=== PATIENT | male | born 1950 | race Caucasian/White ===

== ENCOUNTER 2017-12-31 10:32 | Inpatient (IN) | payer MEDICARE ==
[~2017-12-31] VITALS: Ht 182.9 cm; Wt 102.0 kg
[2017-12-31] MEDS: POTASSIUM CHLOR 20 MEQ PREMIX 100 ML IV PRN ×3 (06:45→21:00)
[2017-12-31 10:36] VITALS: BP 188/109; PULSE 108; RESP 25; TEMP 97.8; O2SAT 99
[2017-12-31] MEDS ORDERED: SODIUM CHLOR 0.9% 1000 ML INJ 1,000 ML IV ONE (10:42)
[2017-12-31] MEDS ORDERED: HEPARIN SODIUM - IV 10,000 UNITS/10 ML VIAL IV PUSH STA (10:42)
[2017-12-31 10:45] VITALS: O2SAT 99
[2017-12-31] MEDS ORDERED: SODIUM CHLORIDE 0.9% FLUSH 10 ML FLUSH IVF PRN (10:45)
[2017-12-31] MEDS ORDERED: HEPARIN SODIUM - IV 10,000 UNITS/10 ML VIAL ONE (10:57)
[2017-12-31] MEDS ORDERED: NITROGLYCERIN INJ 5 ML ONE (10:57)
[2017-12-31] MEDS ORDERED: MIDAZOLAM HCL 2 MG/2 ML VIAL ONE (10:57)
--- NOTE | 2017-12-31 11:00 | PD ---
HPI Chief Complaint: Chest Pain Time Seen by Provider: 10:37 Travel History International Travel<30 days: No Contact w/Intl Traveler<30days: No Traveled to known affect area: No History of Present Illness HPI Patient is a 67 year old male who comes in complaining of chest pain and pain to his left arm that started this morning. He says he went to the gym and then went for a bicycle ride on the beach when the pain started. He denies any shortness of breath, diaphoresis or nausea/vomiting. He says he has never really experienced this before. He has no medical issues that he knows of. He denies cough or cold symptoms. Severity is mild to moderate. PFSH Past Medical History Tetanus Vaccination: Unknown Influenza Vaccination: Yes Past Surgical History Cholecystectomy: Yes Joint Replacement: Yes (hip replacement x3) Social History Alcohol Use: Yes (2-3 times a month ) Tobacco Use: No Substance Use: No Allergies-Medications (Allergen,Severity, Reaction): Coded Allergies: No Known Allergies (Unverified , 12/31/17) Review of Systems Except as stated in HPI: all other systems reviewed are Neg General / Constitutional: No: Fever, Chills HENT: No: Headaches, Lightheadedness Cardiovascular: Positive: Chest Pain or Discomfort Respiratory: No: Shortness of Breath Gastrointestinal: No: Nausea, Vomiting Skin: No Rash, No Change in Pigmentation Neurologic: No: Syncope Physical Exam Narrative GENERAL: Awake and alert, in no acute distress. SKIN: Focused skin assessment warm/dry. No wounds or signs of infection. HEAD: Atraumatic. Normocephalic. EYES: Pupils equal and round. No scleral icterus. ENT: Mucous membranes pink and moist. NECK: Trachea midline. No JVD. CARDIOVASCULAR: Regular rate and rhythm. No murmur appreciated. RESPIRATORY: No accessory muscle use. Clear to auscultation. Breath sounds equal bilaterally. GASTROINTESTINAL: Abdomen soft, non-tender, nondistended. MUSCULOSKELETAL: No obvious deformities. No clubbing. No cyanosis. No edema. NEUROLOGICAL: Awake and alert. No obvious cranial nerve deficits. Motor grossly within normal limits. Normal speech. PSYCHIATRIC: Appropriate mood and affect; insight and judgment normal. Data Data Last Documented VS Vital Signs Date Time Temp Pulse Resp B/P (MAP) Pulse Ox O2 Delivery O2 Flow Rate FiO2 12/31/17 10:45 99 2.00 6/21/18 10:45 Nasal Cannula 12/31/17 10:36 97.8 108 25 188/109 (135) Orders Orders Troponin I (12/31/17 10:42) Ckmb (Isoenzyme) Profile (12/31/17 10:42) Complete Blood Count With Diff (12/31/17 10:42) I-Stat Profile (12/31/17 10:42) I-Stat Creatinine (12/31/17 10:42) Calcium (12/31/17 10:42) Magnesium (Mg) (12/31/17 10:42) Prothrombin Time / Inr (Pt) (12/31/17 10:42) Act Partial Throm Time (Ptt) (12/31/17 10:42) B-Type Natriuretic Peptide (12/31/17 10:42) Chest, Single Ap (12/31/17 10:42) Electrocardiogram (12/31/17 10:42) Oxygen Administration (12/31/17 10:42) Iv Access Insert/Monitor (12/31/17 10:42) Oximetry (12/31/17 10:42) Sodium Chlor 0.9% 1000 Ml Inj (Ns 1000 M (12/31/17 10:42) Sodium Chloride 0.9% Flush (Ns Flush) (12/31/17 10:45) Heparin Inj (Heparin Inj) (12/31/17 10:42) Cardiac Catheterization (12/31/17 ) Midazolam Inj (Versed Inj) (12/31/17 10:57) Fentanyl Inj (Fentanyl Inj) (12/31/17 10:57) Heparin Inj (Heparin Inj) (12/31/17 10:57) Nitroglycerin Inj (Nitroglycerin Inj) (12/31/17 10:57) Admit Order (Ed Use Only) (12/31/17 ) MDM Medical Decision Making Medical Screen Exam Complete: Yes Emergency Medical Condition: Yes Medical Record Reviewed: Yes Interpretation(s) ECG shows ST elevation in leads V2-V4. Differential Diagnosis ACS vs STEMI vs NSTEMI Narrative Course Patient is a 67 year old male who comes in complaining of chest pain and left arm pain. Exam shows no acute abnormalities. ECG is concerning for STEMI. STEMI alert called. Patient took an Aspirin at home. Given Heparin. Nitro withheld as patient took Cialis. Labs sent. Cardiology contacted. Patient taken to the rn cardiac cath. Diagnosis Primary Impression: STEMI (ST elevation myocardial infarction) Qualified Codes: I21.3 - ST elevation (STEMI) myocardial infarction of unspecified site Admitting Information Admitting Physician Requests: it Jesusita Abreu MD Dec 31, 2017 11:00
[2017-12-31 11:05] LABS: AUTOMATED NEUTROPHIL # 6.5 TH/MM3 (1.8-7.7); BASOPHIL % 0.5 % (0.0-2.0); EOSINOPHIL % 0.5 % (0.0-4.0); HEMATOCRIT 45.5 % (39.0-51.0); HEMOGLOBIN 16.2 GM/DL (13.0-17.0); LYMPH % 18.9 % (9.0-44.0); LYMPHOCYTE # 1.7 TH/MM3 (1.0-4.8); MEAN CELL VOLUME 86.7 FL (80.0-100.0); MEAN CORPUSCULAR HEMOGLOBIN 30.8 PG (27.0-34.0); MEAN CORPUSCULAR HGB CONC 35.5 % (32.0-36.0); MEAN PLATELET VOLUME 8.2 FL (7.0-11.0); MONO % 8.5 % (0.0-8.0); MONOCYTE # 0.8 TH/MM3 (0-0.9); NEUT % 71.6 % (16.0-70.0); PLATELET COUNT 242 TH/MM3 (150-450); RED BLOOD COUNT 5.24 MIL/MM3 (4.50-5.90); RED CELL DISTRIBUTION WIDTH 13.6 % (11.6-17.2)
[2017-12-31] MEDS ORDERED: CIAL2.5T PO (11:11)
[2017-12-31] MEDS ORDERED: ASPI81TA23 PO (11:11)
[2017-12-31] MEDS ORDERED: SODIUM NITROPRUSSIDE 50 MG/2 ML VIAL ONE (11:14)
[2017-12-31 11:22] LABS: CALCIUM 9.3 MG/DL (8.5-10.1)
[2017-12-31 11:27] LABS: MAGNESIUM 2.1 MG/DL (1.5-2.5)
--- NOTE | 2017-12-31 11:29 | RADRPT ---
EXAM DATE: 12/31/2017 10:56 AM EDT AGE/SEX: 67 years / Male INDICATIONS: STEMI- alert CLINICAL DATA: This is the patient's initial encounter. Patient reports that signs and symptoms have been present for 1 day and indicates a pain score of 2/10. MEDICAL/SURGICAL HISTORY: None. None. COMPARISON: [facility], XR CHEST PA AND LAT, 02/27/2015. . FINDINGS: Portable AP view of the chest demonstrates a normal-sized cardiac silhouette. No effusion, consolidat ion, or pneumothorax is identified. The bones and soft tissues demonstrate no acute finding. Lungs ar e mildly underinflated. CONCLUSION: No acute cardiopulmonary abnormality is identified. Electronically signed by: Vinny Hensley MD 12/31/2017 11:27 AM EDT
[2017-12-31 11:31] LABS: TROPONIN I 0.24 NG/ML (0.02-0.05)
[2017-12-31] MEDS ORDERED: HEPARIN-D5W 25,000 U/250 ML 250 ML ONE (11:38)
[2017-12-31] MEDS ORDERED: TIROFIBAN INFUSION INJ 250 ML IV ONE (11:47)
[2017-12-31] MEDS ORDERED: PRASUGREL 10 MG TAB ONE (11:47)
[2017-12-31] MEDS: TIROFIBAN INFUSION INJ 250 ML IV SCH (12:11)
--- NOTE | 2017-12-31 12:28 | CATHPROC ---
[employer] HIS Report Study Information Study Number Admission Scheduled Start Study Start [id number] Dec 31 2017 10:32AM 12/31/2017 Dec 31 2017 10:58AM [place] [facility] Cardiac Catheterization Admit Source Facility Department Emergency department [facility] - Associate Professor Of Law Physician and Clinical Staff Initial Puma Burton Industrial Organization ManagerTess Sterling,RAVINDER Industrial Organization ManagerJodi Raymundo,RN Recorder Jodi Ramirez,RT(R) Scrub Victor Hugo, Pat,DATA MANAGEMENT TECH2 Procedures Performed Procedure Location (Site) Vessel Name Angiogram LV LV Ventricle Coronary Angiograms RCA Right Coronary Drug Eluting Inflatio LAD Mid Left Coronary IABP Fem Art (left) Femoral Art L Heart Cath LV Gram-hand inj. LV LV Ventricle Wire insertion Fem Art (left) Femoral Art Wire insertion Fem Art (right) Femoral Art Equipment Time Staff Nurse Icu Resource Team Description Size Mfg Part Number Used/Scraped [id number] 11:17 PEL[employer] WIRE, ASAHI PROWATER 180CM 180CM Used *[id number] TRANSDUCER, TRUWAVE [id number] 11:11 BOLAÑOS GUERRERO * Used W/STOCKCOCK *[id number] [id number] *[id number] [id number] *[id number] *[id number] PIGTAIL ANG. 145 INFINITI [id number] CATHETER *[id number] *[id number] BALLOON, FR8 50CC SENSATION [id number] 11:40 MAQUET FR 8 50CC Used PLUS 01U *[id number] 11:11 [employer] BLANKET,WARM AIR CCL * Used *[id number] 11:11 [employer] PACK, CCL CUSTOM * Used *[id number] 11:11 IdenIve PACER PEN, SKIN DUAL W/ RULER * Used *[id number] 11:21 MEDTRONIC BALLOON, 2.5 X 10MM EUPHORA 10MM Used *[id number] 11:20 MEDTRONIC STENT, 3.0 12 INTEGRITY 3.0 12 Used *[id number] 11:22 AdhereTech 30 KAITLIN INDEFLATOR Used *[id number] 11:11 [employer]hereTech WIRE, 3MMJ .035 180CM 180CM Used *[id number] 11:48 [employer] PACER SHEATH, FR8.5 MERIT 11CM FR 8.5 [id number] Used [id number] 11:11 NAMIC MANIFOLD, 4 PORT * Used *[id number] 11:11 NYCOMED OMNIPAQUE, 350 MG, 150ML 150ML [id number] Used [id number] 11:11 TERUMO MEDICAL SHEATH, FR4 TERUMO (10CM) FR 4 Used *[id number] 11:12 TERUMO MEDICAL SHEATH, FR6 TERUMO (10CM) FR 6 Used *[id number] 11:14 TERUMO MEDICAL SHEATH, FR6 TERUMO (10CM) FR 6 Used *[id number] 11:44 TERUMO MEDICAL SHEATH, FR8 TERUMO (10CM) FR 8 Used *[id number] Equipment Model, Serial, Lot Number and Expiration Data Description Model Number Serial Number Lot Number Expiration Date STENT, 3.0 12 INTEGRITY [id number] 04-13-2019 History: Allergies Allergy Reaction No Known Allergies History: Risk Factors Family History of Hypertension Dyslipidemia Previous PR Previous Heart Failure Premature CAD No No No No No Prior Valve Prior PCI Prior CABG Surgery No No No Cerebrovascular Peripheral Artery Chronic Lung On Dialysis Diabetes Disease Disease Disease No No No No No History: Symptoms/Diagnosis Selection Items Chest pain History: Stress Tests Stress or Imaging Studies Performed No History: Other Current Smoker No Labs Hgb (g/dl) Hct (%) RBC (MIL/MM3) WBC (l/cumm) Platelets (thousands) 11.60-17.00 35.00-51.00 4.00-5.90 4.00-11.00 150.00-450.00 16.2 45.5 5.2 9 242 Glucose (mg/dl) BUN (mg/dl) Creatinine (mg/dl) BUN:Creatinine (1:x) 74.00-106.00 7.00-18.00 0.50-1.30 10.00-20.00 129 27 1.2 22.5 Na (meq/l) K (meq/l) Cl (meq/l) Ca (mg/dl) 136.00-145.00 3.50-5.10 98.00-107.00 8.50-10.10 142 3.8 106 9.3 PT (sec) PTT (sec) INR (PTT:PT) 9.80-11.60 24.30-30.10 0.90-1.10 10 23.8 1 Troponin I (ng/ml) CPK (u/l) CPK-MB (ng/ML) 0.02-0.05 26.00-308.00 0.50-3.60 0.24 124 2.8 Medication Medication Total Dose (Bolus/Oral) Medication Total Dosage/Unit 1% XYLOCAINE 40 mL AGGRASTAT BOLUS 54 mL EFFIENT 60 mg FENTANYL 50 mcg HEPARIN 3000 units Medications (Bolus/Oral) Medication Time Given Dosage/Unit Administered By Reason 1% XYLOCAINE 12/31/2017 11:13:35 AM 20 mL Nate, Puma 20 mL 1% XYLOCAINE given by Puma Sullivan in Right Groin via Subcutaneous. HEPARIN 12/31/2017 11:19:24 AM 3000 units Nate, Puma 3000 units HEPARIN given in lab by Puma Sullivan via Peripheral IV. 1% XYLOCAINE 12/31/2017 11:27:48 AM 20 mL Nate, Puma 20 mL 1% XYLOCAINE given in lab by Puma Sullivan in Left Groin via Subcutaneous. FENTANYL 12/31/2017 11:29:50 AM 50 mcg Tess Villafuerte 50 mcg FENTANYL given in lab by Tess Villafuerte RN via Peripheral IV. EFFIENT 12/31/2017 11:50:08 AM 60 mg Tess Villafuerte 60 mg EFFIENT given in lab by Tess Villafuerte, RAVINDER via Oral. AGGRASTAT BOLUS 12/31/2017 12:08:44 PM 54 mL Tess Villafuerte 54 mL AGGRASTAT BOLUS given in lab by Tess Villafuerte RN in Left Antecubital via Peripheral IV. Medication (Drip) Medication Time Given Dosage/Unit Concentration/Unit Diluent (ml) Solution AGGRASTAT DRIP 12/31/2017 12:11:39 PM 0.15 mcg/kg/min 12.5 mg 250 NaCl .9 0.15 mcg/kg/min AGGRASTAT DRIP given in lab by Tess Villafuerte, RAVINDER via Peripheral IV. Pump/Drip Flow = 19.8 ml/hr using NaCl .9 with a concentration of 12.5 mg in 250 ml. HEPARIN DRIP 12/31/2017 12:07:46 PM 1000 units/hr 69635 units 250 D5W 1000 units/hr HEPARIN DRIP given in lab by Tess Villafuerte RN via Peripheral IV. Pump/Drip Flow = 10 ml/hr [place] [address] units in 250 ml. IV Solutions 12/31/2017 11:08:28 AM 50 mL (IV) NaCl .9 IV Solutions given by Tess Villafuerte RN via Peripheral IV. Pump/Drip Flow using NaCl .9. Ordered by Puma Sullivan. Initial Case Assessment Cardiovascular HR Rhythm NIBP Chest Pain [address] st 157/96 4 Edema Present Skin color Skin None Normal Warm Dry Circulatory - Right Pulses Dorsalis Pedis Femoral 2 2 Scale (0,1,2,3,4,d) Circulatory - Left Pulses Dorsalis Pedis Femoral 2 2 Scale (0,1,2,3,4,d) Circulatory - Lower Extremities Color Lower Right Color Lower Left Normal Normal Neurological State Oriented to time-place- Alert Moves all extremities person Respiration - General Respiration Rate SpO2 (%) O2 (lpm) (B/min) 14 97 2 Final Case Assessment Cardiovascular HR Rhythm NIBP Chest Pain 80 reg 139/122 0 Edema Present Skin color Skin None Normal Warm Circulatory - Right Pulses Dorsalis Pedis Femoral 2 2 Scale (0,1,2,3,4,d) Circulatory - Left Pulses Dorsalis Pedis Femoral 2 2 Scale (0,1,2,3,4,d) Circulatory - Lower Extremities Color Lower Right Color Lower Left Normal Normal Neurological State Oriented to time-place- Alert Moves all extremities person Respiration - General Respiration Rate SpO2 (%) O2 (lpm) (B/min) 13 100 2 Chronological Log Time Study Chronological Log 10:58:42 Patient arrived via Bed. 10:58:51 Patient Name, D.O.B, / Armband Verified By R.N. 10:59:34 Consent signed by the physician and the patient and verified by the Associate Professor Of Law staff. 11:06:25 Bilateral groins prepped with 2% chlorhexidine, and draped after a 3 minute waiting time. 11:06:43 Patient has been NPO for More than 6Hrs. 11:06:44 Skin Breakdown- none per patient 11:06:54 Disposable Defibrillator Pads Placed On Patient. 11:07:00 A # 20 IV was noted in the Antecubital (left). Grade = 0 11:08:15 A # 20 IV was noted in the Antecubital (right). Grade = 0 IV Solutions given by Tess Villafuerte, RAVINDER via Peripheral IV. Pump/Drip Flow using NaCl .9. Orde red by Nate, 11:08:28 Puma. 11:08:41 Pressure channel 1 zeroed. 11:08:47 History and physical on the chart or being dictated. Assessment: Initial Case, PM=266 BPM, Rhythm=st, MFWY=218/96 mmhg, Chest Pain=4, Edema=None, Co danna=Normal, Skin = Warm, Dry Right Pulses: Carlos Ped=2, Femoral=2 Left Pulses: Carlos Ped=2, Femoral=2 11:08:49 Lower Right Extremities: Color=Normal Lower Left Extremities: Color=Normal Neurological: State=Alert, Ox3, FIERRO Respiration: Resp=14 B/min, SpO2=97 %, O2=2 lpm Vitals capture started with the following parameters, Patient=Adult, Interval=5 min, Initial Pr okyemx=632 mmHg, 11:09:03 Deflation Rate=5 mmHg, Cuff placed on Left Arm 11:10:00 PH=122 bpm, VQWP=254/96 mmhg, SpO2=97.0 %, Resp=13 B/min, Pain=4, Michael=10, Terrell=2 11:10:48 MD arrived. Time Out. Correct patient, correct procedure, correct physician, labs, allergies, and equipment verified with slab worker 11:13:04 team present. Fire risk assesment completed (see hard stop sheet for coding). Time Out Conc urred by MD and individual staff in procedure. 11:13:19 Case Start 11:13:21 Verbal Stimulation=2 Physical Stimulation=2 Airway=2 Respiration=2 TOTAL=8. (0=absent, 1=li mited, 2=present) 11:13:35 20 mL 1% XYLOCAINE given by Puma Sullivan in Right Groin via Subcutaneous. 11:13:48 Access site was Right Femoral Artery.rt 11:13:54 A wire was inserted via Fem Art (right). 11:13:56 A SHEATH, FR6 TERUMO (10CM) FR 6 was advanced into the Fem Art (right) using the Percutaneo us technique. 11:14:10 Activated Clotting Time Drawn 11:14:16 Reference ECG taken A JR 4.0 INFINITI CATHETER FR 4 was advanced over a wire. OMNIPAQUE, 350 MG, 150ML 150ML was us ed for 11:14:32 injections. 11:15:07 FV=341 bpm, PVSG=017/58 mmhg, SpO2=93.0 %, Resp=13 B/min, Pain=4, Michael=10, Terrell=2 Recorded Pressure: LV, VK=199, Condition=Condition 1 11:15:11 (Left Ventricle) LV 115/60/63 11:15:25 The LV was manually injected with 8 cc's and visualized. OMNIPAQUE, 350 MG, 150ML 150ML use d. Recorded Pressure: LV, Ao, HR=97, Condition=Condition 1 11:15:27 (Left Ventricle) LV 146/20/35, (Aorta) Ao 152/101/127 11:16:15 The RCA was injected and visualized at various angles. OMNIPAQUE, 350 MG, 150ML 150ML used . 11:16:25 Catheter was removed A XB 3.5 GUIDE CATHETER FR 6 was advanced over a wire. OMNIPAQUE, 350 MG, 150ML 150ML was used for 11:17:10 injections. Recorded Pressure: Ao, SN=942, Condition=Condition 1 11:17:53 (Aorta) Ao 150/99/125 11:18:14 dr boucher/arnoldo consulted 11:18:49 ACT (Normal Range 90-180) = 222 11:19:13 A WIRE, ASAIntrinsic Life[employer]iences PROWATER 180CM 180CM was inserted via Fem Art (right). 11:19:24 3000 units HEPARIN given in lab by Puma Sullivan via Peripheral IV. 11:20:00 DX=831 bpm, IFMF=599/99 mmhg, SpO2=96.0 %, Resp=16 B/min 11:20:00 reperfusion A STENT, 3.0 12 INTEGRITY 3.0 12 was advanced through a XB 3.5 GUIDE CATHETER FR 6 over a WIRE, ASAHI 11:21:15 PROWATER 180CM 180CM. A STENT, 3.0 12 INTEGRITY 3.0 12 was deployed using a 30 KAITLIN INDEFLATOR at 16 atmospheres for 1 8 seconds in 11:21:28 the LAD Mid. 11:22:43 reperfusion rhythum Ventricular Tachycardia noted. shock 11:23:14 200joules 11:23:53 Ventricular Fibrillation noted. shock 11:24:02 300joules pt responding 11:24:26 11:24:44 Catheter was removed 11:24:59 HR=82 bpm, RLJR=609/101 mmhg, Resp=8 B/min, Pain=4, Michael=10, Terrell=2 11:27:27 sheath pulled out pressure held 11:27:48 20 mL 1% XYLOCAINE given in lab by Puma Sullivan in Left Groin via Subcutaneous. 11:29:04 Access site was Left Femoral Artery. 11:29:10 A wire was inserted via Fem Art (left). 11:29:29 A SHEATH, FR6 TERUMO (10CM) FR 6 was advanced into the Fem Art (left) using the Darci brooks technique. 11:29:50 50 mcg FENTANYL given in lab by Tess Villafuerte, RN via Peripheral IV. 11:29:58 HR=96 bpm, TJXF=437/96 mmhg, Resp=6 B/min, Pain=4, Michael=10, Terrell=2 11:31:16 power injector loaded now by harvey villafuerte and verified by todd ramirez A PIGTAIL ANG. 145 INFINITI CATHETER FR 6 was advanced over a wire. OMNIPAQUE, 350 MG, 150ML 15 0ML was 11:31:50 used for injections. 11:33:51 The LV was injected at 10 cc/sec for a total of 20. OMNIPAQUE, 350 MG, 150ML 150ML used. 11:34:15 Catheter was removed Recorded Pressure: Ao, HR=97, Condition=Condition 1 11:34:31 (Aorta) Ao 132/76/98 11:34:42 Sheath exchanged for intra-aortic balloon insertion. 11:34:57 JF=483 bpm, ROQY=466/93 mmhg, Resp=21 B/min, Pain=4, Michael=10, Terrell=2 11:35:12 ACT (Normal Range 90-180) = 278 11:39:54 HR=97 bpm, FMBG=347/90 mmhg, Resp=27 B/min, Pain=4, Michael=10, Terrell=2 A SHEATH, FR8.5 MERIT 11CM FR 8.5 was exchanged in the Fem Art (left). This was necessary in or mireille to 11:43:41 accomodate a larger catheter. An BALLOON, FR8 50CC SENSATION PLUS FR 8 50CC was advanced to the descending aorta. Proper plac ement was 11:44:24 confired under fluoroscopy and the balloon was sutured in place. Ratio = ~RATIO~. Augmented BP ~SYS~/~AN~ 11:44:53 HR=94 bpm, AJJJ=045/84 mmhg, Resp=11 B/min, Pain=4, Michael=10, Terrell=2 11:49:58 HR=98 bpm, IZKP=253/79 mmhg, Resp=17 B/min, Pain=4, Michael=10, Trerell=2 11:50:08 60 mg EFFIENT given in lab by Tess Villafuerte, RAVINDER via Oral. 11:54:55 HR=92 bpm, GBYV=966/85 mmhg, Resp=11 B/min, Pain=4, Michael=10, Terrell=2 11:57:08 balloon pump started 1:1 11:59:02 feb 93/57 11:59:52 HR=90 bpm, USXY=781/83 mmhg, Resp=20 B/min, Pain=4, Michael=10, Terrell=2 12:01:24 pump sutured/stat locked left groin 12:02:49 Case End (Physician broke scrub) 12:04:57 HR=86 bpm, PNWR=515/72 mmhg, Resp=10 B/min, Pain=4, Michael=10, Terrell=2 1000 units/hr HEPARIN DRIP given in lab by Tess Villafuerte, RAVINDER via Peripheral IV. Pump/Drip Abelardo w = 10 ml/hr using 12:07:46 D5[place] [address] units in 250 ml. 12:08:44 54 mL AGGRASTAT BOLUS given in lab by Tess Villafuerte, RAVINDER in Left Antecubital via Periphera l IV. 12:09:54 HR=82 bpm, EUJQ=443/87 mmhg, Resp=8 B/min, Pain=4, Michael=10, Terrell=2 0.15 mcg/kg/min AGGRASTAT DRIP given in lab by Tess Villafuerte, RN via Peripheral IV. Pump/Drip Flow = 19.8 12:11:39 ml/hr using NaCl .9 with a concentration of 12.5 mg in 250 ml. 12:14:55 HR=87 bpm, JWAG=996/88 mmhg, Resp=16 B/min, Pain=4, Michael=10, Terrell=2 12:20:54 HR=82 bpm, JDWO=787/122 mmhg, Resp=11 B/min, Pain=4, Michael=10, Terrell=2 Assessment: Final Case, HR=80 BPM, Rhythm=reg, PABE=312/122 mmhg, Chest Pain=0, Edema=None, Color=Normal, Skin = Warm Right Pulses: Carlso Ped=2, Femoral=2 Left Pulses: Carlos Ped=2, Femoral=2 12:21:26 Lower Right Extremities: Color=Normal Lower Left Extremities: Color=Normal Neurological: State=Alert, Ox3, FIERRO Respiration: Resp=13 B/min, SzH6=309 %, O2=2 lpm 12:22:01 Catheter(s) removed without difficulty 12:22:18 Sterile dressing applied to site 12:22:29 No case complications noted. 12:22:39 No case complications noted. 12:22:41 Cine recording checked. 12:22:44 Bedside Report will be given. 12:22:44 Implantable Device card placed in patient's chart. 12:22:55 Verbal Stimulation=2 Physical Stimulation=2 Airway=2 Respiration=2 TOTAL=2. (0=absent, 1=l imited, 2=present) 12:23:09 A Left Heart Cath was performed. 12:23:49 [facility] Clinical correlaton risk stratification. 12:25:47 HR=91 bpm, IWCP=068/101 mmhg, AjZ9=998 %, Resp=13 B/min, Pain=4, Michael=10, Terrell=2 12:26:36 Vitals capture stopped. End Study - Contrast Media Used In Study Contrast Total Opened (mL) Total Used (mL) Total Wasted (mL) Omnipaque 115 115 0 End Study - Maximum Contrast Load Max Contrast Load (mL) 458.3 End Study - Radiation Exposure Fluoro Time (minutes) 4.3 End Study - Patient Disposition Complications Transferred To Interventional Outcome No Critical Care Bed successful
[2017-12-31] MEDS ORDERED: PRASUGREL 10 MG TAB PO ONE (12:30)
[2017-12-31] MEDS ORDERED: MISC INFORMATION XX ONE (12:30)
[2017-12-31] MEDS ORDERED: SODIUM CHLORIDE 0.9% FLUSH 10 ML FLUSH IV FLUSH PRN ×2 (12:30→13:30)
--- NOTE | 2017-12-31 12:33 | MB ---
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 He was riding his bike this morning and developed chest pain at approximately 11 a.m. He rode his bike 5 miles back to his car, drove himself to the ER. He was found to have an anterior injury pattern on EKG. STEMI was called. The patient was emergently transported to the [facility]. Maximum chest pain was 6/10. 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 PAST MEDICAL HISTORY: Per history of present illness. PAST SURGICAL HISTORY: He has a history of cholecystectomy, bilateral hip replacement, joint replacement x3. SOCIAL HISTORY: Denies alcohol use. ALLERGIES: NONE. MEDICATIONS: No medications prior to admission. Received aspirin, heparin bolus and drip in the ER. PHYSICAL EXAMINATION: VITAL SIGNS: Initially blood pressure 188/109, pulse is 108, respiratory rate 25, temperature 97.8, and saturations 100% on 2 liters nasal cannula. GENERAL: He is alert and oriented x3, in mild to moderate distress. NECK: Supple. No JVD. No bruit. CARDIOVASCULAR: S1, S2. No murmurs, rubs, gallops. LUNGS: Clear to auscultation bilaterally. ABDOMEN: Soft, nontender, nondistended with positive bowel sounds. EXTREMITIES: No lower extremity edema. LABORATORY DATA: White count 9.0, hemoglobin 16.2, hematocrit 45.5, platelet count 242. INR is 1.0. Sodium 142, potassium 3.8, chloride 106, BUN is 27, creatinine 1.2, calcium 9.3, magnesium 2.1. Troponin 0.24. CK is 124. BNP is 38. INR is 1.0. Chest x-ray, no acute cardiopulmonary abnormalities identified. EKG shows normal sinus rhythm with 3-[address] segment elevation in V2, V3, V4, Q-waves in the inferior leads. DIAGNOSES: 1. ST-elevation myocardial infarction. 2. Probable prior inferior myocardial infarction, age indeterminate. 3. Hyperglycemia. DISCUSSION: The patient has received aspirin, heparin bolus and drip in the ER. Plan is for emergent left heart catheterization. Further recommendations based on the details of his coronary anatomy, left ventriculography. Puma Sullivan MD AWRadha/TL , 12:12 PM , 12:31 PM
--- NOTE | 2017-12-31 12:53 | MA ---
cc: Puma Sullivan MD DATE: 12/31/2017 PROCEDURE PERFORMED: Left heart catheterization, left ventriculography, coronary angiography, aortic root angiography, left common femoral angiography, percutaneous coronary intervention with bare metal stent of mid left anterior descending. INDICATIONS FOR PROCEDURE: STEMI. DESCRIPTION OF PROCEDURE: The patient was brought to the cardiac catheterization laboratory, prepped and draped in the usual sterile fashion. A 10 mL of 1% lidocaine was used to locally anesthetize the right common femoral artery. A 6-Mosotho sheath placed in right common femoral artery. A 4-Mosotho JR4, a 6-Mosotho XB 3.5 guide, and a 6-Mosotho pigtail catheter were used to perform left and right coronary angiography, left ventriculography, aortic root angiography and left common femoral angiography. FINDINGS: The LV pressure is 140/25-28. EF 30%. The inferoapical wall is severely hypokinetic to akinetic. Anterior wall is severely hypokinetic. Right coronary artery has a 90% proximal stenosis. It is occluded after what appears to be a slightly aneurysmal or ectatic segment. There is perfusion of an RV branch, but no perfusion beyond the RV branch. Appears to be calcification in the mid to distal segment fluoroscopically. Left main coronary artery has no significant disease angiographically. The LAD has mild diffuse disease in the proximal segment up to 20% angiographically. LAD is occluded at the first septal spool tender vessel. The first diagonal artery small to medium size vessel, reference vessel diameter of 2 mm. There is a proximal 90% stenosis. The left circumflex vessel is extremely tortuous in the proximal segment, has a near 150 degree bend off the left main with a high-grade 95% stenosis. Reference vessel diameter is 4 mm. Supplies a large, at least 3.5-4 mm, obtuse marginal vessel, which approaches the apex, which itself has mild to moderate diffuse disease up to 30-40% angiographically. Note, the initial ACT was 227. We gave an additional 3000 units of heparin with a final ACT of 278. A 6-Mosotho XB 3.5 guide 0.014 [place] guidewire was used to cross the mid LAD lesion. This did result in reperfusion of the LAD with a 95% stenosis. This was directly stented with a 3.0 x 12 Integrity stent, 1 inflation, 16 atmospheres for 20 seconds. Note at 16 atmospheres, there was slight under deployment of the distal segment of the stent. Stenosis went from 100% with ZAHRAA 0 flow to 0% with ZAHRAA 3 flow. The patient's chest pain was completely resolved. I did review the films with Dr. Cabrera and Dr. Rees. We did feel that risk/benefit ratio favored placing an intraaortic balloon pump given the severe 3-vessel coronary artery disease with cardiomyopathy as detailed above. While undergoing planning to put the balloon pump in, the patient developed V-fib approximately 5 minutes after reperfusion, did not respond to the first shock of 260 joules. He did cardiovert with a second shock of 260 joules. While the patient was in ventricular fibrillation, he sat up abruptly due to the shock and the right femoral sheath came out. We applied immediate pressure with good control of hemostasis. Got access in the left common femoral artery, then did an aortic root angiogram, which showed no evidence of aortic valve regurgitation. Aortic root appeared to be mildly dilated. Left common femoral artery was large with no stenosis. We then placed an intraaortic balloon pump sheath in the left common femoral artery and placed an intraaortic balloon pump set at one-to-one. The patient remained hemodynamically stable. Initial augmented pressure on the balloon pump was 112 mmHg. CONCLUSION: 1. ST elevation myocardial infarction; culprit, occluded mid left anterior descending as detailed above. 2. Severe 3-vessel coronary artery disease as detailed above. 3. Ischemic cardiomyopathy, ejection fraction 25-30% with severe hypokinesis to akinesis of the inferoapical and distal anteroapical wall. 4. Elevated left ventricular end-diastolic pressure equal to 27. 5. Mildly enlarged aortic root with no evidence of aortic insufficiency. 6. Normal appearing left common femoral artery. 7. Status post percutaneous coronary intervention with bare metal stent of the mid LAD. Reperfusion of the LAD did reveal a wraparound LAD with no high-grade stenoses beyond the stented segment. 8. Successful placement of an intraaortic balloon pump. RECOMMENDATIONS: Start Aggrastat drip protocol, 60 of p.o. Effient now and then 10 mg daily for 12-15 months. Aspirin 162 mg daily. Will continue heparin drip while intraaortic balloon pump is placed. Place a CT surgery consult. Get a 2D echo. Check a fasting lipids guidelines. ADDENDUM: Note, there are left to right collaterals to the right posterior descending coronary artery. The right PDA fills to a point of occlusion in the proximal segment. Reference vessel diameter is probably 2.25 to maybe 2.5 mm. Again, recommend CT surgery consult for consideration of risks and benefits of elective CABG. MD MELCHOR Leonard/SB , 12:18 PM , 12:52 PM
--- NOTE | 2017-12-31 13:07 | HHI.HP ---
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 Apparently he rode bike 5 miles back to the car and presented to the emergency department. Stat EKG showed anterolateral ST elevations and a STEMI alert was called. He was given aspirin and was emergently taken to the [facility]. He has no previous history of coronary artery disease or any other significant coronary artery risk factors other than age and sex. Cardiac catheterization by Dr. Sullivan showed occluded mid left anterior descending to be the culprit lesion, a bare-metal stent was placed. Patient was also found to have three-vessel coronary artery disease and ischemic cardiomyopathy with EF 25-30% with severe hypokinesis to akinesis of the inferoapical and distal anteroapical wall. Patient was continued on IV heparin, Aggrastat was started IV. Patient was also loaded with Effient. Dr. Sullivan placed IABP after PCI and stent. CT surgery was consulted for three-vessel coronary artery disease for CABG evaluation I evaluated the patient in the ICU. He is lying on bed denies any chest pain at this time, mildly anxious. IABP in place without hematoma at the insertion site-intermittently augmenting well. Cardiac catheterization site at right groin also without any hematoma. According to Dr. Sullivan patient had reperfusion arrhythmia/ventricular fibrillation in [facility] which needed cardioversion x2. Will start on IV amiodarone per Dr. Vicente. I will also add carvedilol 3.125 mg twice daily, and Lipitor Review of Systems ROS Limitations: Other (as per HPI) Past Family Social History Allergies: Coded Allergies: No Known Allergies (Unverified , 12/31/17) Past Medical History No significant past medical history Past Surgical History Cholecystectomy, bilateral hip replacement Reported Medications Apparently not on any meds at home Active Ordered Medications Currently on IV heparin and IV Aggrastat infusions Family History Father had atrial fibrillation at the age of 80 Mother of complications from Parkinson's disease Social History No tobacco use. Occasional alcohol use Physical Exam Vital Signs Vital Signs Date Time Temp Pulse Resp B/P (MAP) Pulse Ox O2 Delivery O2 Flow Rate FiO2 12/31/17 10:45 99 2.00 12/31/17 10:45 100 Nasal Cannula 2.00 12/31/17 10:36 97.8 108 25 188/109 (135) 99 Physical Exam GENERAL: Awake and alert, in mild distress. Denies chest pain at this time SKIN: Warm/dry. HEAD: Atraumatic. Normocephalic. EYES: Pupils equal and round. No scleral icterus. ENT: Mucous membranes pink and moist. NECK: Trachea midline. No JVD. CARDIOVASCULAR: Regular rate and rhythm. No murmur appreciated, but exam limited by conducted IABP sounds. Intermittently augmenting well RESPIRATORY: No accessory muscle use. Clear to auscultation. Breath sounds equal bilaterally. GASTROINTESTINAL: Abdomen soft, non-tender, nondistended. MUSCULOSKELETAL: Right groin cath site without hematoma. Left groin IABP incision site without hematoma. Peripheral pulses are palpable NEUROLOGICAL: Awake and alert. No obvious cranial nerve deficits. Motor grossly within normal limits. Normal speech. Laboratory Laboratory Tests Test 12/31/17 10:45 White Blood Count 9.0 Red Blood Count 5.24 Hemoglobin 16.2 Bedside Hemoglobin 15.3 Hematocrit 45.5 Bedside Hematocrit 45.0 Mean Corpuscular Volume 86.7 Mean Corpuscular Hemoglobin 30.8 Mean Corpuscular Hemoglobin Concent 35.5 Red Cell Distribution Width 13.6 Platelet Count 242 Mean Platelet Volume 8.2 Neutrophils (%) (Auto) 71.6 Lymphocytes (%) (Auto) 18.9 Monocytes (%) (Auto) 8.5 Eosinophils (%) (Auto) 0.5 Basophils (%) (Auto) 0.5 Neutrophils # (Auto) 6.5 Lymphocytes # (Auto) 1.7 Monocytes # (Auto) 0.8 Eosinophils # (Auto) 0.0 Basophils # (Auto) 0.0 CBC Comment DIFF FINAL Differential Comment Prothrombin Time 10.0 Prothromb Time International Ratio 1.0 Activated Partial Thromboplast Time 23.8 Bedside Sodium 142 Bedside Potassium 3.8 Bedside Chloride 106 Bedside Blood Urea Nitrogen 27 Bedside Creatinine 1.2 Bedside Glucose 129 Calcium Level 9.3 Magnesium Level 2.1 Total Creatine Kinase 124 Creatine Kinase MB 2.8 Troponin I 0.24 B-Type Natriuretic Peptide 38 Result Diagram: 12/31/17 1045 Imaging Chest x-ray shows no acute finding Septic Shock Reassessment Septic shock perfusion: reassessment completed Caprini VTE Risk Assessment Caprini VTE Risk Assessment: Mod/High Risk (score >= 2) Caprini Risk Assessment Model Point Value = 1 Point Value = 2 Point Value = 3 Point Value = 5 Age 41-60 Minor surgery BMI > 25 kg/m2 Swollen legs Varicose veins or History of unexplained or recurrent spontaneous Oral contraceptives or hormone replacement Sepsis (< 1 month) Serious lung disease, including pneumonia (< 1 month) Abnormal pulmonary function Acute myocardial infarction Congestive heart failure (< 1 month) History of inflammatory bowel disease Medical patient at bed rest Age 61-74 Arthroscopic surgery Major open surgery (> 45 min) Laparoscopic surgery (> 45 min) Malignancy Confined to bed (> 72 hours) Immobilizing plaster cast Central venous access Age >= 75 History of VTE Family history of VTE Factor V Leiden Prothrombin [id number] Lupus anticoagulant Anticardiolipin antibodies Elevated serum homocysteine Heparin-induced thrombocytopenia Other congenital or acquired thrombophilia Stroke (< 1 month) Elective arthroplasty Hip, pelvis, or leg fracture Acute spinal cord injury (< 1 month) Prophylaxis Regimen Total Risk Factor Score Risk Level Prophylaxis Regimen 0-1 Low Early ambulation 2 Moderate Order ONE of the following: *Sequential Compression Device (SCD) *Heparin 5000 units SQ BID 3-4 Higher Order ONE of the following medications: *Heparin 5000 units SQ TID *Enoxaparin/Lovenox 40 mg SQ daily (WT < 150 kg, CrCl > 30 mL/min) *Enoxaparin/Lovenox 30 mg SQ daily (WT < 150 kg, CrCl > 10-29 mL/min) *Enoxaparin/Lovenox 30 mg SQ BID (WT < 150 kg, CrCl > 30 mL/min) AND/OR *Sequential Compression Device (SCD) 5 or more Highest Order ONE of the following medications: *Heparin 5000 units SQ TID (Preferred with Epidurals) *Enoxaparin/Lovenox 40 mg SQ daily (WT < 150 kg, CrCl > 30 mL/min) *Enoxaparin/Lovenox 30 mg SQ daily (WT < 150 kg, CrCl > 10-29 mL/min) *Enoxaparin/Lovenox 30 mg SQ BID (WT < 150 kg, CrCl > 30 mL/min) AND *Sequential Compression Device (SCD) Assessment and Plan Assessment and Plan NEURO: -Use as needed morphine for pain RESP: -Nasal cannula oxygen, if needed to keep sats above 92% -Aggressive pulmonary toilet CV: Acute STEMI Ischemic cardiomyopathy Multivessel coronary artery disease Reperfusion arrhythmia/ventricular fibrillation -Patient is status post cardiac catheterization and BMS to the LAD -Received aspirin in the ED, continue aspirin daily -Post PCI/stent placed on Effient, IV Aggrastat -Continue IV heparin -IABP with one-to-one augmentation -Start loading dose of amiodarone IV followed by p.o. amiodarone -Start carvedilol 3.125 mg every 12 -Lipitor started by cardiology will increase to 40 mg nightly, check lipid profile -Check 2D echo tomorrow evening per Dr. Sullivan -Cardiothoracic surgery Dr. Vicente consulted for possible CABG GI: -Diet when cleared by Dr. Sullivan -IV famotidine for GI prophylaxis : -Monitor renal function closely. Place Tillman/condom catheter with IABP in place ID: -Periprocedural antibiotics per cardiology HEME: -Monitor CBC, CMP, coags ENDO: -Electrolyte replacement per protocol PROPH: -IV heparin, IV famotidine LINES: -Utilize peripheral IVs, central line if needed CC time 45 min Addendum: Unable to locate IABP tip on CXR, radiologist reported possible tip at L 2 level on KUB. D/W Dr. Vicente and reviewed films with him. Unlikely to be that low given intermittent adequate augmentation. Also there is no evidence of catheter migration on examining insertion site since placement. (Placement was confirmed in [facility] by fluoro) Code Status Full Discussed Condition With Lucille Vicente and Nate Problem Qualifiers (1) STEMI (ST elevation myocardial infarction): Qualified Codes: I21.3 - ST elevation (STEMI) myocardial infarction of unspecified site Melissa Casillas MD Dec 31, 2017 13:07
[2017-12-31] MEDS ORDERED: POTASSIUM PHOSPHATE INJ 30 MMOL in SODIUM CHLOR 0.9% 250 ML INJ 250 ML IV PRN (13:15)
[2017-12-31] MEDS ORDERED: MAGNESIUM SULFATE INJ 2 GM in SODIUM CHLORIDE 0.9% INJ 96 ML IV PRN (13:15)
[2017-12-31] MEDS ORDERED: POTASSIUM CHLOR 20 MEQ PREMIX 100 ML IV PRN (13:15)
[2017-12-31] MEDS ORDERED: POTASSIUM PHOSPHATE MONOBASIC 500 MG TAB PO PRN (13:15)
[2017-12-31] MEDS ORDERED: MAGNESIUM OXIDE 400 MG TAB PO PRN (13:15)
[2017-12-31] MEDS ORDERED: POTASSIUM CHLORIDE 25 MEQ EFFERVESCENT TAB PO PRN (13:15)
[2017-12-31] MEDS ORDERED: MAGNESIUM SULFATE INJ 4 GM in SODIUM CHLORIDE 0.9% INJ 92 ML IV PRN (13:15)
[2017-12-31] MEDS ORDERED: POTASSIUM PHOSPHATE MONOBASIC 500 MG TAB PO/TUBE PRN (13:15)
[2017-12-31] MEDS ORDERED: POTASSIUM CHLOR 40 MEQ PREMIX 100 ML IV PRN ×3 (13:15→18:45)
[2017-12-31] MEDS ORDERED: SODIUM PHOSPHATE INJ 30 MMOL in SODIUM CHLOR 0.9% 250 ML INJ 240 ML IV PRN (13:15)
[2017-12-31] MEDS ORDERED: AMIODARONE INJ 150 MG in DEXTROSE 5% IN WATER 100ML INJ 100 ML IV ONE ×4 (13:19→18:00)
[2017-12-31] MEDS: MUPIROCIN 2% OINT 1 APPLIC/GM SYR EACH NARE SCH ×2 (13:30→21:00)
[2017-12-31] MEDS ORDERED: CHLORHEXIDINE GLUCONATE 4% SOLN 120 ML BTL TOPICAL SCH (13:30)
[2017-12-31] MEDS ORDERED: PAPAVERINE INJ 60 MG, NITROGLYCERIN INJ 100 MCG, DILTIAZEM INJ 100 MG in SODIUM CHLORID... IRRIGATION SCH (13:30)
[2017-12-31] MEDS ORDERED: INSULIN REGULAR (IV INFUSION) 100 UNITS in SODIUM CHLORIDE 0.9% INJ 99 ML IV PRN (13:30)
[2017-12-31] MEDS ORDERED: CEFAZOLIN INJ 500 MG in SODIUM CHLORIDE 0.9% IRR BTL 500 ML IRRIGATION SCH (13:30)
[2017-12-31] MEDS ORDERED: ceFAZolin 2 GM PREMIX 50 ML IV SCH (13:30)
[2017-12-31] MEDS ORDERED: CARVEDILOL 3.125 MG TAB PO SCH ×2 (13:30→21:00)
[2017-12-31] MEDS ORDERED: DEXTROSE 50% IN WATER 50 ML VIAL(D50) IV PUSH PRN (13:30)
--- NOTE | 2017-12-31 13:47 | PD.CONS ---
History of Present Illness Service CT Surgery Consult Requested By Dr. 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 He was noted to have ST elevation on ECG and a STEMI alert was called. He was taken to the garden labourer and found to have 3 vessel CAD with RCA and LAD occlusion , ~80% proximal LCx lesion and EF ~35%. The LAD was emergently stented, the patient was loaded with Effient, and an IABP pump was placed. He had ventricular fibrillation in the garden labourer and was defibrillated after 2 shocks. He has ruled-in for STEMI by ECG and troponin. He is being evaluated for CABG. He denies any cardiac history or other health issues. Review of Systems Constitutional: COMPLAINS OF: Diaphoretic episodes, DENIES: Fatigue, Fever, Weight gain, Weight loss, Chills, Dizziness, Change in appetite, Night Sweats Endocrine: DENIES: Heat/cold intolerance, Polydipsia, Polyuria, Polyphagia Eyes: DENIES: Blurred vision, Diplopia, Eye inflammation, Eye pain, Vision loss , Photosensitivity, Double Vision Ears, nose, mouth, throat: DENIES: Tinnitus, Hearing loss, Vertigo, Nasal discharge, Oral lesions, Throat pain, Hoarseness, Ear Pain, Running Nose, Epistaxis, Sinus Pain, Toothache, Odynophagia Respiratory: DENIES: Apneas, Cough, Snoring, Wheezing, Hemoptysis, Sputum production, Shortness of breath Cardiovascular: COMPLAINS OF: Chest pain, DENIES: Palpitations, Syncope, Dyspnea on Exertion, PND, Lower Extremity Edema, Orthopnea, Claudication Gastrointestinal: COMPLAINS OF: Nausea, DENIES: Abdominal pain, Black stools, Bloody stools, Constipation, Diarrhea, Vomiting, Difficulty Swallowing, Anorexia Genitourinary: DENIES: Sexual dysfunction, Urinary frequency, Urinary incontinence, Urgency, Hematuria, Dysuria, Nocturia, Penile Discharge, Testicular Pain, Testicular Swelling Musculoskeletal: DENIES: Joint pain, Muscle aches, Stiffness, Joint Swelling, Back pain, Neck pain Integumentary: DENIES: Abnormal pigmentation, Nail changes, Pruritus, Rash Hematologic/lymphatic: DENIES: Bruising, Lymphadenopathy Immunologic/allergic: DENIES: Eczema, Urticaria Neurologic: DENIES: Abnormal gait, Headache, Localized weakness, Paresthesias, Seizures, Speech Problems, Tremor, Poor Balance Psychiatric: DENIES: Anxiety, Confusion, Mood changes, Depression, Hallucinations, Agitation, Suicidal Ideation, Homicidal Ideation, Delusions Past Family Social History Allergies: Coded Allergies: No Known Allergies (Unverified , 12/31/17) Past Medical History HTN Past Surgical History s/p cholecystectomy 3 yrs go Bilateral hip replacements with an additional revision Reported Medications Cialis Aspirin Active Ordered Medications Current Medications Medications (Trade) Dose Ordered Sig/Pascual Route Start Time Stop Time Status Last Admin (NS Flush) 2 ml UNSCH PRN IVF 12/31/17 10:45 12/31/17 10:48 (NS Flush) 2 ml UNSCH PRN IV FLUSH 12/31/17 12:30 (NS Flush) 2 ml BID IV FLUSH 12/31/17 21:00 (Aspirin Chew) 162 mg DAILY PO 01/01/18 09:00 (Effient) 10 mg DAILY PO 01/01/18 09:00 Tirofiban/Sodium Chloride 250 ml @ 19.8 mls/hr [id number] IV 12/31/17 12:20 01/01/18 06:19 (Lipitor) 40 mg HS PO 12/31/17 21:00 Potassium Chloride 100 ml @ 50 mls/hr Q2H PRN IV 12/31/17 13:15 UNV Potassium Chloride 100 ml @ 50 mls/hr Q2H PRN IV 12/31/17 13:15 UNV (K-Lyte Cl Eff) 50 meq UNSCH PRN PO 12/31/17 13:15 UNV Potassium Chloride 100 ml @ 25 mls/hr UNSCH PRN IV 12/31/17 13:15 UNV Potassium Chloride 100 ml @ 50 mls/hr Q2H PRN IV 12/31/17 13:15 UNV Magnesium Sulfate 4 gm/Sodium Chloride 100 ml @ 50 mls/hr UNSCH PRN IV 12/31/17 13:15 UNV (Mag-Ox) 800 mg UNSCH PRN PO 12/31/17 13:15 UNV Magnesium Sulfate 2 gm/Sodium Chloride 100 ml @ 50 mls/hr UNSCH PRN IV 12/31/17 13:15 UNV (K-Phos) 2,000 mg Q4H PRN PO 12/31/17 13:15 UNV Sodium Phosphate 30 mmol/Sodium Chloride 250 ml @ 42 mls/hr UNSCH PRN IV 12/31/17 13:15 UNV (K-Phos) 2,000 mg UNSCH PRN PO/TUBE 12/31/17 13:15 UNV Potassium Phosphate 30 mmol/ Sodium Chloride 260 ml @ 42 mls/hr UNSCH PRN IV 12/31/17 13:15 UNV (Pepcid Inj) 20 mg Q12H IV PUSH 12/31/17 13:15 UNV Family History Denies cardiac disease, cancer Social History Tobacco abuse ~40yrs ago 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 SKIN: No rashes, ecchymoses or lesions. Cool and dry. HEAD: Atraumatic. Normocephalic. No temporal or scalp tenderness. EYES: Pupils equal round and reactive. Extraocular motions intact. No scleral icterus. No injection or drainage. ENT: Nose without bleeding, purulent drainage or septal hematoma. Throat without erythema, tonsillar hypertrophy or exudate. Uvula midline. Airway patent. NECK: Trachea midline. No JVD or lymphadenopathy. Supple, nontender, no meningeal signs. CARDIOVASCULAR: Regular rate and rhythm without murmurs, gallops, or rubs. RESPIRATORY: Clear to auscultation. Breath sounds equal bilaterally. No wheezes , rales, or rhonchi. GASTROINTESTINAL: Abdomen soft, non-tender, nondistended. No hepato-splenomegaly , or palpable masses. No guarding. MUSCULOSKELETAL: Extremities without clubbing, cyanosis, or edema. No joint tenderness, effusion, or edema noted. No calf tenderness. Negative Homans sign bilaterally. NEUROLOGICAL: Awake and alert. Cranial nerves II through XII intact. Motor and sensory grossly within normal limits. Five out of 5 muscle strength in all muscle groups. Normal speech. Laboratory Laboratory Tests Test 12/31/17 10:45 White Blood Count 9.0 Red Blood Count 5.24 Hemoglobin 16.2 Bedside Hemoglobin 15.3 Hematocrit 45.5 Bedside Hematocrit 45.0 Mean Corpuscular Volume 86.7 Mean Corpuscular Hemoglobin 30.8 Mean Corpuscular Hemoglobin Concent 35.5 Red Cell Distribution Width 13.6 Platelet Count 242 Mean Platelet Volume 8.2 Neutrophils (%) (Auto) 71.6 Lymphocytes (%) (Auto) 18.9 Monocytes (%) (Auto) 8.5 Eosinophils (%) (Auto) 0.5 Basophils (%) (Auto) 0.5 Neutrophils # (Auto) 6.5 Lymphocytes # (Auto) 1.7 Monocytes # (Auto) 0.8 Eosinophils # (Auto) 0.0 Basophils # (Auto) 0.0 CBC Comment DIFF FINAL Differential Comment Prothrombin Time 10.0 Prothromb Time International Ratio 1.0 Activated Partial Thromboplast Time 23.8 Bedside Sodium 142 Bedside Potassium 3.8 Bedside Chloride 106 Bedside Blood Urea Nitrogen 27 Bedside Creatinine 1.2 Bedside Glucose 129 Calcium Level 9.3 Magnesium Level 2.1 Total Creatine Kinase 124 Creatine Kinase MB 2.8 Troponin I 0.24 B-Type Natriuretic Peptide 38 Result Diagram: 12/31/17 1045 Imaging Last Impressions Chest X-Ray 12/31/17 1042 Signed Impressions: CONCLUSION: No acute cardiopulmonary abnormality is identified. Course Patient admitted to CVICU with IABP 1:1. Denies chest pain or discomfort. Assessment and Plan Problem List: (1) STEMI (ST elevation myocardial infarction) ICD Codes: I21.3 - ST elevation (STEMI) myocardial infarction of unspecified site Status: Acute (2) Ischemic cardiomyopathy ICD Codes: I25.5 - Ischemic cardiomyopathy (3) On intra-aortic balloon pump assist ICD Codes: Z98.890 - Other specified postprocedural states (4) Multi-vessel coronary artery stenosis ICD Codes: I25.10 - Atherosclerotic heart disease of [place] coronary artery without angina pectoris (5) Ventricular fibrillation ICD Codes: I49.01 - Ventricular fibrillation Assessment and Plan 67y/o male presents with STEMI. LAD was the culprit vessel and was stented. IABP in place and he is stable. Coreg and amiodarone started. Will also start a statin now. He was loaded with Effient in the garden labourer. CABG recommended. Risks and benefits discussed with him and he agrees to proceed. STS as follows: Risk Model and Variables - STS Adult Cardiac Surgery Database Version 2.81 RISK SCORES About the STS Risk Calculator Procedure: CAB Only Risk of Mortality: 1.341% Morbidity or Mortality: 21.767% Long Length of Stay: 5.898% Short Length of Stay: 38.376% Permanent Stroke: 0.864% Prolonged Ventilation: 16.851% DSW Infection: 0.375% Problem Qualifiers (1) STEMI (ST elevation myocardial infarction): Qualified Codes: I21.3 - ST elevation (STEMI) myocardial infarction of unspecified site Jennifer Rees MD Dec 31, 2017 13:47
[2017-12-31] MEDS ORDERED: MORPHINE SULFATE 4 MG/ML INJ SQ PRN (14:00)
--- NOTE | 2017-12-31 14:30 | RADRPT ---
EXAM DATE: 12/31/2017 2:17 PM EDT AGE/SEX: 67 years / Male INDICATIONS: Balloon pump Placement. Chest pain. CLINICAL DATA: This is the patient's subsequent encounter. Patient reports that signs and symptoms h ave been present for 1 day and indicates a pain score of 0/10. MEDICAL/SURGICAL HISTORY: None. None. COMPARISON: [facility] [place], CHEST SINGLE AP, 12/31/2017. . FINDINGS: A single AP view of the chest demonstrates the lungs to be symmetrically aerated without evidence of mass, infiltrate or effusion. The cardiomediastinal contours are unremarkable. Osseous structures a re intact. CONCLUSION: No acute cardiopulmonary process. Electronically signed by: Vinny Daniel MD 12/31/2017 2:29 PM EDT
[2017-12-31 14:40] LABS: MAGNESIUM 1.9 MG/DL (1.5-2.5); PHOSPHORUS 2.2 MG/DL (2.5-4.9)
[2017-12-31 14:42] LABS: CHOLESTEROL/ HDL RATIO 4.16 RATIO; HDL CHOLESTEROL 41.5 MG/DL (40.0-60.0)
[2017-12-31 14:43] LABS: ALBUMIN 3.2 GM/DL (3.4-5.0); AST (GOT) 52 U/L (15-37); BICARBONATE 21.4 MEQ/L (21.0-32.0); BLOOD UREA NITROGEN 21 MG/DL (7-18); CALCIUM 8.3 MG/DL (8.5-10.1); CHLORIDE 112 MEQ/L (98-107); CREATININE 0.93 MG/DL (0.60-1.30); GLOMERULAR FILTRATION RATE 81 ML/MIN (>89); GLUCOSE,RANDOM 123 MG/DL (74-106); SODIUM (NA) 142 MEQ/L (136-145)
[2017-12-31 14:54] LABS: ALKALINE PHOSPHATASE 74 U/L (45-117); ALT (GPT) 28 U/L (12-78); TOTAL BILIRUBIN ADULT 0.6 MG/DL (0.2-1.0); TOTAL PROTEIN 6.3 GM/DL (6.4-8.2)
[2017-12-31 15:00] VITALS: BP_SYST 119; BP_SYST 94; BP_DIAS 59; BP_DIAS 66; PULSE 77; PULSE 85; RESP 16; TEMP 98; O2SAT 97
[2017-12-31] MEDS ORDERED: METOPROLOL TARTRATE 5 MG/5 ML VIAL IV PUSH ONE (15:00)
[2017-12-31] MEDS ORDERED: METOPROLOL TARTRATE 5 MG/5 ML VIAL ONE (15:03)
[2017-12-31] MEDS ORDERED: PAPAVERINE INJ 60 MG, NITROGLYCERIN INJ 100 MCG, VERAPAMIL INJ 100 MG in SODIUM CHLORID... IRRIGATION SCH (15:30)
--- NOTE | 2017-12-31 15:54 | RADRPT ---
EXAM DATE: 12/31/2017 3:39 PM EDT AGE/SEX: 67 years / Male INDICATIONS: KUB CLINICAL DATA: This is the patient's initial encounter. Patient reports that signs and symptoms have been present for 1 day and indicates a pain score of 0/10. MEDICAL/SURGICAL HISTORY: None. . Balloon pump insertion COMPARISON: No prior exams available for comparison. FINDINGS: The abdominal bowel gas pattern is normal. No abnormal masses, calcifications, or organomegaly is s een. There is a left femoral catheter present. The tip of a balloon catheter is thought to be project ing over the L2 vertebral body. Clips are seen in the right upper quadrant. Bilateral hip prostheses are present. CONCLUSION: It appears the tip of the aortic balloon pump is projecting over the left aspect of the L2 vertebral body. This would be in the mid abdominal aorta. Electronically signed by: Vinny Daniel MD 12/31/2017 3:53 PM EDT
[2017-12-31] MEDS ORDERED: MAGNESIUM SULFATE 1 GM PREMIX 100 ML IV ONE ×2 (16:00→18:45)
[2017-12-31] MEDS: FAMOTIDINE 20 MG/2 ML VIAL IV PUSH SCH ×2 (16:11→21:10)
[2017-12-31 16:32] LABS: BACTERIA, URINE OCC /hpf; BILIRUBIN, URINE NEG (NEG); BLOOD, URINE LARGE (NEG); GLUCOSE,URINE NEG (NEG); KETONE, URINE NEG (NEG); NITRITE,URINE NEG (NEG); URINE COLOR Red (YELLW/STRAW); URINE LEUKOCYTE ESTERASE NEG (NEG)
[2017-12-31] MEDS ORDERED: HEPARIN SODIUM - IV 10,000 UNITS/10 ML VIAL IV PUSH PRN (17:00)
[2017-12-31 17:03] LABS: HEMOGLOBIN A1C 5.6 % (4.3-6.0)
[2017-12-31] MEDS: HEPARIN 25,000 UNITS-D5W 250 ML - PREMIX IV PRN (17:07)
[2017-12-31] MEDS ORDERED: IOHEXOL 350 MG/ML 50 ML BTL (for Cath Lab) OTHER ONE (17:27)
[2017-12-31] MEDS ORDERED: IOHEXOL 350 MG/ML 100 ML BTL (for Cath Lab) OTHER ONE (17:27)
--- NOTE | 2017-12-31 17:47 | RADRPT ---
EXAM DATE: 12/31/2017 5:33 PM EDT AGE/SEX: 67 years / Male INDICATIONS: Pre op cardiac surgery. CLINICAL DATA: This is the patient's initial encounter. Patient reports that signs and symptoms have been present for 1 day and indicates a pain score of 0/10. MEDICAL/SURGICAL HISTORY: . VFib. Myocardial infarction. Coronary artery disease. Cholecystect gris. Bilateral hip replacement. Cardiac catheterization. COMPARISON: No prior exams available for comparison. VELOCITY PARAMETERS: ICA/CCA Ratio: Right 0.91 , Left 0.73 ICA: Right 99 cm/sec, Left 86 cm/sec CCA: Right 108 cm/sec, Left 117 cm/sec ECA: Right 109 cm/sec, Left 119 cm/sec Vertebral: Right 35 cm/sec antegrade, Left 45 cm/sec antegrade FINDINGS: Right Carotid: Minimal nonshadowing plaque in the common carotid artery and bulb.The waveforms are w ithin normal limits. Left Carotid: No significant plaque is visualized. The waveforms are within normal limits. Other: None. CONCLUSION: 1. Right Internal Carotid Artery: Findings indicate <50% stenosis. 2. Left Internal Carotid Artery: Findings indicate <50% stenosis. Electronically signed by: Aamir Mohan MD 12/31/2017 5:46 PM EDT
[2017-12-31] MEDS ORDERED: METOPROLOL TARTRATE 5 MG/5 ML VIAL IV PUSH PRN (18:00)
[2017-12-31] MEDS ORDERED: AMIODARONE INJ 450 MG in DEXTROSE 5% IN WATE(EXCEL) INJ 241 ML IV PRN ×2 (18:02)
--- NOTE | 2017-12-31 18:12 | EKG ---
Date Performed: 12/31/2017 Time Performed: 10:40:38 PTAGE: 67 years EKG: Sinus rhythm WITH MARKED SINUS ARRHYTHMIA LOW QRS VOLTAGE IN PRECORDIAL LEADS POSSIBLE RIGHT VENTRICULAR CONDUCTI ON DELAY INFERIOR MYOCARDIAL INFARCTION ANTEROLATERAL MYOCARDIAL INFARCTION ST ELEVATION, CONSIDER SE PTAL INJURY ACUTE MT PREVIOUS TRACING : 08/10/2001 08.00 When compared to the prior EKG,patient now appears to be having an acute ST elevation MT Clinical correlation is recommended DOCTOR: Britany Keenan Interpretating Date/Time 12/31/2017 18:10:36
[2017-12-31 18:19] LABS: AUTOMATED NEUTROPHIL # 7.4 TH/MM3 (1.8-7.7); BASOPHIL % 0.5 % (0.0-2.0); EOSINOPHIL % 0.3 % (0.0-4.0); HEMATOCRIT 41.6 % (39.0-51.0); HEMOGLOBIN 14.2 GM/DL (13.0-17.0); LYMPH % 18.4 % (9.0-44.0); LYMPHOCYTE # 1.9 TH/MM3 (1.0-4.8); MEAN CELL VOLUME 88.2 FL (80.0-100.0); MEAN CORPUSCULAR HEMOGLOBIN 30.1 PG (27.0-34.0); MEAN CORPUSCULAR HGB CONC 34.2 % (32.0-36.0); MEAN PLATELET VOLUME 8.4 FL (7.0-11.0); MONO % 8.7 % (0.0-8.0); MONOCYTE # 0.9 TH/MM3 (0-0.9); NEUT % 72.1 % (16.0-70.0); PLATELET COUNT 256 TH/MM3 (150-450); RED BLOOD COUNT 4.71 MIL/MM3 (4.50-5.90); RED CELL DISTRIBUTION WIDTH 13.4 % (11.6-17.2); WHITE BLOOD COUNT 10.3 TH/MM3 (4.0-11.0)
[2017-12-31] MEDS: NS + KCL 40 MEQ INJ 1,000 ML IV SCH (18:25)
[2017-12-31 18:29] LABS: INTERNATIONAL NORMALIZED RATIO 1.1 RATIO; PROTHROMBIN TIME - PATIENT 10.8 SEC (9.8-11.6)
[2017-12-31 19:00] VITALS: PULSE 78
[2017-12-31 19:04] LABS: ALBUMIN 3.2 GM/DL (3.4-5.0); ALKALINE PHOSPHATASE 73 U/L (45-117); ALT (GPT) 34 U/L (12-78); AST (GOT) 116 U/L (15-37); BICARBONATE 20.8 MEQ/L (21.0-32.0); BLOOD UREA NITROGEN 16 MG/DL (7-18); CALCIUM 8.2 MG/DL (8.5-10.1); CHLORIDE 111 MEQ/L (98-107); CREATININE 0.77 MG/DL (0.60-1.30); GLOMERULAR FILTRATION RATE 101 ML/MIN (>89); GLUCOSE,RANDOM 119 MG/DL (74-106); SODIUM (NA) 143 MEQ/L (136-145); TOTAL BILIRUBIN ADULT 0.7 MG/DL (0.2-1.0); TOTAL PROTEIN 6.2 GM/DL (6.4-8.2)
[2017-12-31 20:00] VITALS: BP_SYST 102; BP_SYST 119; BP_DIAS 65; BP_DIAS 71; PULSE 76; RESP 16; TEMP 97.7; O2SAT 97
[2017-12-31] MEDS ORDERED: ATORVASTATIN 10 MG TAB PO SCH (21:00)
[2017-12-31] MEDS: AMIODARONE 200 MG TAB PO SCH (21:00)
[2017-12-31] MEDS ORDERED: SODIUM CHLORIDE 0.9% FLUSH 10 ML FLUSH IV FLUSH SCH (21:00)
[2017-12-31] MEDS: HEPARIN SODIUM - IV 10,000 UNITS/10 ML VIAL IV PUSH PRN (21:07)
[2017-12-31] MEDS: ATORVASTATIN 40 MG TAB PO SCH (21:09)
[2017-12-31] MEDS: SODIUM CHLORIDE 0.9% FLUSH 10 ML FLUSH IV FLUSH SCH (21:10)
[2017-12-31 23:00] VITALS: PULSE 69
[2018-01-01] VITALS (8 sets, daily range): BP systolic 82–120; BP diastolic 51–85; PULSE 72–79; RESP 12–18; TEMP 97.7–99.7; O2SAT 95–98
[2018-01-01] MEDS: TIROFIBAN INFUSION INJ 250 ML IV SCH ×2 (01:23→04:23)
[2018-01-01 04:40] LABS: BASOPHIL % 0.3 % (0.0-2.0); EOSINOPHIL # 0.1 TH/MM3 (0-0.4); EOSINOPHIL % 0.9 % (0.0-4.0); HEMATOCRIT 40.3 % (39.0-51.0); LYMPH % 17.2 % (9.0-44.0); LYMPHOCYTE # 1.4 TH/MM3 (1.0-4.8); MEAN CELL VOLUME 87.9 FL (80.0-100.0); MEAN CORPUSCULAR HEMOGLOBIN 30.6 PG (27.0-34.0); MEAN CORPUSCULAR HGB CONC 34.8 % (32.0-36.0); MEAN PLATELET VOLUME 8.8 FL (7.0-11.0); MONO % 8.7 % (0.0-8.0); MONOCYTE # 0.7 TH/MM3 (0-0.9); NEUT % 72.9 % (16.0-70.0); PLATELET COUNT 228 TH/MM3 (150-450); RED BLOOD COUNT 4.58 MIL/MM3 (4.50-5.90); RED CELL DISTRIBUTION WIDTH 13.6 % (11.6-17.2); WHITE BLOOD COUNT 8.3 TH/MM3 (4.0-11.0)
[2018-01-01 05:21] LABS: ALBUMIN 3.1 GM/DL (3.4-5.0); BICARBONATE 23.2 MEQ/L (21.0-32.0); CREATININE 0.82 MG/DL (0.60-1.30); MAGNESIUM 2.2 MG/DL (1.5-2.5)
[2018-01-01 05:36] LABS: CHOLESTEROL/ HDL RATIO 3.69 RATIO; DIRECT BILIRUBIN ADULT 0.2 MG/DL (0.0-0.2); HDL CHOLESTEROL 41.1 MG/DL (40.0-60.0); INDIRECT BILIRUBIN 0.5 MG/DL (0.0-0.8); TOTAL BILIRUBIN ADULT 0.7 MG/DL (0.2-1.0); TOTAL PROTEIN 5.9 GM/DL (6.4-8.2)
--- NOTE | 2018-01-01 07:15 | HHI.CCPN ---
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 Apparently he rode bike 5 miles back to the car and presented to the emergency department. Stat EKG showed anterolateral ST elevations and a STEMI alert was called. He was given aspirin and was emergently taken to the slab grinder. He has no previous history of coronary artery disease or any other significant coronary artery risk factors other than age and sex. Cardiac catheterization by Dr. Sullivan showed occluded mid left anterior descending to be the culprit lesion, a bare-metal stent was placed. Patient was also found to have three-vessel coronary artery disease and ischemic cardiomyopathy with EF 25-30% with severe hypokinesis to akinesis of the inferoapical and distal anteroapical wall. Patient was continued on IV heparin, Aggrastat was started IV. Patient was also loaded with Effient. Dr. Sullivan placed IABP after PCI and stent. CT surgery was consulted for three-vessel coronary artery disease for CABG evaluation. I evaluated the patient in the ICU. He is lying on bed denies any chest pain at this time, mildly anxious. IABP in place without hematoma at the insertion site-intermittently augmenting well. Cardiac catheterization site at right groin also without any hematoma. According to Dr. Sullivan patient had reperfusion arrhythmia/ventricular fibrillation in slab grinder which needed cardioversion x2. Will start on IV amiodarone per Dr. Vicente. I will also add carvedilol 3.125 mg twice daily, and Lipitor SUBJ 01/01: Currently appears comfortable, no further sustained VTAC, minimal PVCs, and paroxysmal a fib. IABP with good augmentation. Remains on IV Heparin. IV Aggrastat, and IV Amiodarone. Objective Vital Signs Date Time Temp Pulse Resp B/P (MAP) Pulse Ox O2 Delivery O2 Flow Rate FiO2 01/01/18 04:00 99.1 73 16 82/85 (84) 96 104/51 (68) 01/01/18 03:25 Room Air 12/31/17 10:45 2.00 Intake and Output 01/01/18 01/01/18 01/02/18 08:00 16:00 00:00 Intake Total 500 ml Balance 500 ml Result Diagram: 01/01/18 0337 01/01/18 0337 Imaging Chest x-ray shows no acute finding Objective Remarks GENERAL: Awake and alert, in mild distress. Denies chest pain at this time, appears comfortable SKIN: Warm/dry. HEAD: Atraumatic. Normocephalic. EYES: Pupils equal and round. No scleral icterus. ENT: Mucous membranes. NECK: Trachea midline. No JVD. CARDIOVASCULAR: Regular rate and rhythm. No murmur appreciated, but exam limited by conducted IABP sounds. Intermittently augmenting well RESPIRATORY: No accessory muscle use. Clear to auscultation. Breath sounds equal bilaterally. GASTROINTESTINAL: Abdomen soft, non-tender, nondistended. MUSCULOSKELETAL: Right groin cath site without hematoma. Left groin IABP incision site without hematoma. Peripheral pulses are palpable NEUROLOGICAL: Awake and alert. No obvious cranial nerve deficits. Motor grossly within normal limits. Normal speech. A/P Assessment and Plan NEURO: -As needed morphine for pain RESP: -Nasal cannula oxygen, if needed to keep sats above 92% -Aggressive pulmonary toilet CV: Acute STEMI Ischemic cardiomyopathy Reperfusion arrhythmia/ventricular fibrillation Multivessel coronary artery disease -Patient is status post cardiac catheterization and BMS to the LAD (cath showed 3 vessel CAD with RCA and LAD occlusion, EF 30%) -CABG in next 2-3 days, per Dr. Vicente -Continue aspirin daily -Post PCI/stent placed on Effient, placed on hol by CTS -Complete IV Aggrastat, continue IV heparin -IABP with one-to-one augmentation-wean per cardiology and CT surgery -Received 300 mg loading dose of amiodarone IV GTT. Resume p.o. amiodarone 400 mg p.o. twice daily and wean to DC IV -Carvedilol 3.125 mg every 12 -Lipitor started by cardiology will increase to 40 mg nightly, check lipid profile -2D echo today -Dr. Vicente consulted for possible CABG GI: -Diet when cleared by Dr. Sullivan -IV famotidine for GI prophylaxis : -Monitor renal function closely. Place Tillman/condom catheter while IABP in place ID: -Periprocedural antibiotics per cardiology HEME: -Monitor CBC, CMP, coags ENDO: -Electrolyte replacement per protocol PROPH: -IV heparin, IV famotidine LINES: -Utilize peripheral IVs, central line if needed Level 3 Patient remains critically ill but stable. Arrhythmias are better controlled. Await CABG in the next 2-3 days. Continue IABP deferred to CT surgery and cardiology Melissa Casillas MD Jan 01, 2018 07:15
--- NOTE | 2018-01-01 07:15 | RADRPT ---
EXAM DATE: 01/01/2018 6:29 AM EDT AGE/SEX: 67 years / Male INDICATIONS: Balloon pump placement. Respiratory status. CLINICAL DATA: This is the patient's subsequent encounter. Patient reports that signs and symptoms h ave been present for 3 days and indicates a pain score of 5/10. MEDICAL/SURGICAL HISTORY: None. None. COMPARISON: [facility] [place]ST SING[place] AP, 12/31/2017. . FINDINGS: 2 supine frontal views of the chest demonstrate a normal-sized cardiac silhouette. Multiple EKG lines overlie the patient. No pleural effusion, airspace consolidation, or pneumothorax is identified. The right lateral inferior lung is not completely imaged. Bones and soft tissues demonstrate no acute fi nding. CONCLUSION: No acute cardiopulmonary abnormality is identified for technique. Electronically signed by: Vinny Hensley MD 01/01/2018 7:14 AM EDT
[2018-01-01] MEDS: NS + KCL 40 MEQ INJ 1,000 ML IV SCH ×2 (07:24→17:38)
[2018-01-01] MEDS: POTASSIUM CHLOR 20 MEQ PREMIX 100 ML IV PRN ×2 (07:25→09:28)
[2018-01-01] MEDS ORDERED: PRASUGREL 10 MG TAB PO SCH (09:00)
--- NOTE | 2018-01-01 09:19 | EKG ---
Date Performed: 12/31/2017 Time Performed: 18:13:46 PTAGE: 67 years EKG: Sinus rhythm . Left axis deviation Inferior infarct - age undetermined Low QRS voltages in precordial leads Abnorm al ECG Since the PREVIOUS TRACING , no significant change noted PREVIOUS TRACING DOCTOR: Jason Nicole Interpretating Date/Time 01/01/2018 09:14:46
[2018-01-01] MEDS: FAMOTIDINE 20 MG/2 ML VIAL IV PUSH SCH ×2 (09:28→21:02)
[2018-01-01] MEDS: SODIUM CHLORIDE 0.9% FLUSH 10 ML FLUSH IV FLUSH SCH ×2 (09:28→21:00)
[2018-01-01] MEDS: AMIODARONE 200 MG TAB PO SCH ×2 (09:29→21:02)
[2018-01-01] MEDS: ASPIRIN 81 MG CHEW TAB PO SCH (09:29)
[2018-01-01] MEDS: CARVEDILOL 3.125 MG TAB PO SCH ×2 (09:29→21:02)
[2018-01-01] MEDS: MUPIROCIN 2% OINT 1 APPLIC/GM SYR EACH NARE SCH ×2 (09:30→21:00)
--- NOTE | 2018-01-01 09:33 | RADRPT ---
EXAM DATE: 12/31/2017 9:20 PM EDT AGE/SEX: 67 years / Male INDICATIONS: Pre op cardiac surgery. CLINICAL DATA: This is the patient's initial encounter. Patient reports that signs and symptoms have been present for 1 day and indicates a pain score of 0/10. MEDICAL/SURGICAL HISTORY: . Vfib. Myocardial infarction. Coronary artery disease. Cholecystect gris. Bilateral hip replacement. Cardiac catheterization. COMPARISON: No prior exams available for comparison. TECHNIQUE: Venous ultrasound of both lower extremities was performed from the inguinal ligament to t he proximal calf. Real-time, color Doppler and spectral tracing, compression and augmentation techni ques were used. FINDINGS: There is good visualization of the deep venous system. There is no thrombosis. There is go od augmentable flow. CONCLUSION: 1. Negative for deep venous thrombosis right leg. Electronically signed by: Julio Robin MD 01/01/2018 9:31 AM EDT
--- NOTE | 2018-01-01 09:53 | EKG ---
Date Performed: 12/31/2017 Time Performed: 14:27:30 PTAGE: 67 years EKG: Sinus rhythm . Left axis deviation Inferior infarct - age undetermined Low QRS voltages in precordial leads Abnorm al ECG PREVIOUS TRACING 12/31/17 Compared to the prior study, marked ST elevation in the anterior lead s has significantly improved, suggesting reperfusion. DOCTOR: Jason Nicole Interpretating Date/Time 01/01/2018 09:53:21
--- NOTE | 2018-01-01 12:45 | EKG ---
Date Performed: 01/01/2018 Time Performed: 07:20:46 PTAGE: 67 years EKG: Sinus rhythm . Inferior infarct - age undetermined Anterolateral T wave changes may be due to myocardial ischemia Abnormal ECG Since the PREVIOUS TRACING , no significant change noted PREVIOUS TRACIN12/31/2017 18.13 DOCTOR: Jason Nicole Interpretating Date/Time 01/01/2018 12:42:24
--- NOTE | 2018-01-01 12:52 | PD.CAR.PN ---
CVT Progress Note Subjective/Hospital Course: 01/01/18 Stable. Denies chest pain and ectopy has resolved with amiodarone. ECHO - pending Objective: Vital Signs Date Time Temp Pulse Resp B/P (MAP) Pulse Ox O2 Delivery O2 Flow Rate FiO2 01/01/18 12:00 01/01/18 11:00 96/62 (86) 01/01/18 11:00 99.3 73 18 108/60 (76) 98 01/01/18 11:00 77 01/01/18 11:00 99 Room Air 01/01/18 10:00 01/01/18 09:00 01/01/18 08:00 01/01/18 07:00 99/65 (90) 01/01/18 07:00 98.4 76 18 114/58 (76) 95 01/01/18 07:00 79 01/01/18 07:00 99 Room Air 01/01/18 06:00 94/50 (61) 01/01/18 05:00 88/59 (87) 01/01/18 04:00 99.1 73 16 82/85 (84) 96 104/51 (68) 01/01/18 04:00 91/55 (84) 01/01/18 03:25 97 Room Air 01/01/18 03:00 82/52 (77) 01/01/18 03:00 72 01/01/18 02:00 90/65 (87) 01/01/18 01:00 84/59 (86) 01/01/18 00:00 92/66 (85) 01/01/18 00:00 97.7 76 16 93/70 (78) 97 109/69 (82) 12/31/17 23:01 96 Room Air 12/31/17 23:00 93/70 (81) 12/31/17 23:00 69 12/31/17 22:00 88/56 (77) 12/31/17 21:00 86/55 (84) 12/31/17 20:00 102/65 (90) 12/31/17 20:00 97.7 76 16 102/65 (77) 97 119/71 (87) 12/31/17 20:00 95 Room Air 12/31/17 19:00 78 12/31/17 18:50 83 124/77 12/31/17 18:23 82 140/84 12/31/17 18:00 116/87 (104) 12/31/17 17:00 102/66 (89) 12/31/17 16:00 95/52 (66) 12/31/17 15:00 98.0 77 16 94/59 (71) 97 119/66 (83) 12/31/17 15:00 95 Room Air 12/31/17 15:00 94/59 (83) 12/31/17 15:00 85 12/31/17 14:57 86 133/73 12/31/17 14:00 111/72 (90) 12/31/17 13:00 108/73 (102) 12/31/17 12:50 131/73 (100) Labs: Laboratory Tests Test 01/01/18 03:37 01/01/18 12:11 White Blood Count 8.3 TH/MM3 (4.0-11.0) Red Blood Count 4.58 MIL/MM3 (4.50-5.90) Hemoglobin 14.0 GM/DL (13.0-17.0) Hematocrit 40.3 % (39.0-51.0) Mean Corpuscular Volume 87.9 FL (80.0-100.0) Mean Corpuscular Hemoglobin 30.6 PG (27.0-34.0) Mean Corpuscular Hemoglobin Concent 34.8 % (32.0-36.0) Red Cell Distribution Width 13.6 % (11.6-17.2) Platelet Count 228 TH/MM3 (150-450) Mean Platelet Volume 8.8 FL (7.0-11.0) Neutrophils (%) (Auto) 72.9 % (16.0-70.0) Lymphocytes (%) (Auto) 17.2 % (9.0-44.0) Monocytes (%) (Auto) 8.7 % (0.0-8.0) Eosinophils (%) (Auto) 0.9 % (0.0-4.0) Basophils (%) (Auto) 0.3 % (0.0-2.0) Neutrophils # (Auto) 6.0 TH/MM3 (1.8-7.7) Lymphocytes # (Auto) 1.4 TH/MM3 (1.0-4.8) Monocytes # (Auto) 0.7 TH/MM3 (0-0.9) Eosinophils # (Auto) 0.1 TH/MM3 (0-0.4) Basophils # (Auto) 0.0 TH/MM3 (0-0.2) CBC Comment DIFF FINAL Differential Comment Activated Partial Thromboplast Time 33.4 SEC (24.3-30.1) Blood Urea Nitrogen 13 MG/DL (7-18) Creatinine 0.82 MG/DL (0.60-1.30) Random Glucose 121 MG/DL (74-106) Total Protein 5.9 GM/DL (6.4-8.2) Albumin 3.1 GM/DL (3.4-5.0) Calcium Level 8.0 MG/DL (8.5-10.1) Magnesium Level 2.2 MG/DL (1.5-2.5) Alkaline Phosphatase 73 U/L (45-117) Aspartate Amino Transf (AST/SGOT) 178 U/L (15-37) Alanine Aminotransferase (ALT/SGPT) 47 U/L (12-78) Total Bilirubin 0.7 MG/DL (0.2-1.0) Direct Bilirubin 0.2 MG/DL (0.0-0.2) Sodium Level 141 MEQ/L (136-145) Potassium Level 4.0 MEQ/L (3.5-5.1) Chloride Level 110 MEQ/L (98-107) Carbon Dioxide Level 23.2 MEQ/L (21.0-32.0) Anion Gap 8 MEQ/L (5-15) Estimat Glomerular Filtration Rate 94 ML/MIN (>89) Indirect Bilirubin 0.5 MG/DL (0.0-0.8) Total Creatine Kinase 1979 U/L (39-308) Creatine Kinase MB 120.8 NG/ML (0.5-3.6) Creatine Kinase MB % 6.1 % (0.0-4.0) B-Type Natriuretic Peptide 277 PG/ML (0-100) Triglycerides Level 79 MG/DL (42-150) Cholesterol Level 152 MG/DL (120-200) LDL Cholesterol 95 MG/DL (0-99) HDL Cholesterol 41.1 MG/DL (40.0-60.0) Cholesterol/HDL Ratio 3.69 RATIO Result Diagram: 01/01/1833601/01/18336 EKG: Stable Q waves inferiorly, resolution of ST elevation in LAD distribution, lateral lead ST depression Imaging: Last 24 hours Impressions Chest X-Ray 01/01/18 0000 Signed Impressions: CONCLUSION: No acute cardiopulmonary abnormality is identified for technique. Cardiovascular: RRR Telemetry: NSR Pulmonary: CTA Plan: Patient is doing better today. Denies chest pain and his rhythm is stable. ECG shows lateral lead ischemia. If his ECHO shows good LV function, recommend CABG early this week. Effient is held for now. Jennifer Rees MD Jan 01, 2018 12:52
[2018-01-01] MEDS: HEPARIN 25,000 UNITS-D5W 250 ML - PREMIX IV PRN (12:56)
[2018-01-01] MEDS: HEPARIN SODIUM - IV 10,000 UNITS/10 ML VIAL IV PUSH PRN (13:24)
--- NOTE | 2018-01-01 15:19 | PD.CARD.PN ---
Subjective Subjective Remarks assymptomatic in nad Objective Medications Current Medications Medications (Trade) Dose Ordered Sig/Pascual Route Start Time Stop Time Status Last Admin (NS Flush) 2 ml UNSCH PRN IV FLUSH 12/31/17 12:30 (NS Flush) 2 ml BID IV FLUSH 12/31/17 21:00 01/01/18 09:28 (Aspirin Chew) 162 mg DAILY PO 01/01/18 09:00 01/01/18 09:29 (Lipitor) 40 mg HS PO 12/31/17 21:00 12/31/17 21:09 Potassium Chloride 100 ml @ 50 mls/hr Q2H PRN IV 12/31/17 13:15 Potassium Chloride 100 ml @ 50 mls/hr Q2H PRN IV 12/31/17 13:15 (K-Lyte Cl Eff) 50 meq UNSCH PRN PO 12/31/17 13:15 Potassium Chloride 100 ml @ 25 mls/hr UNSCH PRN IV 12/31/17 13:15 Potassium Chloride 100 ml @ 50 mls/hr Q2H PRN IV 12/31/17 13:15 01/01/18 09:28 Magnesium Sulfate 4 gm/Sodium Chloride 100 ml @ 50 mls/hr UNSCH PRN IV 12/31/17 13:15 (Mag-Ox) 800 mg UNSCH PRN PO 12/31/17 13:15 Magnesium Sulfate 2 gm/Sodium Chloride 100 ml @ 50 mls/hr UNSCH PRN IV 12/31/17 13:15 12/31/17 19:00 (K-Phos) 2,000 mg Q4H PRN PO 12/31/17 13:15 12/31/17 16:11 Sodium Phosphate 30 mmol/Sodium Chloride 250 ml @ 42 mls/hr UNSCH PRN IV 12/31/17 13:15 (K-Phos) 2,000 mg UNSCH PRN PO/TUBE 12/31/17 13:15 Potassium Phosphate 30 mmol/ Sodium Chloride 260 ml @ 42 mls/hr UNSCH PRN IV 12/31/17 13:15 (Pepcid Inj) 20 mg Q12HR IV PUSH 12/31/17 13:15 01/01/18 09:28 (Cordarone) 400 mg Q12HR PO 12/31/17 21:00 01/01/18 09:29 Cefazolin Sodium 500 mg/Sodium Chloride 505 ml @ 0 mls/hr NATIONAL ACCOUNT EXECUTIVE IRRIGATION 12/31/17 13:30 01/07/18 13:29 Cefazolin Sodium/ Dextrose 50 ml @ 150 mls/hr NATIONAL ACCOUNT EXECUTIVE IV 12/31/17 13:30 01/07/18 13:29 (Bactroban Nasal 2% Oint) 1 applic BID EACH NARE 12/31/17 13:30 01/05/18 13:29 01/01/18 09:30 (Hibiclens 4% Top Soln) 1 applic NATIONAL ACCOUNT EXECUTIVE TOPICAL 12/31/17 13:30 01/07/18 13:29 Insulin Human Regular 100 units/ Sodium Chloride 100 ml @ 3 mls/hr TITRATE PRN IV 12/31/17 13:30 01/07/18 13:29 (D50w (Vial) Inj) 50 ml UNSCH PRN IV PUSH 12/31/17 13:30 (Morphine Inj) 2 mg Q4H PRN SQ 12/31/17 14:00 Papaverine HCl 60 mg/Nitroglycerin 100 mcg/Verapamil HCl 100 mg/Sodium Chloride 100 ml @ 0 mls/hr NATIONAL ACCOUNT EXECUTIVE IRRIGATION 12/31/17 15:30 01/07/18 13:29 Heparin Sodium/ Dextrose 250 ml @ 10 mls/hr TITRATE PRN IV 12/31/17 17:00 01/01/18 12:56 (Heparin Inj) 5,000 units UNSCH PRN IV PUSH 12/31/17 17:00 (Heparin Inj) 2,500 units UNSCH PRN IV PUSH 12/31/17 17:00 01/01/18 13:24 Amiodarone HCl 450 mg/Dextrose 250 ml @ 33.33 mls/ hr [id number] PRN IV 12/31/17 18:02 12/31/17 18:50 Potassium Chloride/Sodium Chloride 1,000 ml @ 84 mls/hr [id number] IV 12/31/17 18:00 01/01/18 07:24 (Lopressor Inj) 2.5 mg Q6H PRN IV PUSH 12/31/17 18:00 Potassium Chloride 100 ml @ 25 mls/hr UNSCH PRN IV 12/31/17 18:45 (Coreg) 3.125 mg Q12HR PO 01/01/18 09:00 01/01/18 09:29 Vital Signs / I&O Vital Signs Date Time Temp Pulse Resp B/P (MAP) Pulse Ox O2 Delivery O2 Flow Rate FiO2 01/01/18 14:00 01/01/18 13:00 01/01/18 12:00 01/01/18 11:00 96/62 (86) 01/01/18 11:00 99.3 73 18 108/60 (76) 98 01/01/18 11:00 77 01/01/18 11:00 99 Room Air 01/01/18 10:00 01/01/18 09:00 01/01/18 08:00 01/01/18 07:00 99/65 (90) 01/01/18 07:00 98.4 76 18 114/58 (76) 95 01/01/18 07:00 79 01/01/18 07:00 99 Room Air 01/01/18 06:00 94/50 (61) 01/01/18 05:00 88/59 (87) 01/01/18 04:00 99.1 73 16 82/85 (84) 96 104/51 (68) 01/01/18 04:00 91/55 (84) 01/01/18 03:25 97 Room Air 01/01/18 03:00 82/52 (77) 01/01/18 03:00 72 01/01/18 02:00 90/65 (87) 01/01/18 01:00 84/59 (86) 01/01/18 00:00 92/66 (85) 01/01/18 00:00 97.7 76 16 93/70 (78) 97 109/69 (82) 12/31/17 23:01 96 Room Air 12/31/17 23:00 93/70 (81) 12/31/17 23:00 69 12/31/17 22:00 88/56 (77) 12/31/17 21:00 86/55 (84) 12/31/17 20:00 102/65 (90) 12/31/17 20:00 97.7 76 16 102/65 (77) 97 119/71 (87) 12/31/17 20:00 95 Room Air 12/31/17 19:00 78 12/31/17 18:50 83 124/77 12/31/17 18:23 82 140/84 12/31/17 18:00 116/87 (104) 12/31/17 17:00 102/66 (89) 12/31/17 16:00 95/52 (66) I/O 12/31/17 12/31/17 12/31/17 01/01/18 01/01/18 01/01/18 07:00 15:00 23:00 07:00 15:00 23:00 Intake Total 1703 ml 500 ml 2030 ml Output Total 1575 ml 2680 ml Balance 128 ml 500 ml -650 ml Intake Oral 680 ml IV Total 1703 ml 500 ml 1350 ml Output Urine Total 1575 ml 2680 ml Stool Total 0 ml 0 ml Laboratory GENERAL: SKIN: Warm and dry. HEAD: Normocephalic. EYES: No scleral icterus. No injection or drainage. NECK: Supple, trachea midline. No JVD or lymphadenopathy. CARDIOVASCULAR: Regular rate and rhythm without murmurs, gallops, or rubs. RESPIRATORY: Breath sounds equal bilaterally. No accessory muscle use. GASTROINTESTINAL: Abdomen soft, non-tender, nondistended. MUSCULOSKELETAL: No cyanosis, or edema. BACK: Nontender without obvious deformity. No CVA tenderness. Laboratory Tests Test 12/31/17 17:30 12/31/17 21:00 01/01/18 03:37 01/01/18 12:11 White Blood Count 10.3 TH/MM3 8.3 TH/MM3 Red Blood Count 4.71 MIL/MM3 4.58 MIL/MM3 Hemoglobin 14.2 GM/DL 14.0 GM/DL Hematocrit 41.6 % 40.3 % Mean Corpuscular Volume 88.2 FL 87.9 FL Mean Corpuscular Hemoglobin 30.1 PG 30.6 PG Mean Corpuscular Hemoglobin Concent 34.2 % 34.8 % Red Cell Distribution Width 13.4 % 13.6 % Platelet Count 256 TH/MM3 228 TH/MM3 Mean Platelet Volume 8.4 FL 8.8 FL Neutrophils (%) (Auto) 72.1 % 72.9 % Lymphocytes (%) (Auto) 18.4 % 17.2 % Monocytes (%) (Auto) 8.7 % 8.7 % Eosinophils (%) (Auto) 0.3 % 0.9 % Basophils (%) (Auto) 0.5 % 0.3 % Neutrophils # (Auto) 7.4 TH/MM3 6.0 TH/MM3 Lymphocytes # (Auto) 1.9 TH/MM3 1.4 TH/MM3 Monocytes # (Auto) 0.9 TH/MM3 0.7 TH/MM3 Eosinophils # (Auto) 0.0 TH/MM3 0.1 TH/MM3 Basophils # (Auto) 0.0 TH/MM3 0.0 TH/MM3 CBC Comment DIFF FINAL DIFF FINAL Differential Comment Prothrombin Time 10.8 SEC Prothromb Time International Ratio 1.1 RATIO Activated Partial Thromboplast Time 33.8 SEC 33.4 SEC 33.2 SEC Blood Urea Nitrogen 16 MG/DL 13 MG/DL Creatinine 0.77 MG/DL 0.82 MG/DL Random Glucose 119 MG/DL 121 MG/DL Total Protein 6.2 GM/DL 5.9 GM/DL Albumin 3.2 GM/DL 3.1 GM/DL Calcium Level 8.2 MG/DL 8.0 MG/DL Alkaline Phosphatase 73 U/L 73 U/L Aspartate Amino Transf (AST/SGOT) 116 U/L 178 U/L Alanine Aminotransferase (ALT/SGPT) 34 U/L 47 U/L Total Bilirubin 0.7 MG/DL 0.7 MG/DL Sodium Level 143 MEQ/L 141 MEQ/L Potassium Level 3.8 MEQ/L 4.0 MEQ/L Chloride Level 111 MEQ/L 110 MEQ/L Carbon Dioxide Level 20.8 MEQ/L 23.2 MEQ/L Anion Gap 11 MEQ/L 8 MEQ/L Estimat Glomerular Filtration Rate 101 ML/MIN 94 ML/MIN Nasal Screen MRSA (PCR) MRSA NOT DETECTED Magnesium Level 2.4 MG/DL 2.2 MG/DL Direct Bilirubin 0.2 MG/DL Indirect Bilirubin 0.5 MG/DL Total Creatine Kinase 1979 U/L Creatine Kinase MB 120.8 NG/ML Creatine Kinase MB % 6.1 % B-Type Natriuretic Peptide 277 PG/ML Triglycerides Level 79 MG/DL Cholesterol Level 152 MG/DL LDL Cholesterol 95 MG/DL HDL Cholesterol 41.1 MG/DL Cholesterol/HDL Ratio 3.69 RATIO Imaging Last 24 hours Impressions Chest X-Ray 01/01/18 0000 Signed Impressions: CONCLUSION: No acute cardiopulmonary abnormality is identified for technique. Assessment and Plan Problem List: (1) STEMI (ST elevation myocardial infarction) ICD Codes: I21.3 - ST elevation (STEMI) myocardial infarction of unspecified site Status: Acute (2) Ventricular fibrillation ICD Codes: I49.01 - Ventricular fibrillation (3) Ischemic cardiomyopathy ICD Codes: I25.5 - Ischemic cardiomyopathy (4) On intra-aortic balloon pump assist ICD Codes: Z98.890 - Other specified postprocedural states (5) Multi-vessel coronary artery stenosis ICD Codes: I25.10 - Atherosclerotic heart disease of false pass coronary artery without angina pectoris Assessment and Plan 1.) pod # 1 primary pci lad, ekg changes resolved, f/u echo, continue aspirin, iv hep, iabp, coreg, amio; effient dosing per ct surg, d/w Dr mclaughlin and Cabrera Problem Qualifiers (1) STEMI (ST elevation myocardial infarction): Qualified Codes: I21.3 - ST elevation (STEMI) myocardial infarction of unspecified site Puma Sullivan MD Jan 01, 2018 15:19
--- NOTE | 2018-01-01 15:49 | ECHRPT ---
Indication: STEMI CONCLUSIONS The left ventricular systolic function is severely reduced with an estimated ejection fraction in th e range of 30-35%. The basal inferior wall is scarred and akientic. The distal anteroseptum and entire apex is akinetic. Trace mitral valve regurgitation. Aortic valve sclerosis is present. The pulmonary valve is not well visualized. BP: / HR: Rhythm: Technical Quality: FINDINGS LEFT VENTRICLE The left ventricular systolic function is severely reduced with an estimated ejection fraction in th e range of 30-35%. The basal inferior wall is scarred and akientic. The distal anteroseptum and entire apex is akinetic. RIGHT VENTRICLE Normal right ventricular size and systolic function. LEFT ATRIUM The left atrial size is normal. RIGHT ATRIUM The right atrial size is normal. ATRIAL SEPTUM Normal atrial septal thickness without atrial level shunting by limited color doppler interrogation. AORTA The aortic root and proximal ascending aorta are normal in size on limited imaging. MITRAL VALVE Structurally normal mitral valve. Trace mitral valve regurgitation. AORTIC VALVE Trileaflet aortic valve. Aortic valve sclerosis is present. TRICUSPID VALVE Structurally normal tricuspid valve. No tricuspid valve stenosis or regurgitation. PULMONARY VALVE The pulmonary valve is not well visualized. VESSELS The inferior vena cava is normal in size. PERICARDIUM No pericardial effusion. Jose Mcfadden MD (Electronically Signed) Final Date:01 January 2018 15:48
[2018-01-01] MEDS: ATORVASTATIN 40 MG TAB PO SCH (21:01)
[2018-01-02] VITALS (8 sets, daily range): BP systolic 94–135; BP diastolic 62–73; PULSE 68–77; RESP 16–20; TEMP 97.9–99.5; O2SAT 94–98
[2018-01-02 04:12] LABS: AUTOMATED NEUTROPHIL # 7.3 TH/MM3 (1.8-7.7); BASOPHIL % 0.5 % (0.0-2.0); EOSINOPHIL # 0.2 TH/MM3 (0-0.4); EOSINOPHIL % 1.5 % (0.0-4.0); HEMATOCRIT 40.7 % (39.0-51.0); HEMOGLOBIN 14.2 GM/DL (13.0-17.0); LYMPH % 16.5 % (9.0-44.0); LYMPHOCYTE # 1.7 TH/MM3 (1.0-4.8); MEAN CELL VOLUME 87.2 FL (80.0-100.0); MEAN CORPUSCULAR HEMOGLOBIN 30.3 PG (27.0-34.0); MEAN CORPUSCULAR HGB CONC 34.8 % (32.0-36.0); MEAN PLATELET VOLUME 8.9 FL (7.0-11.0); MONO % 8.9 % (0.0-8.0); MONOCYTE # 0.9 TH/MM3 (0-0.9); NEUT % 72.6 % (16.0-70.0); PLATELET COUNT 214 TH/MM3 (150-450); RED BLOOD COUNT 4.67 MIL/MM3 (4.50-5.90); RED CELL DISTRIBUTION WIDTH 13.7 % (11.6-17.2)
[2018-01-02 04:32] LABS: ALBUMIN 3.1 GM/DL (3.4-5.0); AST (GOT) 121 U/L (15-37); BICARBONATE 22.3 MEQ/L (21.0-32.0); BLOOD UREA NITROGEN 10 MG/DL (7-18); CALCIUM 8.4 MG/DL (8.5-10.1); CHLORIDE 111 MEQ/L (98-107); CREATININE 0.81 MG/DL (0.60-1.30); GLOMERULAR FILTRATION RATE 95 ML/MIN (>89); GLUCOSE,RANDOM 135 MG/DL (74-106); SODIUM (NA) 142 MEQ/L (136-145)
[2018-01-02 04:34] LABS: ALKALINE PHOSPHATASE 76 U/L (45-117); ALT (GPT) 51 U/L (12-78); TOTAL BILIRUBIN ADULT 0.6 MG/DL (0.2-1.0); TOTAL PROTEIN 6.4 GM/DL (6.4-8.2)
[2018-01-02] MEDS: NS + KCL 40 MEQ INJ 1,000 ML IV SCH ×2 (05:36→21:57)
[2018-01-02] MEDS: HEPARIN 25,000 UNITS-D5W 250 ML - PREMIX IV PRN ×2 (06:07→21:53)
--- NOTE | 2018-01-02 08:05 | HHI.CCPN ---
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 Apparently he rode bike 5 miles back to the car and presented to the emergency department. Stat EKG showed anterolateral ST elevations and a STEMI alert was called. He was given aspirin and was emergently taken to the [employer] [employer]. He has no previous history of coronary artery disease or any other significant coronary artery risk factors other than age and sex. Cardiac catheterization by Dr. Sullivan showed occluded mid left anterior descending to be the culprit lesion, a bare-metal stent was placed. Patient was also found to have three-vessel coronary artery disease and ischemic cardiomyopathy with EF 25-30% with severe hypokinesis to akinesis of the inferoapical and distal anteroapical wall. Patient was continued on IV heparin, Aggrastat was started IV. Patient was also loaded with Effient. Dr. Sullivan placed IABP after PCI and stent. CT surgery was consulted for three-vessel coronary artery disease for CABG evaluation. I evaluated the patient in the ICU. He is lying on bed denies any chest pain at this time, mildly anxious. IABP in place without hematoma at the insertion site-intermittently augmenting well. Cardiac catheterization site at right groin also without any hematoma. According to Dr. Sullivan patient had reperfusion arrhythmia/ventricular fibrillation in [employer] which needed cardioversion x2. Will start on IV amiodarone per Dr. Vicente. I will also add carvedilol 3.125 mg twice daily, and Lipitor SUBJ 01/01: Currently appears comfortable, no further sustained VTAC, minimal PVCs, and paroxysmal a fib. IABP with good augmentation. Remains on IV Heparin. IV Aggrastat, and IV Amiodarone. 01/02: Lying in bed comfortably no further arrhythmias. Denies chest. IABP remains in place. 2D echo showed EF 30-35%. The basal inferior wall is scarred and akientic. The distal anteroseptum and entire apex is akinetic. CABG eval/plan per CTS Objective Vital Signs Date Time Temp Pulse Resp B/P (MAP) Pulse Ox O2 Delivery O2 Flow Rate FiO2 01/02/18 06:00 95/61 (89) 01/02/18 03:00 70 01/02/18 03:00 98.8 16 98 01/02/18 03:00 Room Air 12/31/17 10:45 2.00 Intake and Output 01/02/18 01/02/18 01/02/18 07:59 15:59 23:59 Intake Total 2450 ml Output Total 3200 ml Balance -750 ml Result Diagram: 01/02/18 0324 01/02/18 0324 Imaging Chest x-ray shows no acute finding Objective Remarks GENERAL: Awake and alert, in no distress. Denies chest pain SKIN: Warm/dry. HEAD: Atraumatic. Normocephalic. EYES: Pupils equal and round. No scleral icterus. ENT: Mucous membranes. NECK: Trachea midline. No JVD. CARDIOVASCULAR: Regular rate and rhythm. No murmur appreciated, IABP intermittently augmenting well RESPIRATORY: No accessory muscle use. Clear to auscultation. Breath sounds equal bilaterally. GASTROINTESTINAL: Abdomen soft, non-tender, nondistended. MUSCULOSKELETAL: Right groin cath site without hematoma. Left groin IABP incision site without hematoma. Peripheral pulses are palpable NEUROLOGICAL: Awake and alert. No obvious cranial nerve deficits. Motor grossly within normal limits. Normal speech. A/P Assessment and Plan NEURO: -As needed morphine for pain RESP: -Nasal cannula oxygen, if needed to keep sats above 92% -Aggressive pulmonary toilet CV: Acute STEMI Ischemic cardiomyopathy Reperfusion arrhythmia/ventricular fibrillation Multivessel coronary artery disease -Patient is status post cardiac catheterization and BMS to the LAD (cath showed 3 vessel CAD with RCA and LAD occlusion, EF 30%) -2D echo showed EF 30-35%. The basal inferior wall is scarred and akientic. The distal anteroseptum and entire apex is akinetic. -CABG plan per CTS -Continue aspirin daily. Post PCI/stent placed on Effient, placed on hold by CTS for possible CABG -Completed IV Aggrastat, continue IV heparin -IABP with one-to-one augmentation -Continue p.o. amiodarone 400 mg p.o. twice daily -Carvedilol 3.125 mg every 12 -Lipitor 40 mg nightly GI: -IV famotidine for GI prophylaxis : -Monitor renal function closely. ID: -Periprocedural antibiotics per cardiology HEME: -Monitor CBC, CMP, coags ENDO: -Electrolyte replacement per protocol PROPH: -IV heparin, IV famotidine LINES: -Utilize peripheral IVs, central line if needed Level 2 Patient remains critically ill but stable. Arrhythmias are better controlled. CTS following for possible CABG. Continue IABP deferred to CT surgery and cardiology Melissa Casillas MD Jan 02, 2018 08:05
[2018-01-02] MEDS ORDERED: MAGNESIUM SULFATE 1 GM PREMIX 100 ML IV ONE (08:30)
[2018-01-02] MEDS: CARVEDILOL 3.125 MG TAB PO SCH ×2 (09:04→21:26)
[2018-01-02] MEDS: FAMOTIDINE 20 MG/2 ML VIAL IV PUSH SCH ×2 (09:05→21:27)
[2018-01-02] MEDS: ASPIRIN 81 MG CHEW TAB PO SCH (09:05)
[2018-01-02] MEDS: MUPIROCIN 2% OINT 1 APPLIC/GM SYR EACH NARE SCH ×2 (09:05→21:26)
[2018-01-02] MEDS: AMIODARONE 200 MG TAB PO SCH ×2 (09:06→21:26)
[2018-01-02] MEDS: SODIUM CHLORIDE 0.9% FLUSH 10 ML FLUSH IV FLUSH SCH ×2 (09:07→21:00)
--- NOTE | 2018-01-02 10:38 | PD.CAR.PN ---
CVT Progress Note Subjective/Hospital Course: 01/01/18 Stable. Denies chest pain and ectopy has resolved with amiodarone. ECHO - pending 01/02 Doing well. No CP Lengthy discussion with the pt regarding clinical and angiographic findings Plan OR Thursday afternoon or Thursday Will decide about potential removal of the IABP tomorrow Objective: Vital Signs Date Time Temp Pulse Resp B/P (MAP) Pulse Ox O2 Delivery O2 Flow Rate FiO2 01/02/18 09:20 21 01/02/18 08:00 98.0 73 16 106/70 (82) 118/67 (84) 01/02/18 08:00 Room Air 01/02/18 08:00 70 01/02/18 08:00 106/70 (95) 01/02/18 06:00 95/61 (89) 01/02/18 05:00 101/63 (93) 01/02/18 04:00 104/64 (84) 01/02/18 03:00 109/77 (97) 01/02/18 03:00 70 01/02/18 03:00 98.8 76 16 130/71 (90) 98 01/02/18 03:00 99 Room Air 01/02/18 02:00 95/64 (94) 01/02/18 01:00 98/60 (94) 01/02/18 00:00 107/71 (95) 01/01/18 23:00 78 01/01/18 23:00 105/68 (96) 01/01/18 23:00 98 Room Air 01/01/18 23:00 98.6 76 12 120/72 (88) 98 01/01/18 22:00 105/69 (96) 01/01/18 21:00 107/68 (95) 01/01/18 20:00 111/68 (94) 01/01/18 19:00 98.4 78 12 110/60 (77) 98 01/01/18 19:00 103/67 (91) 01/01/18 19:00 98 Room Air 01/01/18 19:00 79 01/01/18 18:00 01/01/18 17:00 01/01/18 16:00 01/01/18 15:00 99.7 75 18 112/62 (79) 96 01/01/18 15:00 99 Room Air 01/01/18 15:00 75 01/01/18 15:00 95/58 (86) 01/01/18 14:00 01/01/18 13:00 01/01/18 12:00 01/01/18 11:00 96/62 (86) 01/01/18 11:00 99.3 73 18 108/60 (76) 98 01/01/18 11:00 77 01/01/18 11:00 99 Room Air Labs: Laboratory Tests Test 01/02/18 03:24 01/02/18 09:29 White Blood Count 10.0 TH/MM3 (4.0-11.0) Red Blood Count 4.67 MIL/MM3 (4.50-5.90) Hemoglobin 14.2 GM/DL (13.0-17.0) Hematocrit 40.7 % (39.0-51.0) Mean Corpuscular Volume 87.2 FL (80.0-100.0) Mean Corpuscular Hemoglobin 30.3 PG (27.0-34.0) Mean Corpuscular Hemoglobin Concent 34.8 % (32.0-36.0) Red Cell Distribution Width 13.7 % (11.6-17.2) Platelet Count 214 TH/MM3 (150-450) Mean Platelet Volume 8.9 FL (7.0-11.0) Neutrophils (%) (Auto) 72.6 % (16.0-70.0) Lymphocytes (%) (Auto) 16.5 % (9.0-44.0) Monocytes (%) (Auto) 8.9 % (0.0-8.0) Eosinophils (%) (Auto) 1.5 % (0.0-4.0) Basophils (%) (Auto) 0.5 % (0.0-2.0) Neutrophils # (Auto) 7.3 TH/MM3 (1.8-7.7) Lymphocytes # (Auto) 1.7 TH/MM3 (1.0-4.8) Monocytes # (Auto) 0.9 TH/MM3 (0-0.9) Eosinophils # (Auto) 0.2 TH/MM3 (0-0.4) Basophils # (Auto) 0.0 TH/MM3 (0-0.2) CBC Comment DIFF FINAL Differential Comment Activated Partial Thromboplast Time 43.5 SEC (24.3-30.1) 38.9 SEC (24.3-30.1) Blood Urea Nitrogen 10 MG/DL (7-18) Creatinine 0.81 MG/DL (0.60-1.30) Random Glucose 135 MG/DL (74-106) Total Protein 6.4 GM/DL (6.4-8.2) Albumin 3.1 GM/DL (3.4-5.0) Calcium Level 8.4 MG/DL (8.5-10.1) Magnesium Level 2.0 MG/DL (1.5-2.5) Alkaline Phosphatase 76 U/L (45-117) Aspartate Amino Transf (AST/SGOT) 121 U/L (15-37) Alanine Aminotransferase (ALT/SGPT) 51 U/L (12-78) Total Bilirubin 0.6 MG/DL (0.2-1.0) Sodium Level 142 MEQ/L (136-145) Potassium Level 4.0 MEQ/L (3.5-5.1) Chloride Level 111 MEQ/L (98-107) Carbon Dioxide Level 22.3 MEQ/L (21.0-32.0) Anion Gap 9 MEQ/L (5-15) Estimat Glomerular Filtration Rate 95 ML/MIN (>89) Result Diagram: 01/02/1832301/02/18323 (1) STEMI (ST elevation myocardial infarction) (2) Ventricular fibrillation (3) Ischemic cardiomyopathy (4) On intra-aortic balloon pump assist (5) Multi-vessel coronary artery stenosis Problem Qualifiers (1) STEMI (ST elevation myocardial infarction): Qualified Codes: I21.3 - ST elevation (STEMI) myocardial infarction of unspecified site Trudi Cabrera MD Jan 02, 2018 10:38
[2018-01-02] MEDS: HEPARIN SODIUM - IV 10,000 UNITS/10 ML VIAL IV PUSH PRN (10:43)
--- NOTE | 2018-01-02 13:02 | PD.CARD.PN ---
Subjective Subjective Remarks assymptomatic in nad Objective Medications Current Medications Medications (Trade) Dose Ordered Sig/Pascual Route Start Time Stop Time Status Last Admin (NS Flush) 2 ml UNSCH PRN IV FLUSH 12/31/17 12:30 (NS Flush) 2 ml BID IV FLUSH 12/31/17 21:00 01/02/18 09:07 (Aspirin Chew) 162 mg DAILY PO 01/01/18 09:00 01/02/18 09:05 (Lipitor) 40 mg HS PO 12/31/17 21:00 01/01/18 21:01 Potassium Chloride 100 ml @ 50 mls/hr Q2H PRN IV 12/31/17 13:15 Potassium Chloride 100 ml @ 50 mls/hr Q2H PRN IV 12/31/17 13:15 (K-Lyte Cl Eff) 50 meq UNSCH PRN PO 12/31/17 13:15 Potassium Chloride 100 ml @ 25 mls/hr UNSCH PRN IV 12/31/17 13:15 Potassium Chloride 100 ml @ 50 mls/hr Q2H PRN IV 12/31/17 13:15 01/01/18 09:28 Magnesium Sulfate 4 gm/Sodium Chloride 100 ml @ 50 mls/hr UNSCH PRN IV 12/31/17 13:15 (Mag-Ox) 800 mg UNSCH PRN PO 12/31/17 13:15 Magnesium Sulfate 2 gm/Sodium Chloride 100 ml @ 50 mls/hr UNSCH PRN IV 12/31/17 13:15 12/31/17 19:00 (K-Phos) 2,000 mg Q4H PRN PO 12/31/17 13:15 12/31/17 16:11 Sodium Phosphate 30 mmol/Sodium Chloride 250 ml @ 42 mls/hr UNSCH PRN IV 12/31/17 13:15 (K-Phos) 2,000 mg UNSCH PRN PO/TUBE 12/31/17 13:15 Potassium Phosphate 30 mmol/ Sodium Chloride 260 ml @ 42 mls/hr UNSCH PRN IV 12/31/17 13:15 (Pepcid Inj) 20 mg Q12HR IV PUSH 12/31/17 13:15 01/02/18 09:05 (Cordarone) 400 mg Q12HR PO 12/31/17 21:00 01/02/18 09:06 Cefazolin Sodium 500 mg/Sodium Chloride 505 ml @ 0 mls/hr [employer] 12/31/17 13:30 01/07/18 13:29 Cefazolin Sodium/ Dextrose 50 ml @ 150 mls/hr [employer] IV 12/31/17 13:30 01/07/18 13:29 (Bactroban Nasal 2% Oint) 1 applic BID EACH NARE 12/31/17 13:30 01/05/18 13:29 01/02/18 09:05 (Hibiclens 4% Top Soln) 1 applic [employer] TOPICAL 12/31/17 13:30 01/07/18 13:29 Insulin Human Regular 100 units/ Sodium Chloride 100 ml @ 3 mls/hr TITRATE PRN IV 12/31/17 13:30 01/07/18 13:29 (D50w (Vial) Inj) 50 ml UNSCH PRN IV PUSH 12/31/17 13:30 (Morphine Inj) 2 mg Q4H PRN SQ 12/31/17 14:00 Papaverine HCl 60 mg/Nitroglycerin 100 mcg/Verapamil HCl 100 mg/Sodium Chloride 100 ml @ 0 mls/hr [employer] 12/31/17 15:30 01/07/18 13:29 Heparin Sodium/ Dextrose 250 ml @ 10 mls/hr TITRATE PRN IV 12/31/17 17:00 01/02/18 06:07 (Heparin Inj) 5,000 units UNSCH PRN IV PUSH 12/31/17 17:00 (Heparin Inj) 2,500 units UNSCH PRN IV PUSH 12/31/17 17:00 01/02/18 10:43 Amiodarone HCl 450 mg/Dextrose 250 ml @ 33.33 mls/ hr Q7H31M PRN IV 12/31/17 18:02 12/31/17 18:50 Potassium Chloride/Sodium Chloride 1,000 ml @ 50 mls/hr Q20H IV 12/31/17 18:00 01/02/18 05:36 (Lopressor Inj) 2.5 mg Q6H PRN IV PUSH 12/31/17 18:00 Potassium Chloride 100 ml @ 25 mls/hr UNSCH PRN IV 12/31/17 18:45 (Coreg) 3.125 mg Q12HR PO 01/01/18 09:00 01/02/18 09:04 Vital Signs / I&O Vital Signs Date Time Temp Pulse Resp B/P (MAP) Pulse Ox O2 Delivery O2 Flow Rate FiO2 01/02/18 12:00 92/57 (86) 01/02/18 11:00 94/63 (90) 01/02/18 11:00 97.9 68 16 94/63 (73) 113/62 (79) 01/02/18 11:00 70 01/02/18 11:00 94 Room Air 01/02/18 10:00 96/65 (92) 01/02/18 09:20 21 01/02/18 09:00 103/71 (98) 01/02/18 08:00 98.0 73 16 106/70 (82) 118/67 (84) 01/02/18 08:00 Room Air 01/02/18 08:00 70 01/02/18 08:00 106/70 (95) 01/02/18 07:00 96/63 (90) 01/02/18 06:00 95/61 (89) 01/02/18 05:00 101/63 (93) 01/02/18 04:00 104/64 (84) 01/02/18 03:00 109/77 (97) 01/02/18 03:00 70 01/02/18 03:00 98.8 76 16 130/71 (90) 98 01/02/18 03:00 99 Room Air 01/02/18 02:00 95/64 (94) 01/02/18 01:00 98/60 (94) 01/02/18 00:00 107/71 (95) 01/01/18 23:00 78 01/01/18 23:00 105/68 (96) 01/01/18 23:00 98 Room Air 01/01/18 23:00 98.6 76 12 120/72 (88) 98 01/01/18 22:00 105/69 (96) 01/01/18 21:00 107/68 (95) 01/01/18 20:00 111/68 (94) 01/01/18 19:00 98.4 78 12 110/60 (77) 98 01/01/18 19:00 103/67 (91) 01/01/18 19:00 98 Room Air 01/01/18 19:00 79 01/01/18 18:00 01/01/18 17:00 01/01/18 16:00 01/01/18 15:00 99.7 75 18 112/62 (79) 96 01/01/18 15:00 99 Room Air 01/01/18 15:00 75 01/01/18 15:00 95/58 (86) 01/01/18 14:00 I/O 01/01/18 01/01/18 01/01/18 01/02/18 01/02/18 01/02/18 07:00 15:00 23:00 07:00 15:00 23:00 Intake Total 500 ml 2446 ml 800 ml 2450 ml 100 ml Output Total 2680 ml 3650 ml 3200 ml Balance 500 ml -234 ml -2850 ml -750 ml 100 ml Intake Oral 680 ml 800 ml 1200 ml IV Total 500 ml 1766 ml 1250 ml 100 ml Output Urine Total 2680 ml 3650 ml 3200 ml Stool Total 0 ml # Bowel Movements 0 0 Physical Exam GENERAL: SKIN: Warm and dry. HEAD: Normocephalic. EYES: No scleral icterus. No injection or drainage. NECK: Supple, trachea midline. No JVD or lymphadenopathy. CARDIOVASCULAR: Regular rate and rhythm without murmurs, gallops, or rubs. RESPIRATORY: Breath sounds equal bilaterally. No accessory muscle use. GASTROINTESTINAL: Abdomen soft, non-tender, nondistended. MUSCULOSKELETAL: No cyanosis, or edema. BACK: Nontender without obvious deformity. No CVA tenderness. Laboratory Laboratory Tests Test 01/01/18 19:24 01/02/18 03:24 01/02/18 09:29 Activated Partial Thromboplast Time 35.4 SEC 43.5 SEC 38.9 SEC Potassium Level 4.2 MEQ/L 4.0 MEQ/L White Blood Count 10.0 TH/MM3 Red Blood Count 4.67 MIL/MM3 Hemoglobin 14.2 GM/DL Hematocrit 40.7 % Mean Corpuscular Volume 87.2 FL Mean Corpuscular Hemoglobin 30.3 PG Mean Corpuscular Hemoglobin Concent 34.8 % Red Cell Distribution Width 13.7 % Platelet Count 214 TH/MM3 Mean Platelet Volume 8.9 FL Neutrophils (%) (Auto) 72.6 % Lymphocytes (%) (Auto) 16.5 % Monocytes (%) (Auto) 8.9 % Eosinophils (%) (Auto) 1.5 % Basophils (%) (Auto) 0.5 % Neutrophils # (Auto) 7.3 TH/MM3 Lymphocytes # (Auto) 1.7 TH/MM3 Monocytes # (Auto) 0.9 TH/MM3 Eosinophils # (Auto) 0.2 TH/MM3 Basophils # (Auto) 0.0 TH/MM3 CBC Comment DIFF FINAL Differential Comment Blood Urea Nitrogen 10 MG/DL Creatinine 0.81 MG/DL Random Glucose 135 MG/DL Total Protein 6.4 GM/DL Albumin 3.1 GM/DL Calcium Level 8.4 MG/DL Magnesium Level 2.0 MG/DL Alkaline Phosphatase 76 U/L Aspartate Amino Transf (AST/SGOT) 121 U/L Alanine Aminotransferase (ALT/SGPT) 51 U/L Total Bilirubin 0.6 MG/DL Sodium Level 142 MEQ/L Chloride Level 111 MEQ/L Carbon Dioxide Level 22.3 MEQ/L Anion Gap 9 MEQ/L Estimat Glomerular Filtration Rate 95 ML/MIN Assessment and Plan Problem List: (1) STEMI (ST elevation myocardial infarction) ICD Codes: I21.3 - ST elevation (STEMI) myocardial infarction of unspecified site Status: Acute (2) Ventricular fibrillation ICD Codes: I49.01 - Ventricular fibrillation (3) Ischemic cardiomyopathy ICD Codes: I25.5 - Ischemic cardiomyopathy (4) On intra-aortic balloon pump assist ICD Codes: Z98.890 - Other specified postprocedural states (5) Multi-vessel coronary artery stenosis ICD Codes: I25.10 - Atherosclerotic heart disease of [place] coronary artery without angina pectoris Assessment and Plan 1.) pod # 2 primary pci lad, ekg changes resolved, ef=30-35% with akinetic apex on echo, d/w Dr Mcfadden who read echo, continue aspirin, iv hep, iabp, coreg, amio; effient dosing per ct surg, d/w Dr Garrett Problem Qualifiers (1) STEMI (ST elevation myocardial infarction): Qualified Codes: I21.3 - ST elevation (STEMI) myocardial infarction of unspecified site Puma Sullivan MD Jan 02, 2018 13:02
[2018-01-02] MEDS: ATORVASTATIN 40 MG TAB PO SCH (21:26)
--- NOTE | 2018-01-02 22:42 | RADRPT ---
EXAM DATE: 01/02/2018 10:30 PM EDT AGE/SEX: 67 years / Male INDICATIONS: Pre op cardiac surgery. CLINICAL DATA: This is the patient's initial encounter. Patient reports that signs and symptoms have been present for 1 day and indicates a pain score of 0/10. MEDICAL/SURGICAL HISTORY: . Vfib. Myocardial infarction. Coronary artery disease. Cholecystect gris. Bilateral hip replacement. Cardiac catheterization. COMPARISON: No prior exams available for comparison. MEASUREMENTS: RIGHT THIGH: Proximal:__6 mm Mid:__ 2 mm Distal:__Non-visualized LEFT THIGH: Proximal:__6 mm Mid:__2 mm Distal:__Non-visualized RIGHT CALF: Proximal:__1 mm Mid:__Non-visualized Distal:__Non-visualized LEFT CALF: Proximal:__Non-visualized Mid:__Non-visualized Distal:__Non-visualized FINDINGS: The venous system of the lower extremities are patent by color Doppler imaging. Measurements of the leg veins (in mm) are listed above. CONCLUSION: 1. Normal venous mapping with measurements as above. Some vessels not visualized. Electronically signed by: Juan F Moncada MD 01/02/2018 10:40 PM EDT
--- NOTE | 2018-01-02 22:43 | RADRPT ---
EXAM DATE: 01/02/2018 10:28 PM EDT AGE/SEX: 67 years / Male INDICATIONS: PreOp cardiac surgery. CLINICAL DATA: This is the patient's initial encounter. Patient reports that signs and symptoms have been present for 1 day and indicates a pain score of 0/10. MEDICAL/SURGICAL HISTORY: . Vfib. Myocardial infarction. Coronary artery disease. Cholecystect gris. Bilateral hip replacement. Cardiac catheterization. COMPARISON: No prior exams available for comparison. TECHNIQUE: Venous ultrasound of both lower extremities was performed from the inguinal ligament to t he proximal calf. Real-time, color Doppler and spectral tracing, compression and augmentation techni ques were used. FINDINGS: No evidence for deep venous thrombosis in the femoral vein, popliteal vein, peroneal vein or posterior tibial and saphenous. CONCLUSION: 1. The study is negative for lower extremity deep venous thrombosis. Electronically signed by: Juan F Moncada MD 01/02/2018 10:41 PM EDT
[2018-01-03] VITALS (7 sets, daily range): BP systolic 93–118; BP diastolic 57–85; PULSE 60–92; RESP 16–20; TEMP 98.4–99.8; O2SAT 95–97
--- NOTE | 2018-01-03 08:12 | HHI.CCPN ---
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 Apparently he rode bike 5 miles back to the car and presented to the emergency department. Stat EKG showed anterolateral ST elevations and a STEMI alert was called. He was given aspirin and was emergently taken to the [facility]. He has no previous history of coronary artery disease or any other significant coronary artery risk factors other than age and sex. Cardiac catheterization by Dr. Sullivan showed occluded mid left anterior descending to be the culprit lesion, a bare-metal stent was placed. Patient was also found to have three-vessel coronary artery disease and ischemic cardiomyopathy with EF 25-30% with severe hypokinesis to akinesis of the inferoapical and distal anteroapical wall. Patient was continued on IV heparin, Aggrastat was started IV. Patient was also loaded with Effient. Dr. Sullivan placed IABP after PCI and stent. CT surgery was consulted for three-vessel coronary artery disease for CABG evaluation. I evaluated the patient in the ICU. He is lying on bed denies any chest pain at this time, mildly anxious. IABP in place without hematoma at the insertion site-intermittently augmenting well. Cardiac catheterization site at right groin also without any hematoma. According to Dr. 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 Will start on IV amiodarone per Dr. Vicente. I will also add carvedilol 3.125 mg twice daily, and Lipitor SUBJ 01/01: Currently appears comfortable, no further sustained VTAC, minimal PVCs, and paroxysmal a fib. IABP with good augmentation. Remains on IV Heparin. IV Aggrastat, and IV Amiodarone. 01/02: Lying in bed comfortably no further arrhythmias. Denies chest. IABP remains in place. 2D echo showed EF 30-35%. The basal inferior wall is scarred and akientic. The distal anteroseptum and entire apex is akinetic. CABG eval/plan per CTS 01/03: Denies chest pain no arrhythmias. IABP still Augmentin well. Possible removal today. CABG tentatively planned for Thursday per Dr. Cabrera Objective Vital Signs Date Time Temp Pulse Resp B/P (MAP) Pulse Ox O2 Delivery O2 Flow Rate FiO2 01/03/18 07:00 97 Room Air 01/03/18 07:00 93/58 (85) 01/03/18 07:00 98.6 92 16 01/02/18 21:05 21 12/31/17 10:45 2.00 Intake and Output 01/03/18 01/03/18 01/04/18 08:00 16:00 00:00 Intake Total 2106 ml Output Total 2225 ml Balance -119 ml Result Diagram: 01/02/18 0324 01/02/18 0324 Other Results Microbiology Date/Time Source Procedure Growth Status 12/31/17 14:45 Urine Clean Catch Urine Culture - Final NO GROWTH IN 48 HOURS. Complete Imaging Chest x-ray shows no acute finding Objective Remarks GENERAL: Awake and alert, in no distress. Denies chest pain SKIN: Warm/dry. HEAD: Atraumatic. Normocephalic. EYES: Pupils equal and round. No scleral icterus. ENT: Mucous membranes. NECK: Trachea midline. No JVD. CARDIOVASCULAR: Regular rate and rhythm. No murmur appreciated, IABP augmenting well RESPIRATORY: No accessory muscle use. Clear to auscultation. Breath sounds equal bilaterally. GASTROINTESTINAL: Abdomen soft, non-tender, nondistended. MUSCULOSKELETAL: Right groin cath site without hematoma. Left groin IABP incision site without hematoma. Peripheral pulses are palpable NEUROLOGICAL: Awake and alert. No obvious cranial nerve deficits. Motor grossly within normal limits. Normal speech. In good spirits A/P Assessment and Plan NEURO: -As needed morphine for pain RESP: -Nasal cannula oxygen, if needed to keep sats above 92% -Aggressive pulmonary toilet CV: Acute STEMI Ischemic cardiomyopathy Reperfusion arrhythmia/ventricular fibrillation Multivessel coronary artery disease -Patient is status post cardiac catheterization and BMS to the LAD (cath showed 3 vessel CAD with RCA and LAD occlusion, EF 30%) -2D echo showed EF 30-35%. The basal inferior wall is scarred and akientic. The distal anteroseptum and entire apex is akinetic. -CABG plan per CTS tentatively planned for Thursday or Thursday -Continue aspirin daily. Post PCI/stent placed on Effient, placed on hold by CTS for possible CABG -Completed IV Aggrastat, continue IV heparin -IABP with one-to-one augmentation-possible removal today -Continue p.o. amiodarone 400 mg p.o. twice daily -Carvedilol 3.125 mg every 12 -Lipitor 40 mg nightly GI: -IV famotidine for GI prophylaxis : -Monitor renal function closely. ID: -Periprocedural antibiotics per cardiology HEME: -Monitor CBC, CMP, coags ENDO: -Electrolyte replacement per protocol PROPH: -IV heparin, IV famotidine LINES: -Utilize peripheral IVs, central line if needed Level 2 Melissa Casillas MD Jan 03, 2018 08:12
[2018-01-03] MEDS: MUPIROCIN 2% OINT 1 APPLIC/GM SYR EACH NARE SCH ×2 (08:41→21:36)
[2018-01-03] MEDS: CARVEDILOL 3.125 MG TAB PO SCH ×2 (08:42→21:36)
[2018-01-03] MEDS: FAMOTIDINE 20 MG/2 ML VIAL IV PUSH SCH (08:42)
[2018-01-03] MEDS: ASPIRIN 81 MG CHEW TAB PO SCH (08:43)
[2018-01-03] MEDS: AMIODARONE 200 MG TAB PO SCH ×2 (08:43→21:37)
[2018-01-03] MEDS: SODIUM CHLORIDE 0.9% FLUSH 10 ML FLUSH IV FLUSH SCH ×2 (09:00→21:00)
[2018-01-03 09:25] LABS: MAGNESIUM 2.1 MG/DL (1.5-2.5)
[2018-01-03] MEDS: HEPARIN SODIUM - IV 10,000 UNITS/10 ML VIAL IV PUSH PRN ×2 (09:31→21:32)
--- NOTE | 2018-01-03 09:45 | PD.CAR.PN ---
CVT Progress Note Subjective/Hospital Course: 01/01/18 Stable. Denies chest pain and ectopy has resolved with amiodarone. ECHO - pending 01/02 Doing well. No CP Lengthy discussion with the pt regarding clinical and angiographic findings Plan OR Thursday afternoon or Thursday Will decide about potential removal of the IABP tomorrow 01/03 Planned OR tomorrow, however, his platelet function still very abnormal. Will hold off on OR until function normalizes. Will recheck PRU in am again Objective: Vital Signs Date Time Temp Pulse Resp B/P (MAP) Pulse Ox O2 Delivery O2 Flow Rate FiO2 01/03/18 09:09 102/62 (91) 01/03/18 08:00 100/61 (92) 01/03/18 07:00 97 Room Air 01/03/18 07:00 93/58 (85) 01/03/18 07:00 98.6 92 16 93/85 (88) 97 117/57 (77) 01/03/18 07:00 70 01/03/18 06:00 96/63 (82) 01/03/18 05:01 102/68 (95) 01/03/18 04:00 94/65 (90) 01/03/18 03:40 71 01/03/18 03:40 98.4 74 18 102/66 (78) 96 117/57 (77) 01/03/18 03:40 96 Room Air 01/03/18 03:00 102/66 (94) 01/03/18 02:00 98/60 (86) 01/03/18 01:00 106/67 (98) 01/03/18 00:00 100/62 (116) 01/02/18 23:31 97 Room Air 01/02/18 23:30 72 01/02/18 23:00 105/65 (94) 01/02/18 23:00 98.4 73 20 105/65 (78) 97 135/73 (93) 01/02/18 22:00 110/67 (102) 01/02/18 21:05 21 01/02/18 21:00 100/69 (95) 01/02/18 20:00 98.0 75 20 100/65 (77) 97 117/69 (85) 01/02/18 20:00 100/65 (93) 01/02/18 19:45 97 Room Air 01/02/18 19:30 77 01/02/18 19:00 104/60 (91) 01/02/18 18:00 100/59 (91) 01/02/18 17:00 111/59 (103) 01/02/18 16:00 104/68 (97) 01/02/18 15:00 98/65 (92) 01/02/18 15:00 99.5 75 16 104/68 (80) 94 118/66 (83) 01/02/18 15:00 94 Room Air 01/02/18 15:00 71 01/02/18 14:00 94/61 (90) 01/02/18 13:00 99/61 (89) 01/02/18 12:00 92/57 (86) 01/02/18 11:00 94/63 (90) 01/02/18 11:00 97.9 68 16 94/63 (73) 113/62 (79) 01/02/18 11:00 70 01/02/18 11:00 94 Room Air 01/02/18 10:00 96/65 (92) Labs: Laboratory Tests Test 01/03/18 00:33 01/03/18 08:20 Activated Partial Thromboplast Time 40.6 SEC (24.3-30.1) 36.9 SEC (24.3-30.1) Platelet Function P2Y12 React Units 177 PRU (194-418) Potassium Level 4.1 MEQ/L (3.5-5.1) Magnesium Level 2.1 MG/DL (1.5-2.5) Result Diagram: 01/02/18 0324 01/03/18 0820 (1) STEMI (ST elevation myocardial infarction) (2) Ventricular fibrillation (3) Ischemic cardiomyopathy (4) On intra-aortic balloon pump assist (5) Multi-vessel coronary artery stenosis Problem Qualifiers (1) STEMI (ST elevation myocardial infarction): Qualified Codes: I21.3 - ST elevation (STEMI) myocardial infarction of unspecified site Trudi Cabrera MD Jan 03, 2018 09:45
--- NOTE | 2018-01-03 11:17 | PD.CARD.PN ---
Subjective Subjective Remarks assymptomatic in nad Objective Medications Current Medications Medications (Trade) Dose Ordered Sig/Pascual Route Start Time Stop Time Status Last Admin (NS Flush) 2 ml UNSCH PRN IV FLUSH 12/31/17 12:30 (NS Flush) 2 ml BID IV FLUSH 12/31/17 21:00 01/02/18 09:07 (Aspirin Chew) 162 mg DAILY PO 01/01/18 09:00 01/03/18 08:43 (Lipitor) 40 mg HS PO 12/31/17 21:00 01/02/18 21:26 Potassium Chloride 100 ml @ 50 mls/hr Q2H PRN IV 12/31/17 13:15 Potassium Chloride 100 ml @ 50 mls/hr Q2H PRN IV 12/31/17 13:15 (K-Lyte Cl Eff) 50 meq UNSCH PRN PO 12/31/17 13:15 Potassium Chloride 100 ml @ 25 mls/hr UNSCH PRN IV 12/31/17 13:15 Potassium Chloride 100 ml @ 50 mls/hr Q2H PRN IV 12/31/17 13:15 01/01/18 09:28 Magnesium Sulfate 4 gm/Sodium Chloride 100 ml @ 50 mls/hr UNSCH PRN IV 12/31/17 13:15 (Mag-Ox) 800 mg UNSCH PRN PO 12/31/17 13:15 Magnesium Sulfate 2 gm/Sodium Chloride 100 ml @ 50 mls/hr UNSCH PRN IV 12/31/17 13:15 12/31/17 19:00 (K-Phos) 2,000 mg Q4H PRN PO 12/31/17 13:15 12/31/17 16:11 Sodium Phosphate 30 mmol/Sodium Chloride 250 ml @ 42 mls/hr UNSCH PRN IV 12/31/17 13:15 (K-Phos) 2,000 mg UNSCH PRN PO/TUBE 12/31/17 13:15 Potassium Phosphate 30 mmol/ Sodium Chloride 260 ml @ 42 mls/hr UNSCH PRN IV 12/31/17 13:15 (Cordarone) 400 mg Q12HR PO 12/31/17 21:00 01/03/18 08:43 Cefazolin Sodium 500 mg/Sodium Chloride 505 ml @ 0 mls/hr SAAS ARCHITECT IRRIGATION 12/31/17 13:30 01/07/18 13:29 Cefazolin Sodium/ Dextrose 50 ml @ 150 mls/hr SAAS ARCHITECT IV 12/31/17 13:30 01/07/18 13:29 (Bactroban Nasal 2% Oint) 1 applic BID EACH NARE 12/31/17 13:30 01/05/18 13:29 01/03/18 08:41 (Hibiclens 4% Top Soln) 1 applic SAAS ARCHITECT TOPICAL 12/31/17 13:30 01/07/18 13:29 Insulin Human Regular 100 units/ Sodium Chloride 100 ml @ 3 mls/hr TITRATE PRN IV 12/31/17 13:30 01/07/18 13:29 (D50w (Vial) Inj) 50 ml UNSCH PRN IV PUSH 12/31/17 13:30 (Morphine Inj) 2 mg Q4H PRN SQ 12/31/17 14:00 Papaverine HCl 60 mg/Nitroglycerin 100 mcg/Verapamil HCl 100 mg/Sodium Chloride 100 ml @ 0 mls/hr SAAS [employer]CHIT[employer] IRRIGATION 12/31/17 15:30 01/07/18 13:29 Heparin Sodium/ Dextrose 250 ml @ 10 mls/hr TITRATE PRN IV 12/31/17 17:00 01/02/18 21:53 (Heparin Inj) 5,000 units UNSCH PRN IV PUSH 12/31/17 17:00 (Heparin Inj) 2,500 units UNSCH PRN IV PUSH 12/31/17 17:00 01/03/18 09:31 Amiodarone HCl 450 mg/Dextrose 250 ml @ 33.33 mls/ hr Q7H31M PRN IV 12/31/17 18:02 12/31/17 18:50 Potassium Chloride/Sodium Chloride 1,000 ml @ 50 mls/hr Q20H IV 12/31/17 18:00 01/02/18 21:57 (Lopressor Inj) 2.5 mg Q6H PRN IV PUSH 12/31/17 18:00 Potassium Chloride 100 ml @ 25 mls/hr UNSCH PRN IV 12/31/17 18:45 (Coreg) 3.125 mg Q12HR PO 01/01/18 09:00 01/03/18 08:42 (Pepcid) 20 mg BID PO 01/03/18 21:00 Vital Signs / I&O Vital Signs Date Time Temp Pulse Resp B/P (MAP) Pulse Ox O2 Delivery O2 Flow Rate FiO2 01/03/18 10:10 91/55 (82) 01/03/18 09:09 102/62 (91) 01/03/18 08:00 100/61 (92) 01/03/18 07:00 97 Room Air 01/03/18 07:00 93/58 (85) 01/03/18 07:00 98.6 92 16 93/85 (88) 97 117/57 (77) 01/03/18 07:00 70 01/03/18 06:00 96/63 (82) 01/03/18 05:01 102/68 (95) 01/03/18 04:00 94/65 (90) 01/03/18 03:40 71 01/03/18 03:40 98.4 74 18 102/66 (78) 96 117/57 (77) 01/03/18 03:40 96 Room Air 01/03/18 03:00 102/66 (94) 01/03/18 02:00 98/60 (86) 01/03/18 01:00 106/67 (98) 01/03/18 00:00 100/62 (116) 01/02/18 23:31 97 Room Air 01/02/18 23:30 72 01/02/18 23:00 105/65 (94) 01/02/18 23:00 98.4 73 20 105/65 (78) 97 135/73 (93) 01/02/18 22:00 110/67 (102) 01/02/18 21:05 21 01/02/18 21:00 100/69 (95) 01/02/18 20:00 98.0 75 20 100/65 (77) 97 117/69 (85) 01/02/18 20:00 100/65 (93) 01/02/18 19:45 97 Room Air 01/02/18 19:30 77 01/02/18 19:00 104/60 (91) 01/02/18 18:00 100/59 (91) 01/02/18 17:00 111/59 (103) 01/02/18 16:00 104/68 (97) 01/02/18 15:00 98/65 (92) 01/02/18 15:00 99.5 75 16 104/68 (80) 94 118/66 (83) 01/02/18 15:00 94 Room Air 01/02/18 15:00 71 01/02/18 14:00 94/61 (90) 01/02/18 13:00 99/61 (89) 01/02/18 12:00 92/57 (86) I/O 01/02/18 01/02/18 01/02/18 01/03/18 01/03/18 01/03/18 07:00 15:00 23:00 07:00 15:00 23:00 Intake Total 2450 ml 100 ml 1821 ml 2106 ml Output Total 3200 ml 2600 ml 2225 ml Balance -750 ml 100 ml -779 ml -119 ml Intake Oral 1200 ml 1040 ml 960 ml IV Total 1250 ml 100 ml 781 ml 1146 ml Output Urine Total 3200 ml 2600 ml 2225 ml # Bowel Movements 0 0 0 Physical Exam GENERAL: SKIN: Warm and dry. HEAD: Normocephalic. EYES: No scleral icterus. No injection or drainage. NECK: Supple, trachea midline. No JVD or lymphadenopathy. CARDIOVASCULAR: Regular rate and rhythm without murmurs, gallops, or rubs. RESPIRATORY: Breath sounds equal bilaterally. No accessory muscle use. GASTROINTESTINAL: Abdomen soft, non-tender, nondistended. MUSCULOSKELETAL: No cyanosis, or edema. BACK: Nontender without obvious deformity. No CVA tenderness. Laboratory Laboratory Tests Test 01/02/18 17:53 01/03/18 00:33 01/03/18 08:20 Activated Partial Thromboplast Time 42.4 SEC 40.6 SEC 36.9 SEC Platelet Function P2Y12 React Units 177 PRU Potassium Level 4.1 MEQ/L Magnesium Level 2.1 MG/DL Assessment and Plan Problem List: (1) STEMI (ST elevation myocardial infarction) ICD Codes: I21.3 - ST elevation (STEMI) myocardial infarction of unspecified site Status: Acute (2) Ventricular fibrillation ICD Codes: I49.01 - Ventricular fibrillation (3) Ischemic cardiomyopathy ICD Codes: I25.5 - Ischemic cardiomyopathy (4) On intra-aortic balloon pump assist ICD Codes: Z98.890 - Other specified postprocedural states (5) Multi-vessel coronary artery stenosis ICD Codes: I25.10 - Atherosclerotic heart disease of [place] coronary artery without angina pectoris Assessment and Plan 1.) pod # 3 primary pci lad, ekg changes resolved, ef=30-35% with akinetic apex on echo, d/w Dr Mcfadden who read echo, continue aspirin, iv hep, iabp, coreg, amio; effient held per ct surg, platelet activity remains too low for cabg now, plan is to recheck 01/04/18, continue iabp, d/w patient, nurse and Dr mclaughlin 01/03 Problem Qualifiers (1) STEMI (ST elevation myocardial infarction): Qualified Codes: I21.3 - ST elevation (STEMI) myocardial infarction of unspecified site Puma Sullivan MD Jan 03, 2018 11:17
[2018-01-03] MEDS: HEPARIN 25,000 UNITS-D5W 250 ML - PREMIX IV PRN (14:57)
[2018-01-03] MEDS: NS + KCL 40 MEQ INJ 1,000 ML IV SCH (20:01)
[2018-01-03] MEDS: ATORVASTATIN 40 MG TAB PO SCH (21:36)
[2018-01-03] MEDS: FAMOTIDINE 20 MG TAB PO SCH (21:36)
[2018-01-04] VITALS (10 sets, daily range): BP systolic 92–122; BP diastolic 59–74; PULSE 60–72; RESP 18; TEMP 97.9–99.5; O2SAT 95–97
[2018-01-04 04:40] LABS: AST (GOT) 42 U/L (15-37); BICARBONATE 22.4 MEQ/L (21.0-32.0); BLOOD UREA NITROGEN 14 MG/DL (7-18); CALCIUM 8.8 MG/DL (8.5-10.1); CHLORIDE 105 MEQ/L (98-107); CREATININE 0.85 MG/DL (0.60-1.30); GLOMERULAR FILTRATION RATE 90 ML/MIN (>89); GLUCOSE,RANDOM 124 MG/DL (74-106); MAGNESIUM 2.2 MG/DL (1.5-2.5); SODIUM (NA) 138 MEQ/L (136-145)
[2018-01-04 04:45] LABS: ALKALINE PHOSPHATASE 83 U/L (45-117); ALT (GPT) 52 U/L (12-78); TOTAL BILIRUBIN ADULT 0.9 MG/DL (0.2-1.0); TOTAL PROTEIN 6.6 GM/DL (6.4-8.2)
[2018-01-04] MEDS: HEPARIN 25,000 UNITS-D5W 250 ML - PREMIX IV PRN ×2 (05:48→21:53)
[2018-01-04] MEDS: AMIODARONE 200 MG TAB PO SCH ×2 (09:02→21:44)
[2018-01-04] MEDS: FAMOTIDINE 20 MG TAB PO SCH ×2 (09:02→21:44)
[2018-01-04] MEDS: CARVEDILOL 3.125 MG TAB PO SCH ×2 (09:02→21:44)
[2018-01-04] MEDS: MUPIROCIN 2% OINT 1 APPLIC/GM SYR EACH NARE SCH ×2 (09:02→21:44)
[2018-01-04] MEDS: SODIUM CHLORIDE 0.9% FLUSH 10 ML FLUSH IV FLUSH SCH ×2 (09:02→21:44)
--- NOTE | 2018-01-04 09:08 | HHI.CCPN ---
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 Apparently he rode bike 5 miles back to the car and presented to the emergency department. Stat EKG showed anterolateral ST elevations and a STEMI alert was called. 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 He has no previous history of coronary artery disease or any other significant coronary artery risk factors other than age and sex. Cardiac catheterization by Dr. Sullivan showed occluded mid left anterior descending to be the culprit lesion, a bare-metal stent was placed. Patient was also found to have three-vessel coronary artery disease and ischemic cardiomyopathy with EF 25-30% with severe hypokinesis to akinesis of the inferoapical and distal anteroapical wall. Patient was continued on IV heparin, Aggrastat was started IV. Patient was also loaded with Effient. Dr. Sullivan placed IABP after PCI and stent. CT surgery was consulted for three-vessel coronary artery disease for CABG evaluation. I evaluated the patient in the ICU. He is lying on bed denies any chest pain at this time, mildly anxious. IABP in place without hematoma at the insertion site-intermittently augmenting well. Cardiac catheterization site at right groin also without any hematoma. According to Dr. Sullivan patient had reperfusion arrhythmia/ventricular fibrillation in [employer] or leak [employer] which needed cardioversion x2. Will start on IV amiodarone per Dr. Vicente. I will also add carvedilol 3.125 mg twice daily, and Lipitor SUBJ 01/01: Currently appears comfortable, no further sustained VTAC, minimal PVCs, and paroxysmal a fib. IABP with good augmentation. Remains on IV Heparin. IV Aggrastat, and IV Amiodarone. 01/02: Lying in bed comfortably no further arrhythmias. Denies chest. IABP remains in place. 2D echo showed EF 30-35%. The basal inferior wall is scarred and akientic. The distal anteroseptum and entire apex is akinetic. CABG eval/plan per CTS 01/03: Denies chest pain no arrhythmias. IABP still Augmentin well. Possible removal today. CABG tentatively planned for Thursday per Dr. Cabrera 01/04 No events overnight. Awake and alert. On IABP 1:1. Heparin drip. Objective Vital Signs Date Time Temp Pulse Resp B/P (MAP) Pulse Ox O2 Delivery O2 Flow Rate FiO2 01/04/18 07:36 98.2 64 18 97/67 (77) 97 Automatic Cuff 01/04/18 07:34 Room Air 01/02/18 21:05 21 12/31/17 10:45 2.00 Intake and Output 01/04/18 01/04/18 01/05/18 08:00 16:00 00:00 Intake Total 1256 ml Output Total 1300 ml Balance -44 ml Result Diagram: 01/02/18 0324 01/04/18 0319 Other Results Laboratory Tests Test 01/03/18 14:34 01/03/18 20:10 01/04/18 03:19 Activated Partial Thromboplast Time 43.4 SEC 37.6 SEC 55.6 SEC Platelet Function P2Y12 React Units 154 PRU Blood Urea Nitrogen 14 MG/DL Creatinine 0.85 MG/DL Random Glucose 124 MG/DL Total Protein 6.6 GM/DL Albumin 3.0 GM/DL Calcium Level 8.8 MG/DL Magnesium Level 2.2 MG/DL Alkaline Phosphatase 83 U/L Aspartate Amino Transf (AST/SGOT) 42 U/L Alanine Aminotransferase (ALT/SGPT) 52 U/L Total Bilirubin 0.9 MG/DL Sodium Level 138 MEQ/L Potassium Level 4.2 MEQ/L Chloride Level 105 MEQ/L Carbon Dioxide Level 22.4 MEQ/L Anion Gap 11 MEQ/L Estimat Glomerular Filtration Rate 90 ML/MIN Imaging Last Impressions Lower Extremity Ultrasound 01/02/18 Signed Impressions: CONCLUSION: 1. The study is negative for lower extremity deep venous thrombosis. Chest X-Ray 01/01/18 Signed Impressions: CONCLUSION: No acute cardiopulmonary abnormality is identified for technique. Carotid Artery Ultrasound 12/31/17 Signed Impressions: CONCLUSION: 1. Right Internal Carotid Artery: Findings indicate <50% stenosis. 2. Left Internal Carotid Artery: Findings indicate <50% stenosis. Abdomen X-Ray 12/31/17 Signed Impressions: CONCLUSION: It appears the tip of the aortic balloon pump is projecting over the left aspec t of the L2 vertebral body. This would be in the mid abdominal aorta. Objective Remarks GENERAL: Awake and alert, in no distress. Denies chest pain SKIN: Warm/dry. HEAD: Atraumatic. Normocephalic. EYES: Pupils equal and round. No scleral icterus. ENT: Mucous membranes. NECK: Trachea midline. No JVD. CARDIOVASCULAR: Regular rate and rhythm. No murmur appreciated, IABP augmenting well RESPIRATORY: No accessory muscle use. Clear to auscultation. Breath sounds equal bilaterally. GASTROINTESTINAL: Abdomen soft, non-tender, nondistended. MUSCULOSKELETAL: Right groin cath site without hematoma. Left groin IABP incision site without hematoma. Peripheral pulses are palpable NEUROLOGICAL: Awake and alert. No obvious cranial nerve deficits. Motor grossly within normal limits. Normal speech. In good spirits A/P Assessment and Plan NEURO: -As needed morphine for pain -Awake and alert RESP: -Nasal cannula oxygen, if needed to keep sats above 92% -Aggressive pulmonary toilet CV: Acute STEMI Ischemic cardiomyopathy Reperfusion arrhythmia/ventricular fibrillation Multivessel coronary artery disease -Patient is status post cardiac catheterization and BMS to the LAD (cath showed 3 vessel CAD with RCA and LAD occlusion, EF 30%) -2D echo showed EF 30-35%. The basal inferior wall is scarred and akinetic. The distal anteroseptum and entire apex is akinetic. -CABG plan per CTS tentatively planned for Thursday or Thursday -Continue aspirin daily. Post PCI/stent placed on Effient, placed on hold by CTS for possible CABG -Completed IV Aggrastat, continue IV heparin -IABP with one-to-one augmentation-possible removal today -Continue p.o. amiodarone 400 mg p.o. twice daily -Carvedilol 3.125 mg every 12 -Lipitor 40 mg nightly GI: -IV famotidine for GI prophylaxis : -Monitor renal function , electrolytes replacement per protocol. ID: -Periprocedural antibiotics per cardiology -Monitor for signs of infections ( Fever, WBC) HEME: -Monitor CBC, CMP, coags ENDO: -SSI if needed for glycemic control. PROPH: -IV heparin, IV famotidine LINES: -Utilize peripheral IVs, central line if needed Level [address] Cabrera and nursing staff. Bolivar Jung MD Jan 04, 2018 09:08
--- NOTE | 2018-01-04 09:08 | PD.CAR.PN ---
CVT Progress Note Subjective/Hospital Course: 01/01/18 Stable. Denies chest pain and ectopy has resolved with amiodarone. ECHO - pending 01/02 Doing well. No CP Lengthy discussion with the pt regarding clinical and angiographic findings Plan OR Thursday afternoon or Thursday Will decide about potential removal of the IABP tomorrow 01/03 Planned OR tomorrow, however, his platelet function still very abnormal. Will hold off on OR until function normalizes. Will recheck PRU in am again 01/04 Platelet function remains grossly abnormal OK to D/C IABP from my standpoint Recheck PRU this week Objective: Vital Signs Date Time Temp Pulse Resp B/P (MAP) Pulse Ox O2 Delivery O2 Flow Rate FiO2 01/04/18 07:36 98.2 64 18 97/67 (77) 97 Automatic Cuff 01/04/18 07:35 64 01/04/18 07:34 97 Room Air 01/04/18 07:29 97/63 (94) 01/04/18 06:00 91/57 (94) 01/04/18 05:01 86/51 (77) 01/04/18 04:00 99.2 60 18 93/60 (71) 97 112/60 (77) 01/04/18 04:00 93/60 (92) 01/04/18 03:30 97 Room Air 01/04/18 03:00 100/57 (92) 01/04/18 03:00 66 01/04/18 02:00 95/56 (85) 01/04/18 01:00 89/56 (82) 01/04/18 00:00 97 Room Air 01/04/18 00:00 92/59 (87) 01/04/18 00:00 99.5 66 18 92/59 (70) 95 116/63 (80) 01/03/18 23:00 66 01/03/18 23:00 90/57 (85) 01/03/18 22:00 96/55 (85) 01/03/18 21:00 104/63 (95) 01/03/18 20:00 109/64 (96) 01/03/18 20:00 99.8 66 20 104/64 (77) 97 118/60 (79) 01/03/18 19:45 97 Room Air 01/03/18 19:00 97/62 (94) 01/03/18 19:00 66 01/03/18 18:06 90/63 (82) 01/03/18 17:00 97/61 (92) 01/03/18 16:12 97/59 (91) 01/03/18 15:00 99.8 64 18 97/59 (72) 95 114/65 (81) 01/03/18 15:00 97/59 (87) 01/03/18 15:00 60 01/03/18 15:00 96 Room Air 01/03/18 14:00 91/58 (84) 01/03/18 13:00 95/58 (84) 01/03/18 12:11 93/57 (86) 01/03/18 11:00 97/60 (89) 01/03/18 11:00 96 Room Air 01/03/18 11:00 65 01/03/18 11:00 98.7 74 18 97/60 (72) 96 106/59 (75) 01/03/18 10:10 91/55 (82) 01/03/18 09:09 102/62 (91) Labs: Laboratory Tests Test 01/04/18 03:19 Activated Partial Thromboplast Time 55.6 SEC (24.3-30.1) Platelet Function P2Y12 React Units 154 PRU (194-418) Blood Urea Nitrogen 14 MG/DL (7-18) Creatinine 0.85 MG/DL (0.60-1.30) Random Glucose 124 MG/DL (74-106) Total Protein 6.6 GM/DL (6.4-8.2) Albumin 3.0 GM/DL (3.4-5.0) Calcium Level 8.8 MG/DL (8.5-10.1) Magnesium Level 2.2 MG/DL (1.5-2.5) Alkaline Phosphatase 83 U/L (45-117) Aspartate Amino Transf (AST/SGOT) 42 U/L (15-37) Alanine Aminotransferase (ALT/SGPT) 52 U/L (12-78) Total Bilirubin 0.9 MG/DL (0.2-1.0) Sodium Level 138 MEQ/L (136-145) Potassium Level 4.2 MEQ/L (3.5-5.1) Chloride Level 105 MEQ/L (98-107) Carbon Dioxide Level 22.4 MEQ/L (21.0-32.0) Anion Gap 11 MEQ/L (5-15) Estimat Glomerular Filtration Rate 90 ML/MIN (>89) Result Diagram: 01/02/18 0324 01/04/18 0319 (1) STEMI (ST elevation myocardial infarction) (2) Ventricular fibrillation (3) Ischemic cardiomyopathy (4) On intra-aortic balloon pump assist (5) Multi-vessel coronary artery stenosis Problem Qualifiers (1) STEMI (ST elevation myocardial infarction): Qualified Codes: I21.3 - ST elevation (STEMI) myocardial infarction of unspecified site Trudi Carbera MD Jan 04, 2018 09:08
--- NOTE | 2018-01-04 11:23 | PD.CAR.PN ---
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 He was riding his bike this morning and developed chest pain at approximately 11 a.m. He rode his bike 5 miles back to his car, drove himself to the ER. He was found to have an anterior injury pattern on EKG. STEMI was called. The patient was emergently transported to the [facility] [place]. Maximum chest pain was 6/10. He has no previous history of coronary artery disease or any other significant coronary artery risk factors other than age and sex. Cardiac catheterization by Dr. Sullivan showed occluded mid left anterior descending to be the culprit lesion, a bare-metal stent was placed. Patient was also found to have three-vessel coronary artery disease and ischemic cardiomyopathy with EF 25-30% with severe hypokinesis to akinesis of the inferoapical and distal anteroapical wall. Patient was continued on IV heparin, Aggrastat was started IV. Patient was also loaded with Effient. Dr. uSllivan placed IABP after PCI and stent. CT surgery was consulted for three-vessel coronary artery disease for CABG evaluation Per [facility] note , pt had reperfusion arrhythmia/ventricular fibrillation in lab[employer] [place] which needed cardioversion x2. started on IV amiodarone EF 35% 01/01/18 Stable. Denies chest pain and ectopy has resolved with amiodarone. ECHO - pending 01/02 Doing well. No CP Lengthy discussion with the pt regarding clinical and angiographic findings Plan OR Thursday afternoon or Thursday Will decide about potential removal of the IABP tomorrow 01/03 Planned OR tomorrow, however, his platelet function still very abnormal. Will hold off on OR until function normalizes. Will recheck PRU in am again 01/04 Platelet function remains grossly abnormal OK to D/C IABP from my standpoint Recheck PRU this week Objective: GENERAL: SKIN: Warm and dry. HEAD: Normocephalic. EYES: No scleral icterus. No injection or drainage. NECK: Supple, trachea midline. No JVD or lymphadenopathy. CARDIOVASCULAR: Regular rate and rhythm without murmurs, gallops, or rubs. RESPIRATORY: Breath sounds equal bilaterally. No accessory muscle use. GASTROINTESTINAL: Abdomen soft, non-tender, nondistended. MUSCULOSKELETAL: No cyanosis, or edema. BACK: Nontender without obvious deformity. No CVA tenderness. Vital Signs Date Time Temp Pulse Resp B/P (MAP) Pulse Ox O2 Delivery O2 Flow Rate FiO2 01/04/18 11:12 69 01/04/18 11:11 97 Room Air 01/04/18 11:09 97.9 67 18 115/74 (88) 97 01/04/18 09:51 Arterial Line 01/04/18 07:36 98.2 64 18 97/67 (77) 97 Automatic Cuff 01/04/18 07:35 64 01/04/18 07:34 97 Room Air 01/04/18 07:29 97/63 (94) 01/04/18 06:00 91/57 (94) 01/04/18 05:01 86/51 (77) 01/04/18 04:00 99.2 60 18 93/60 (71) 97 112/60 (77) 01/04/18 04:00 93/60 (92) 01/04/18 03:30 97 Room Air 01/04/18 03:00 100/57 (92) 01/04/18 03:00 66 01/04/18 02:00 95/56 (85) 01/04/18 01:00 89/56 (82) 01/04/18 00:00 97 Room Air 01/04/18 00:00 92/59 (87) 01/04/18 00:00 99.5 66 18 92/59 (70) 95 116/63 (80) 01/03/18 23:00 66 01/03/18 23:00 90/57 (85) 01/03/18 22:00 96/55 (85) 01/03/18 21:00 104/63 (95) 01/03/18 20:00 109/64 (96) 01/03/18 20:00 99.8 66 20 104/64 (77) 97 118/60 (79) 01/03/18 19:45 97 Room Air 01/03/18 19:00 97/62 (94) 01/03/18 19:00 66 01/03/18 18:06 90/63 (82) 01/03/18 17:00 97/61 (92) 01/03/18 16:12 97/59 (91) 01/03/18 15:00 99.8 64 18 97/59 (72) 95 114/65 (81) 01/03/18 15:00 97/59 (87) 01/03/18 15:00 60 01/03/18 15:00 96 Room Air 01/03/18 14:00 91/58 (84) 01/03/18 13:00 95/58 (84) 01/03/18 12:11 93/57 (86) Labs: Laboratory Tests Test 01/04/18 03:19 Activated Partial Thromboplast Time 55.6 SEC (24.3-30.1) Platelet Function P2Y12 React Units 154 PRU (194-418) Blood Urea Nitrogen 14 MG/DL (7-18) Creatinine 0.85 MG/DL (0.60-1.30) Random Glucose 124 MG/DL (74-106) Total Protein 6.6 GM/DL (6.4-8.2) Albumin 3.0 GM/DL (3.4-5.0) Calcium Level 8.8 MG/DL (8.5-10.1) Magnesium Level 2.2 MG/DL (1.5-2.5) Alkaline Phosphatase 83 U/L (45-117) Aspartate Amino Transf (AST/SGOT) 42 U/L (15-37) Alanine Aminotransferase (ALT/SGPT) 52 U/L (12-78) Total Bilirubin 0.9 MG/DL (0.2-1.0) Sodium Level 138 MEQ/L (136-145) Potassium Level 4.2 MEQ/L (3.5-5.1) Chloride Level 105 MEQ/L (98-107) Carbon Dioxide Level 22.4 MEQ/L (21.0-32.0) Anion Gap 11 MEQ/L (5-15) Estimat Glomerular Filtration Rate 90 ML/MIN (>89) Result Diagram: 01/02/18 0324 01/04/18 0319 (1) STEMI (ST elevation myocardial infarction) (2) Ventricular fibrillation (3) Ischemic cardiomyopathy (4) On intra-aortic balloon pump assist (5) Multi-vessel coronary artery stenosis Problem Qualifiers (1) STEMI (ST elevation myocardial infarction): Qualified Codes: I21.3 - ST elevation (STEMI) myocardial infarction of unspecified site Bing Clarke Jan 04, 2018 11:23
[2018-01-04 12:16] LABS: AUTOMATED NEUTROPHIL # 5.9 TH/MM3 (1.8-7.7); BASOPHIL % 0.3 % (0.0-2.0); EOSINOPHIL # 0.3 TH/MM3 (0-0.4); EOSINOPHIL % 4.1 % (0.0-4.0); HEMATOCRIT 41.1 % (39.0-51.0); HEMOGLOBIN 14.3 GM/DL (13.0-17.0); LYMPH % 14.4 % (9.0-44.0); LYMPHOCYTE # 1.1 TH/MM3 (1.0-4.8); MEAN CELL VOLUME 87.4 FL (80.0-100.0); MEAN CORPUSCULAR HEMOGLOBIN 30.4 PG (27.0-34.0); MEAN CORPUSCULAR HGB CONC 34.7 % (32.0-36.0); MEAN PLATELET VOLUME 9.1 FL (7.0-11.0); MONO % 7.6 % (0.0-8.0); MONOCYTE # 0.6 TH/MM3 (0-0.9); NEUT % 73.6 % (16.0-70.0); PLATELET COUNT 184 TH/MM3 (150-450); RED BLOOD COUNT 4.71 MIL/MM3 (4.50-5.90); RED CELL DISTRIBUTION WIDTH 13.3 % (11.6-17.2)
--- NOTE | 2018-01-04 17:04 | PD.CARD.PN ---
Subjective Subjective Remarks assymptomatic in nad Objective Medications Current Medications Medications (Trade) Dose Ordered Sig/Pascual Route Start Time Stop Time Status Last Admin (NS Flush) 2 ml UNSCH PRN IV FLUSH 12/31/17 12:30 (NS Flush) 2 ml BID IV FLUSH 12/31/17 21:00 01/04/18 09:02 (Aspirin Chew) 162 mg DAILY PO 01/01/18 09:00 Future Hold 01/03/18 08:43 (Lipitor) 40 mg HS PO 12/31/17 21:00 01/03/18 21:36 Potassium Chloride 100 ml @ 50 mls/hr Q2H PRN IV 12/31/17 13:15 Potassium Chloride 100 ml @ 50 mls/hr Q2H PRN IV 12/31/17 13:15 (K-Lyte Cl Eff) 50 meq UNSCH PRN PO 12/31/17 13:15 Potassium Chloride 100 ml @ 25 mls/hr UNSCH PRN IV 12/31/17 13:15 Potassium Chloride 100 ml @ 50 mls/hr Q2H PRN IV 12/31/17 13:15 01/01/18 09:28 Magnesium Sulfate 4 gm/Sodium Chloride 100 ml @ 50 mls/hr UNSCH PRN IV 12/31/17 13:15 (Mag-Ox) 800 mg UNSCH PRN PO 12/31/17 13:15 Magnesium Sulfate 2 gm/Sodium Chloride 100 ml @ 50 mls/hr UNSCH PRN IV 12/31/17 13:15 12/31/17 19:00 (K-Phos) 2,000 mg Q4H PRN PO 12/31/17 13:15 12/31/17 16:11 Sodium Phosphate 30 mmol/Sodium Chloride 250 ml @ 42 mls/hr UNSCH PRN IV 12/31/17 13:15 (K-Phos) 2,000 mg UNSCH PRN PO/TUBE 12/31/17 13:15 Potassium Phosphate 30 mmol/ Sodium Chloride 260 ml @ 42 mls/hr UNSCH PRN IV 12/31/17 13:15 (Cordarone) 400 mg Q12HR PO 12/31/17 21:00 01/04/18 09:02 Cefazolin Sodium 500 mg/Sodium Chloride 505 ml @ 0 mls/hr OVERSEAMER IRRIGATION 12/31/17 13:30 01/07/18 13:29 Cefazolin Sodium/ Dextrose 50 ml @ 150 mls/hr OVERSEAMER IV 12/31/17 13:30 01/07/18 13:29 (Bactroban Nasal 2% Oint) 1 applic BID EACH NARE 12/31/17 13:30 01/05/18 13:29 01/04/18 09:02 (Hibiclens 4% Top Soln) 1 applic OVERSEAMER TOPICAL 12/31/17 13:30 01/07/18 13:29 Insulin Human Regular 100 units/ Sodium Chloride 100 ml @ 3 mls/hr TITRATE PRN IV 12/31/17 13:30 01/07/18 13:29 (D50w (Vial) Inj) 50 ml UNSCH PRN IV PUSH 12/31/17 13:30 (Morphine Inj) 2 mg Q4H PRN SQ 12/31/17 14:00 Papaverine HCl 60 mg/Nitroglycerin 100 mcg/Verapamil HCl 100 mg/Sodium Chloride 100 ml @ 0 mls/hr OVERSEAMER IRRIGATION 12/31/17 15:30 01/07/18 13:29 Heparin Sodium/ Dextrose 250 ml @ 10 mls/hr TITRATE PRN IV 12/31/17 17:00 01/04/18 05:48 (Heparin Inj) 5,000 units UNSCH PRN IV PUSH 12/31/17 17:00 (Heparin Inj) 2,500 units UNSCH PRN IV PUSH 12/31/17 17:00 01/03/18 21:32 Amiodarone HCl 450 mg/Dextrose 250 ml @ 33.33 mls/ hr Q7H31M PRN IV 12/31/17 18:02 12/31/17 18:50 (Lopressor Inj) 2.5 mg Q6H PRN IV PUSH 12/31/17 18:00 Potassium Chloride 100 ml @ 25 mls/hr UNSCH PRN IV 12/31/17 18:45 (Coreg) 3.125 mg Q12HR PO 01/01/18 09:00 01/04/18 09:02 (Pepcid) 20 mg BID PO 01/03/18 21:00 01/04/18 09:02 Vital Signs / I&O Vital Signs Date Time Temp Pulse Resp B/P (MAP) Pulse Ox O2 Delivery O2 Flow Rate FiO2 01/04/18 15:15 67 01/04/18 15:14 97 Room Air 01/04/18 15:11 97.9 67 18 122/60 (80) 97 01/04/18 11:12 69 01/04/18 11:11 97 Room Air 01/04/18 11:09 97.9 67 18 115/74 (88) 97 01/04/18 09:51 Arterial Line 01/04/18 07:36 98.2 64 18 97/67 (77) 97 Automatic Cuff 01/04/18 07:35 64 01/04/18 07:34 97 Room Air 01/04/18 07:29 97/63 (94) 01/04/18 06:00 91/57 (94) 01/04/18 05:01 86/51 (77) 01/04/18 04:00 99.2 60 18 93/60 (71) 97 112/60 (77) 01/04/18 04:00 93/60 (92) 01/04/18 03:30 97 Room Air 01/04/18 03:00 100/57 (92) 01/04/18 03:00 66 01/04/18 02:00 95/56 (85) 01/04/18 01:00 89/56 (82) 01/04/18 00:00 97 Room Air 01/04/18 00:00 92/59 (87) 01/04/18 00:00 99.5 66 18 92/59 (70) 95 116/63 (80) 01/03/18 23:00 66 01/03/18 23:00 90/57 (85) 01/03/18 22:00 96/55 (85) 01/03/18 21:00 104/63 (95) 01/03/18 20:00 109/64 (96) 01/03/18 20:00 99.8 66 20 104/64 (77) 97 118/60 (79) 01/03/18 19:45 97 Room Air 01/03/18 19:00 97/62 (94) 01/03/18 19:00 66 01/03/18 18:06 90/63 (82) I/O 01/03/18 01/03/18 01/03/18 01/04/18 01/04/18 01/04/18 07:00 15:00 23:00 07:00 15:00 23:00 Intake Total 2106 ml 2006 ml 1256 ml 190 ml 1200 ml Output Total 2225 ml 2300 ml 1300 ml 1300 ml Balance -119 ml -294 ml -44 ml 190 ml -100 ml Intake Oral 960 ml 1200 ml 480 ml 1200 ml IV Total 1146 ml 806 ml 776 ml 190 ml Output Urine Total 2225 ml 2300 ml 1300 ml 1300 ml Stool Total 0 ml # Bowel Movements 0 0 0 Physical Exam GENERAL: SKIN: Warm and dry. HEAD: Normocephalic. EYES: No scleral icterus. No injection or drainage. NECK: Supple, trachea midline. No JVD or lymphadenopathy. CARDIOVASCULAR: Regular rate and rhythm without murmurs, gallops, or rubs. RESPIRATORY: Breath sounds equal bilaterally. No accessory muscle use. GASTROINTESTINAL: Abdomen soft, non-tender, nondistended. MUSCULOSKELETAL: No cyanosis, or edema. BACK: Nontender without obvious deformity. No CVA tenderness. Laboratory Laboratory Tests Test 01/03/18 20:10 01/04/18 03:19 01/04/18 11:00 01/04/18 11:24 Activated Partial Thromboplast Time 37.6 SEC 55.6 SEC 47.1 SEC Platelet Function P2Y12 React Units 154 PRU Blood Urea Nitrogen 14 MG/DL Creatinine 0.85 MG/DL Random Glucose 124 MG/DL Total Protein 6.6 GM/DL Albumin 3.0 GM/DL Calcium Level 8.8 MG/DL Magnesium Level 2.2 MG/DL Alkaline Phosphatase 83 U/L Aspartate Amino Transf (AST/SGOT) 42 U/L Alanine Aminotransferase (ALT/SGPT) 52 U/L Total Bilirubin 0.9 MG/DL Sodium Level 138 MEQ/L Potassium Level 4.2 MEQ/L Chloride Level 105 MEQ/L Carbon Dioxide Level 22.4 MEQ/L Anion Gap 11 MEQ/L Estimat Glomerular Filtration Rate 90 ML/MIN White Blood Count 8.0 TH/MM3 Red Blood Count 4.71 MIL/MM3 Hemoglobin 14.3 GM/DL Hematocrit 41.1 % Mean Corpuscular Volume 87.4 FL Mean Corpuscular Hemoglobin 30.4 PG Mean Corpuscular Hemoglobin Concent 34.7 % Red Cell Distribution Width 13.3 % Platelet Count 184 TH/MM3 Mean Platelet Volume 9.1 FL Neutrophils (%) (Auto) 73.6 % Lymphocytes (%) (Auto) 14.4 % Monocytes (%) (Auto) 7.6 % Eosinophils (%) (Auto) 4.1 % Basophils (%) (Auto) 0.3 % Neutrophils # (Auto) 5.9 TH/MM3 Lymphocytes # (Auto) 1.1 TH/MM3 Monocytes # (Auto) 0.6 TH/MM3 Eosinophils # (Auto) 0.3 TH/MM3 Basophils # (Auto) 0.0 TH/MM3 CBC Comment DIFF FINAL Differential Comment Assessment and Plan Problem List: (1) STEMI (ST elevation myocardial infarction) ICD Codes: I21.3 - ST elevation (STEMI) myocardial infarction of unspecified site Status: Acute (2) Ventricular fibrillation ICD Codes: I49.01 - Ventricular fibrillation (3) Ischemic cardiomyopathy ICD Codes: I25.5 - Ischemic cardiomyopathy (4) On intra-aortic balloon pump assist ICD Codes: Z98.890 - Other specified postprocedural states (5) Multi-vessel coronary artery stenosis ICD Codes: I25.10 - Atherosclerotic heart disease of [place] coronary artery without angina pectoris Assessment and Plan 1.) pod # 4 primary pci lad, ekg changes resolved, ef=30-35% with akinetic apex on echo, d/w Dr Mcfadden who read echo, continue aspirin, iv hep, coreg, amio; effient held per ct surg, platelet activity remains too low for cabg now, plan is to recheck 01/05/18, iabp out, d/w patient, nurse and Dr mclaughlin 01/04/18 Problem Qualifiers (1) STEMI (ST elevation myocardial infarction): Qualified Codes: I21.3 - ST elevation (STEMI) myocardial infarction of unspecified site Puma Sullivan MD Jan 04, 2018 17:04
[2018-01-04] MEDS: ATORVASTATIN 40 MG TAB PO SCH (21:44)
[2018-01-05] VITALS (12 sets, daily range): BP systolic 110–143; BP diastolic 64–79; PULSE 57–76; RESP 16–20; TEMP 97.7–98.5; O2SAT 96–98
[2018-01-05 04:09] LABS: AUTOMATED NEUTROPHIL # 6.2 TH/MM3 (1.8-7.7); BASOPHIL % 0.5 % (0.0-2.0); EOSINOPHIL # 0.4 TH/MM3 (0-0.4); EOSINOPHIL % 4.8 % (0.0-4.0); HEMATOCRIT 39.8 % (39.0-51.0); HEMOGLOBIN 13.7 GM/DL (13.0-17.0); LYMPH % 15.3 % (9.0-44.0); LYMPHOCYTE # 1.4 TH/MM3 (1.0-4.8); MEAN CELL VOLUME 87.8 FL (80.0-100.0); MEAN CORPUSCULAR HEMOGLOBIN 30.3 PG (27.0-34.0); MEAN CORPUSCULAR HGB CONC 34.5 % (32.0-36.0); MEAN PLATELET VOLUME 8.6 FL (7.0-11.0); MONO % 9.8 % (0.0-8.0); MONOCYTE # 0.9 TH/MM3 (0-0.9); NEUT % 69.6 % (16.0-70.0); PLATELET COUNT 188 TH/MM3 (150-450); RED BLOOD COUNT 4.53 MIL/MM3 (4.50-5.90); RED CELL DISTRIBUTION WIDTH 13.4 % (11.6-17.2); WHITE BLOOD COUNT 8.9 TH/MM3 (4.0-11.0)
[2018-01-05 04:32] LABS: BICARBONATE 23.8 MEQ/L (21.0-32.0); CALCIUM 8.7 MG/DL (8.5-10.1); CREATININE 0.9 MG/DL (0.60-1.30); MAGNESIUM 2.1 MG/DL (1.5-2.5); PHOSPHORUS 3.8 MG/DL (2.5-4.9)
[2018-01-05 04:34] LABS: INTERNATIONAL NORMALIZED RATIO 1.1 RATIO; PROTHROMBIN TIME - PATIENT 10.7 SEC (9.8-11.6)
--- NOTE | 2018-01-05 08:20 | HHI.CCPN ---
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 Apparently he rode bike 5 miles back to the car and presented to the emergency department. Stat EKG showed anterolateral ST elevations and a STEMI alert was called. He was given aspirin and was emergently taken to the blood and plasma laboratory assistant. He has no previous history of coronary artery disease or any other significant coronary artery risk factors other than age and sex. Cardiac catheterization by Dr. Sullivan showed occluded mid left anterior descending to be the culprit lesion, a bare-metal stent was placed. Patient was also found to have three-vessel coronary artery disease and ischemic cardiomyopathy with EF 25-30% with severe hypokinesis to akinesis of the inferoapical and distal anteroapical wall. Patient was continued on IV heparin, Aggrastat was started IV. Patient was also loaded with Effient. Dr. Sullivan placed IABP after PCI and stent. CT surgery was consulted for three-vessel coronary artery disease for CABG evaluation. I evaluated the patient in the ICU. He is lying on bed denies any chest pain at this time, mildly anxious. IABP in place without hematoma at the insertion site-intermittently augmenting well. Cardiac catheterization site at right groin also without any hematoma. According to Dr. Sullivan patient had reperfusion arrhythmia/ventricular fibrillation in blood and plasma laboratory assistant which needed cardioversion x2. Will start on IV amiodarone per Dr. Vicente. I will also add carvedilol 3.125 mg twice daily, and Lipitor SUBJ 01/01: Currently appears comfortable, no further sustained VTAC, minimal PVCs, and paroxysmal a fib. IABP with good augmentation. Remains on IV Heparin. IV Aggrastat, and IV Amiodarone. 01/02: Lying in bed comfortably no further arrhythmias. Denies chest. IABP remains in place. 2D echo showed EF 30-35%. The basal inferior wall is scarred and akientic. The distal anteroseptum and entire apex is akinetic. CABG eval/plan per CTS 01/03: Denies chest pain no arrhythmias. IABP still Augmentin well. Possible removal today. CABG tentatively planned for Thursday per Dr. Cabrera 01/04 No events overnight. Awake and alert. On IABP 1:1. Heparin drip. 01/05 No events overnight. IABP d/c yesterday awaiting CABG. On Heparin drip. Objective Vital Signs Date Time Temp Pulse Resp B/P (MAP) Pulse Ox O2 Delivery O2 Flow Rate FiO2 01/05/18 07:36 97.8 76 18 121/64 (83) 96 01/05/18 07:34 Room Air 01/02/18 21:05 21 Intake and Output 01/05/18 01/05/18 01/06/18 08:00 16:00 00:00 Intake Total 426 ml Output Total 850 ml Balance -424 ml Result Diagram: 01/05/18 0342 01/05/18 0342 Other Results Laboratory Tests Test 01/04/18 11:00 01/04/18 11:24 01/04/18 22:30 01/05/18 03:42 Activated Partial Thromboplast Time 47.1 SEC 41.1 SEC 41.7 SEC White Blood Count 8.0 TH/MM3 8.9 TH/MM3 Red Blood Count 4.71 MIL/MM3 4.53 MIL/MM3 Hemoglobin 14.3 GM/DL 13.7 GM/DL Hematocrit 41.1 % 39.8 % Mean Corpuscular Volume 87.4 FL 87.8 FL Mean Corpuscular Hemoglobin 30.4 PG 30.3 PG Mean Corpuscular Hemoglobin Concent 34.7 % 34.5 % Red Cell Distribution Width 13.3 % 13.4 % Platelet Count 184 TH/MM3 188 TH/MM3 Mean Platelet Volume 9.1 FL 8.6 FL Neutrophils (%) (Auto) 73.6 % 69.6 % Lymphocytes (%) (Auto) 14.4 % 15.3 % Monocytes (%) (Auto) 7.6 % 9.8 % Eosinophils (%) (Auto) 4.1 % 4.8 % Basophils (%) (Auto) 0.3 % 0.5 % Neutrophils # (Auto) 5.9 TH/MM3 6.2 TH/MM3 Lymphocytes # (Auto) 1.1 TH/MM3 1.4 TH/MM3 Monocytes # (Auto) 0.6 TH/MM3 0.9 TH/MM3 Eosinophils # (Auto) 0.3 TH/MM3 0.4 TH/MM3 Basophils # (Auto) 0.0 TH/MM3 0.0 TH/MM3 CBC Comment DIFF FINAL DIFF FINAL Differential Comment Prothrombin Time 10.7 SEC Prothromb Time International Ratio 1.1 RATIO Platelet Function P2Y12 React Units 167 PRU Blood Urea Nitrogen 21 MG/DL Creatinine 0.90 MG/DL Random Glucose 129 MG/DL Calcium Level 8.7 MG/DL Phosphorus Level 3.8 MG/DL Magnesium Level 2.1 MG/DL Sodium Level 138 MEQ/L Potassium Level 4.2 MEQ/L Chloride Level 106 MEQ/L Carbon Dioxide Level 23.8 MEQ/L Anion Gap 8 MEQ/L Estimat Glomerular Filtration Rate 84 ML/MIN Imaging Last Impressions Lower Extremity Ultrasound 01/02/18 Signed Impressions: CONCLUSION: 1. The study is negative for lower extremity deep venous thrombosis. Chest X-Ray 01/01/18 Signed Impressions: CONCLUSION: No acute cardiopulmonary abnormality is identified for technique. Carotid Artery Ultrasound 12/31/17 Signed Impressions: CONCLUSION: 1. Right Internal Carotid Artery: Findings indicate <50% stenosis. 2. Left Internal Carotid Artery: Findings indicate <50% stenosis. Abdomen X-Ray 12/31/17 Signed Impressions: CONCLUSION: It appears the tip of the aortic balloon pump is projecting over the left aspec t of the L2 vertebral body. This would be in the mid abdominal aorta. Objective Remarks GENERAL: Awake and alert, in no distress. Denies chest pain SKIN: Warm/dry. HEAD: Atraumatic. Normocephalic. EYES: Pupils equal and round. No scleral icterus. ENT: Mucous membranes. NECK: Trachea midline. No JVD. CARDIOVASCULAR: Regular rate and rhythm. No murmur appreciated, IABP augmenting well RESPIRATORY: No accessory muscle use. Clear to auscultation. Breath sounds equal bilaterally. GASTROINTESTINAL: Abdomen soft, non-tender, nondistended. MUSCULOSKELETAL: Right groin cath site without hematoma. Left groin IABP incision site without hematoma. Peripheral pulses are palpable NEUROLOGICAL: Awake and alert. No obvious cranial nerve deficits. Motor grossly within normal limits. Normal speech. In good spirits A/P Assessment and Plan NEURO: -As needed morphine for pain -Awake and alert RESP: -Nasal cannula oxygen, if needed to keep sats above 92% -Aggressive pulmonary toilet CV: Acute STEMI Ischemic cardiomyopathy Reperfusion arrhythmia/ventricular fibrillation Multivessel coronary artery disease -Patient is status post cardiac catheterization and BMS to the LAD (cath showed 3 vessel CAD with RCA and LAD occlusion, EF 30%) -2D echo showed EF 30-35%. The basal inferior wall is scarred and akinetic. The distal anteroseptum and entire apex is akinetic. -Awaiting CABG -Continue aspirin daily. -Completed IV Aggrastat, continue IV heparin -IABP d/c yesterday -Continue p.o. amiodarone 400 mg p.o. twice daily -Carvedilol 3.125 mg every 12 -Lipitor 40 mg nightly GI: -IV famotidine for GI prophylaxis : -Monitor renal function , electrolytes replacement per protocol. ID: -Periprocedural antibiotics per CTS -Monitor for signs of infections ( Fever, WBC) HEME: -Monitor CBC, CMP, coags- on Heparin drip ENDO: -SSI if needed for glycemic control. PROPH: -IV heparin, IV famotidine LINES: -Utilize peripheral IVs, Level 2 Bolivar Jung MD Jan 05, 2018 08:20
[2018-01-05] MEDS: MUPIROCIN 2% OINT 1 APPLIC/GM SYR EACH NARE SCH (08:51)
[2018-01-05] MEDS: FAMOTIDINE 20 MG TAB PO SCH ×2 (08:51→22:02)
[2018-01-05] MEDS: AMIODARONE 200 MG TAB PO SCH ×2 (08:51→22:02)
[2018-01-05] MEDS: CARVEDILOL 3.125 MG TAB PO SCH ×2 (08:51→22:02)
[2018-01-05] MEDS: SODIUM CHLORIDE 0.9% FLUSH 10 ML FLUSH IV FLUSH SCH ×2 (08:51→22:02)
[2018-01-05] MEDS: HEPARIN 25,000 UNITS-D5W 250 ML - PREMIX IV PRN (12:52)
--- NOTE | 2018-01-05 13:54 | PD.CARD.PN ---
Subjective Subjective Remarks assymptomatic in nad Objective Medications Current Medications Medications (Trade) Dose Ordered Sig/Pascual Route Start Time Stop Time Status Last Admin (NS Flush) 2 ml UNSCH PRN IV FLUSH 12/31/17 12:30 (NS Flush) 2 ml BID IV FLUSH 12/31/17 21:00 01/05/18 08:51 (Aspirin Chew) 162 mg DAILY PO 01/01/18 09:00 Future Hold 01/03/18 08:43 (Lipitor) 40 mg HS PO 12/31/17 21:00 01/04/18 21:44 Potassium Chloride 100 ml @ 50 mls/hr Q2H PRN IV 12/31/17 13:15 Potassium Chloride 100 ml @ 50 mls/hr Q2H PRN IV 12/31/17 13:15 (K-Lyte Cl Eff) 50 meq UNSCH PRN PO 12/31/17 13:15 Potassium Chloride 100 ml @ 25 mls/hr UNSCH PRN IV 12/31/17 13:15 Potassium Chloride 100 ml @ 50 mls/hr Q2H PRN IV 12/31/17 13:15 01/01/18 09:28 Magnesium Sulfate 4 gm/Sodium Chloride 100 ml @ 50 mls/hr UNSCH PRN IV 12/31/17 13:15 (Mag-Ox) 800 mg UNSCH PRN PO 12/31/17 13:15 Magnesium Sulfate 2 gm/Sodium Chloride 100 ml @ 50 mls/hr UNSCH PRN IV 12/31/17 13:15 12/31/17 19:00 (K-Phos) 2,000 mg Q4H PRN PO 12/31/17 13:15 12/31/17 16:11 Sodium Phosphate 30 mmol/Sodium Chloride 250 ml @ 42 mls/hr UNSCH PRN IV 12/31/17 13:15 (K-Phos) 2,000 mg UNSCH PRN PO/TUBE 12/31/17 13:15 Potassium Phosphate 30 mmol/ Sodium Chloride 260 ml @ 42 mls/hr UNSCH PRN IV 12/31/17 13:15 (Cordarone) 400 mg Q12HR PO 12/31/17 21:00 01/05/18 08:51 Cefazolin Sodium 500 mg/Sodium Chloride 505 ml @ 0 mls/hr PHILATELIC CONSULTANT IRRIGATION 12/31/17 13:30 01/07/18 13:29 Cefazolin Sodium/ Dextrose 50 ml @ 150 mls/hr PHILATELIC CONSULTANT IV 12/31/17 13:30 01/07/18 13:29 (Hibiclens 4% Top Soln) 1 applic PHILATELIC CONSULTANT TOPICAL 12/31/17 13:30 01/07/18 13:29 Insulin Human Regular 100 units/ Sodium Chloride 100 ml @ 3 mls/hr TITRATE PRN IV 12/31/17 13:30 01/07/18 13:29 (D50w (Vial) Inj) 50 ml UNSCH PRN IV PUSH 12/31/17 13:30 (Morphine Inj) 2 mg Q4H PRN SQ 12/31/17 14:00 Papaverine HCl 60 mg/Nitroglycerin 100 mcg/Verapamil HCl 100 mg/Sodium Chloride 100 ml @ 0 mls/hr PHILATELIC CONSULTANT IRRIGATION 12/31/17 15:30 01/07/18 13:29 Heparin Sodium/ Dextrose 250 ml @ 10 mls/hr TITRATE PRN IV 12/31/17 17:00 01/05/18 12:52 (Heparin Inj) 5,000 units UNSCH PRN IV PUSH 12/31/17 17:00 (Heparin Inj) 2,500 units UNSCH PRN IV PUSH 12/31/17 17:00 01/03/18 21:32 Amiodarone HCl 450 mg/Dextrose 250 ml @ 33.33 mls/ hr Q7H31M PRN IV 12/31/17 18:02 12/31/17 18:50 (Lopressor Inj) 2.5 mg Q6H PRN IV PUSH 12/31/17 18:00 Potassium Chloride 100 ml @ 25 mls/hr UNSCH PRN IV 12/31/17 18:45 (Coreg) 3.125 mg Q12HR PO 01/01/18 09:00 01/05/18 08:51 (Pepcid) 20 mg BID PO 01/03/18 21:00 01/05/18 08:51 Vital Signs / I&O Vital Signs Date Time Temp Pulse Resp B/P (MAP) Pulse Ox O2 Delivery O2 Flow Rate FiO2 01/05/18 11:23 96 Room Air 01/05/18 11:22 76 01/05/18 11:21 97.9 76 20 121/79 (93) 96 01/05/18 07:36 97.8 76 18 121/64 (83) 96 01/05/18 07:34 76 01/05/18 07:34 96 Room Air 01/05/18 04:00 97 Room Air 01/05/18 04:00 57 01/05/18 04:00 98.2 58 18 110/64 (79) 97 01/05/18 00:00 70 01/05/18 00:00 98.5 70 18 125/73 (90) 97 01/04/18 23:30 97 Room Air 01/04/18 20:00 67 01/04/18 20:00 97 Room Air 01/04/18 20:00 98.6 72 18 122/67 (85) 97 01/04/18 15:15 67 01/04/18 15:14 97 Room Air 01/04/18 15:11 97.9 67 18 122/60 (80) 97 I/O 01/04/18 01/04/18 01/04/18 01/05/18 01/05/18 01/05/18 07:00 15:00 23:00 07:00 15:00 23:00 Intake Total 1256 ml 190 ml 1400 ml 426 ml 141 ml Output Total 1300 ml 1300 ml 850 ml Balance -44 ml 190 ml 100 ml -424 ml 141 ml Intake Oral 480 ml 1200 ml 240 ml IV Total 776 ml 190 ml 200 ml 186 ml 141 ml Output Urine Total 1300 ml 1300 ml 850 ml # Bowel Movements 0 0 0 Physical Exam GENERAL: SKIN: Warm and dry. HEAD: Normocephalic. EYES: No scleral icterus. No injection or drainage. NECK: Supple, trachea midline. No JVD or lymphadenopathy. CARDIOVASCULAR: Regular rate and rhythm without murmurs, gallops, or rubs. RESPIRATORY: Breath sounds equal bilaterally. No accessory muscle use. GASTROINTESTINAL: Abdomen soft, non-tender, nondistended. MUSCULOSKELETAL: No cyanosis, or edema. BACK: Nontender without obvious deformity. No CVA tenderness. Laboratory Laboratory Tests Test 01/04/18 22:30 01/05/18 03:42 Activated Partial Thromboplast Time 41.1 SEC 41.7 SEC White Blood Count 8.9 TH/MM3 Red Blood Count 4.53 MIL/MM3 Hemoglobin 13.7 GM/DL Hematocrit 39.8 % Mean Corpuscular Volume 87.8 FL Mean Corpuscular Hemoglobin 30.3 PG Mean Corpuscular Hemoglobin Concent 34.5 % Red Cell Distribution Width 13.4 % Platelet Count 188 TH/MM3 Mean Platelet Volume 8.6 FL Neutrophils (%) (Auto) 69.6 % Lymphocytes (%) (Auto) 15.3 % Monocytes (%) (Auto) 9.8 % Eosinophils (%) (Auto) 4.8 % Basophils (%) (Auto) 0.5 % Neutrophils # (Auto) 6.2 TH/MM3 Lymphocytes # (Auto) 1.4 TH/MM3 Monocytes # (Auto) 0.9 TH/MM3 Eosinophils # (Auto) 0.4 TH/MM3 Basophils # (Auto) 0.0 TH/MM3 CBC Comment DIFF FINAL Differential Comment Prothrombin Time 10.7 SEC Prothromb Time International Ratio 1.1 RATIO Platelet Function P2Y12 React Units 167 PRU Blood Urea Nitrogen 21 MG/DL Creatinine 0.90 MG/DL Random Glucose 129 MG/DL Calcium Level 8.7 MG/DL Phosphorus Level 3.8 MG/DL Magnesium Level 2.1 MG/DL Sodium Level 138 MEQ/L Potassium Level 4.2 MEQ/L Chloride Level 106 MEQ/L Carbon Dioxide Level 23.8 MEQ/L Anion Gap 8 MEQ/L Estimat Glomerular Filtration Rate 84 ML/MIN Assessment and Plan Problem List: (1) STEMI (ST elevation myocardial infarction) ICD Codes: I21.3 - ST elevation (STEMI) myocardial infarction of unspecified site Status: Acute (2) Ventricular fibrillation ICD Codes: I49.01 - Ventricular fibrillation (3) Ischemic cardiomyopathy ICD Codes: I25.5 - Ischemic cardiomyopathy (4) On intra-aortic balloon pump assist ICD Codes: Z98.890 - Other specified postprocedural states (5) Multi-vessel coronary artery stenosis ICD Codes: I25.10 - Atherosclerotic heart disease of [place] coronary artery without angina pectoris Assessment and Plan 1.) pod # 5 primary pci lad, ekg changes resolved, ef=30-35% with akinetic apex on echo, d/w Dr Mcfadden who read echo, continue aspirin, iv hep, coreg, amio; effient held per ct surg, platelet activity remains too low for cabg now, plan is to recheck 01/06/18, iabp out, d/w patient Dr mclaughlin 01/05/18 Problem Qualifiers (1) STEMI (ST elevation myocardial infarction): Qualified Codes: I21.3 - ST elevation (STEMI) myocardial infarction of unspecified site Puma Sullivan MD Jan 05, 2018 13:54
--- NOTE | 2018-01-05 14:09 | PD.CAR.PN ---
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 He was riding his bike this morning and developed chest pain at approximately 11 a.m. He rode his bike 5 miles back to his car, drove himself to the ER. He was found to have an anterior injury pattern on EKG. STEMI was called. The patient was emergently transported to the garage laborer. Maximum chest pain was 6/10. He has no previous history of coronary artery disease or any other significant coronary artery risk factors other than age and sex. Cardiac catheterization by Dr. Sullivan showed occluded mid left anterior descending to be the culprit lesion, a bare-metal stent was placed. Patient was also found to have three-vessel coronary artery disease and ischemic cardiomyopathy with EF 25-30% with severe hypokinesis to akinesis of the inferoapical and distal anteroapical wall. Patient was continued on IV heparin, Aggrastat was started IV. Patient was also loaded with Effient. Dr. Sullivan placed IABP after PCI and stent. CT surgery was consulted for three-vessel coronary artery disease for CABG evaluation Per [facility] note , pt had reperfusion arrhythmia/ventricular fibrillation in garage laborer which needed cardioversion x2. started on IV amiodarone EF 35% 01/01/18 Stable. Denies chest pain and ectopy has resolved with amiodarone. ECHO - pending 01/02 Doing well. No CP Lengthy discussion with the pt regarding clinical and angiographic findings Plan OR Thursday afternoon or Thursday Will decide about potential removal of the IABP tomorrow 01/03 Planned OR tomorrow, however, his platelet function still very abnormal. Will hold off on OR until function normalizes. Will recheck PRU in am again 01/04 Platelet function remains grossly abnormal OK to D/C IABP from my standpoint Recheck PRU this week 01/05 PRU now 167 await at least >190/ recheck in am, NPO for possible surgery in am on Heparin gtt no chest pain last night Objective: GENERAL: A&O x 3 SKIN: Warm and dry./ ecchymosis both groins HEAD: Normocephalic. EYES: No scleral icterus. No injection or drainage. NECK: Supple, trachea midline. No JVD or lymphadenopathy. CARDIOVASCULAR: Regular rate and rhythm without murmurs, gallops, or rubs. RESPIRATORY: Breath sounds equal bilaterally. No accessory muscle use. GASTROINTESTINAL: Abdomen soft, non-tender, nondistended. MUSCULOSKELETAL: No cyanosis, or edema. BACK: Nontender without obvious deformity. No CVA tenderness. Vital Signs Date Time Temp Pulse Resp B/P (MAP) Pulse Ox O2 Delivery O2 Flow Rate FiO2 01/05/18 11:23 96 Room Air 01/05/18 11:22 76 01/05/18 11:21 97.9 76 20 121/79 (93) 96 01/05/18 07:36 97.8 76 18 121/64 (83) 96 01/05/18 07:34 76 01/05/18 07:34 96 Room Air 01/05/18 04:00 97 Room Air 01/05/18 04:00 57 01/05/18 04:00 98.2 58 18 110/64 (79) 97 01/05/18 00:00 70 01/05/18 00:00 98.5 70 18 125/73 (90) 97 01/04/18 23:30 97 Room Air 01/04/18 20:00 67 01/04/18 20:00 97 Room Air 01/04/18 20:00 98.6 72 18 122/67 (85) 97 01/04/18 15:15 67 01/04/18 15:14 97 Room Air 01/04/18 15:11 97.9 67 18 122/60 (80) 97 Labs: Laboratory Tests Test 01/05/18 03:42 White Blood Count 8.9 TH/MM3 (4.0-11.0) Red Blood Count 4.53 MIL/MM3 (4.50-5.90) Hemoglobin 13.7 GM/DL (13.0-17.0) Hematocrit 39.8 % (39.0-51.0) Mean Corpuscular Volume 87.8 FL (80.0-100.0) Mean Corpuscular Hemoglobin 30.3 PG (27.0-34.0) Mean Corpuscular Hemoglobin Concent 34.5 % (32.0-36.0) Red Cell Distribution Width 13.4 % (11.6-17.2) Platelet Count 188 TH/MM3 (150-450) Mean Platelet Volume 8.6 FL (7.0-11.0) Neutrophils (%) (Auto) 69.6 % (16.0-70.0) Lymphocytes (%) (Auto) 15.3 % (9.0-44.0) Monocytes (%) (Auto) 9.8 % (0.0-8.0) Eosinophils (%) (Auto) 4.8 % (0.0-4.0) Basophils (%) (Auto) 0.5 % (0.0-2.0) Neutrophils # (Auto) 6.2 TH/MM3 (1.8-7.7) Lymphocytes # (Auto) 1.4 TH/MM3 (1.0-4.8) Monocytes # (Auto) 0.9 TH/MM3 (0-0.9) Eosinophils # (Auto) 0.4 TH/MM3 (0-0.4) Basophils # (Auto) 0.0 TH/MM3 (0-0.2) CBC Comment DIFF FINAL Differential Comment Prothrombin Time 10.7 SEC (9.8-11.6) Prothromb Time International Ratio 1.1 RATIO Activated Partial Thromboplast Time 41.7 SEC (24.3-30.1) Platelet Function P2Y12 React Units 167 PRU (194-418) Blood Urea Nitrogen 21 MG/DL (7-18) Creatinine 0.90 MG/DL (0.60-1.30) Random Glucose 129 MG/DL (74-106) Calcium Level 8.7 MG/DL (8.5-10.1) Phosphorus Level 3.8 MG/DL (2.5-4.9) Magnesium Level 2.1 MG/DL (1.5-2.5) Sodium Level 138 MEQ/L (136-145) Potassium Level 4.2 MEQ/L (3.5-5.1) Chloride Level 106 MEQ/L (98-107) Carbon Dioxide Level 23.8 MEQ/L (21.0-32.0) Anion Gap 8 MEQ/L (5-15) Estimat Glomerular Filtration Rate 84 ML/MIN (>89) Result Diagram: 01/05/1834101/05/18341 (1) STEMI (ST elevation myocardial infarction) Plan: BB statin , heparin gtt recheck PRU in am (2) Ventricular fibrillation Plan: resolved (3) Ischemic cardiomyopathy (4) Multi-vessel coronary artery stenosis Problem Qualifiers (1) STEMI (ST elevation myocardial infarction): Qualified Codes: I21.3 - ST elevation (STEMI) myocardial infarction of unspecified site Bing Clarke Jan 05, 2018 14:09
[2018-01-05] MEDS: ATORVASTATIN 40 MG TAB PO SCH (22:02)
[2018-01-06 03:00] VITALS: PULSE 60
[2018-01-06 05:17] LABS: AUTOMATED NEUTROPHIL # 4.6 TH/MM3 (1.8-7.7); BASOPHIL % 0.5 % (0.0-2.0); EOSINOPHIL # 0.3 TH/MM3 (0-0.4); EOSINOPHIL % 4.7 % (0.0-4.0); HEMOGLOBIN 14.3 GM/DL (13.0-17.0); LYMPH % 18.9 % (9.0-44.0); LYMPHOCYTE # 1.3 TH/MM3 (1.0-4.8); MEAN CELL VOLUME 87.7 FL (80.0-100.0); MEAN CORPUSCULAR HEMOGLOBIN 30.5 PG (27.0-34.0); MEAN CORPUSCULAR HGB CONC 34.8 % (32.0-36.0); MEAN PLATELET VOLUME 8.2 FL (7.0-11.0); MONO % 9.1 % (0.0-8.0); MONOCYTE # 0.6 TH/MM3 (0-0.9); NEUT % 66.8 % (16.0-70.0); PLATELET COUNT 217 TH/MM3 (150-450); RED BLOOD COUNT 4.67 MIL/MM3 (4.50-5.90); RED CELL DISTRIBUTION WIDTH 13.3 % (11.6-17.2); WHITE BLOOD COUNT 6.9 TH/MM3 (4.0-11.0)
[2018-01-06 05:31] LABS: CALCIUM 8.9 MG/DL (8.5-10.1)
[2018-01-06] MEDS ORDERED: HEPARIN SODIUM - SQ 10,000 UNITS/ML VIAL ONE (06:41)
[2018-01-06] MEDS ORDERED: VANCOMYCIN HCL 1000 MG VIAL ONE (06:41)
[2018-01-06] MEDS ORDERED: ceFAZolin 2 GM PREMIX 50 ML ONE (06:42)
[2018-01-06] MEDS: SODIUM CHLORIDE 0.9% FLUSH 10 ML FLUSH IV FLUSH SCH (08:30)
[2018-01-06] MEDS: AMIODARONE 200 MG TAB PO SCH (08:30)
[2018-01-06] MEDS: CARVEDILOL 3.125 MG TAB PO SCH (08:30)
[2018-01-06] MEDS: FAMOTIDINE 20 MG TAB PO SCH (08:30)
--- NOTE | 2018-01-06 08:46 | RSPPFT ---
DATE OF PROCEDURE: 12/30/17 COMMENTS: Spirometry with FVC of 3.4 predicted 4.6, FEV1 of 2.7 predicted 3.7, FEV1/FVC ratio 80% predicted 78%. IMPRESSION: Lung volumes have not been measured but if clinically indicated lung volumes may be necessary to diagnosis a restrictive lung defect.
[2018-01-06] MEDS ORDERED: LACTATED RINGER'S 1000 ML INJ 500 ML IV PRN (09:51)
[2018-01-06] MEDS ORDERED: DOBUTamine PREMIX DRIP 250 ML IV PRN (09:51)
[2018-01-06] MEDS ORDERED: CALCIUM CHLORIDE INJ 1 GM in SODIUM CHLORIDE 0.9% INJ 100 ML IV PRN (10:00)
[2018-01-06] MEDS ORDERED: ACETAMINOPHEN 325 MG TAB PO PRN (10:00)
[2018-01-06] MEDS ORDERED: ACETAMINOPHEN/HYDROcodone 325 MG/5 MG TAB PO PRN (10:00)
[2018-01-06] MEDS ORDERED: MORPHINE SULFATE 4 MG/ML INJ IV PUSH PRN (10:00)
[2018-01-06] MEDS ORDERED: MEPERIDINE HCL 25 MG/ML VIAL IV PUSH PRN (10:00)
[2018-01-06] MEDS ORDERED: INSULIN REGULAR (IV INFUSION) 100 UNITS in SODIUM CHLORIDE 0.9% INJ 99 ML IV PRN (10:00)
[2018-01-06] MEDS ORDERED: RESP: ALBUTEROL 2.5 MG/IPRATROPIUM 0.5 MG NEB (SCH) NEB (10:00)
[2018-01-06] MEDS ORDERED: CALCIUM CHLORIDE 10% 1 GRAM/10 ML VIAL IV PUSH PRN (10:00)
[2018-01-06] MEDS ORDERED: MAGNESIUM SULFATE INJ 2 GM in SODIUM CHLORIDE 0.9% INJ 100 ML IV PRN ×4 (10:00)
[2018-01-06] MEDS ORDERED: ALBUMIN 5% INJ 250 ML IV PRN (10:00)
[2018-01-06] MEDS ORDERED: NITROGLYCERIN-D5W 50 MG/250 ML 250 ML IV PRN (10:00)
[2018-01-06] MEDS ORDERED: DEXTROSE 50% IN WATER 50 ML VIAL(D50) IV PUSH PRN (10:00)
[2018-01-06] MEDS ORDERED: CLEVIDIPINE INJ 50 ML IV PRN (10:00)
[2018-01-06] MEDS ORDERED: POTASSIUM CHLOR 20 MEQ PREMIX 100 ML IV PRN ×3 (10:00)
[2018-01-06] MEDS ORDERED: hydrALAZINE HCL 20 MG/ML VIAL IV PUSH PRN (10:00)
[2018-01-06] MEDS ORDERED: PHENYLEPHRINE INJ 40 MG in DEXTROSE 5% IN WATE 500 ML INJ 496 ML IV PRN ×2 (10:00)
[2018-01-06] MEDS ORDERED: METOPROLOL TARTRATE 5 MG/5 ML VIAL IV PUSH PRN (10:00)
[2018-01-06] MEDS ORDERED: DOPamine 800 MG/500 ML INJ 500 ML IV PRN (10:00)
[2018-01-06] MEDS ORDERED: SODIUM BICARBONATE 8.4% SOLN 50 MEQ/50 ML VIAL IV PUSH PRN ×2 (10:00)
[2018-01-06] MEDS ORDERED: RESP: ALBUTEROL 2.5 MG/IPRATROPIUM 0.5 MG NEB (PRN) NEB (10:00)
[2018-01-06] MEDS ORDERED: SODIUM CHLORIDE 0.9% FLUSH 10 ML FLUSH IV FLUSH PRN (10:00)
[2018-01-06] MEDS ORDERED: Post-op Orders (for Pharmacy) OTHER ONE (10:00)
[2018-01-06] MEDS ORDERED: ACETAMINOPHEN 650 MG SUPP RECTAL PRN (10:00)
[2018-01-06] MEDS ORDERED: RESP: RACEPINEPHRINE 2.25% 0.5 ML NEB NEB PRN (10:00)
[2018-01-06] MEDS ORDERED: KETOROLAC TROMETHAMINE 30 MG/ML (IVP) VIAL IV PUSH PRN (10:00)
[2018-01-06] MEDS ORDERED: POTASSIUM CHLORIDE 20 MEQ CONTROLLED RELEASE TAB PO PRN ×2 (10:00)
[2018-01-06] MEDS ORDERED: ONDANSETRON HCL 4 MG/2 ML VIAL IV PUSH PRN (10:00)
[2018-01-06] MEDS ORDERED: DEXMEDETOMIDINE INJ 200 MCG in SODIUM CHLORIDE 0.9% INJ 50 ML IV PRN (10:00)
--- NOTE | 2018-01-06 10:14 | PD.OP ---
cc: Trudi Cabrera MD Operative Report Date of Surgery: Jan 06, 2018 Preoperative Diagnosis: Postoperative Diagnosis: Procedure: 1. Aborted Coronary Artery Bypass Grafting 2. Left Leg Endoscopic Vein [place] 3. Intraoperative Vein Mapping. Surgeon: Trudi Cabrera Car Attendant(s): Luis Enrique Radford Operation and Findings: PREPROCEDURE DIAGNOSES 1. Severe Multi Vessel Coronary Artery Disease. 2. Acute Myocardial Infarction (STEMI) 3. Ventricular Fibrillation 4. Severe Left Ventricular Dysfunction POSTPROCEDURE DIAGNOSES Same SURGICAL PROCEDURE 1. Aborted Coronary Artery Bypass Grafting 2. Left Leg Endoscopic Vein [place]isf[place] 3. Intraoperative Vein Mapping. SURGEON Trudi Cabrera MD OUTSIDE OPERATOR REYNA Camarena ANESTHESIA General endotracheal CRAPS MANAGER NIMA Small MD PREPARATION ChloraPrep. COUNTS Needle, sponge, and instrument counts were correct. DRAINS None COMPLICATIONS None. INDICATIONS FOR PROCEDURE The patient is a 67-year-old presenting with chest pain and AMI. Patient was noted to have multi-vessel coronary artery disease. The patient is being brought to the operating room for surgical revascularization therapy following successful PCI of the culprit LAD lesion. PROCEDURE Patient was brought to the operating room and placed supine on the OR table. Following the induction of adequate general endotracheal anesthesia and placement of appropriate monitoring devices, intraoperative vein mapping was performed which revealed poor-caliber conduit in bilateral lower extremities. The patient was then prepped and draped in standard sterile fashion. Next, 2500 units of intravenous heparin was given. The left greater saphenous vein was harvested endoscopically. This appeared to be a small and thickened, nonuseable- caliber conduit of approx 1.5 mm luminal diameter. This was deemed to not be suitable for bypassing. The contralateral leg was again explored with the ultrasound and no viable conduit was identified. The endoscopic vein harvest site was closed in 2 layers. I didn't think that a free ROS graft would reach the target Circumflex or RPLB vessel and so the procedure was stopped after discussion with Dr. Sullivan and the pt's daughter with plans to stent the LCX. The patient was transferred to CVICU in stable condition. Trudi Cabrera MD Jan 06, 2018 10:14
[2018-01-06] MEDS ORDERED: MIDAZOLAM HCL 2 MG/2 ML VIAL ONE ×2 (10:44→10:45)
[2018-01-06] MEDS ORDERED: fentaNYL CITRATE 250 MCG/5 ML AMP ONE (10:45)
[2018-01-06] MEDS: HEPARIN 25,000 UNITS-D5W 250 ML - PREMIX IV PRN (10:56)
[2018-01-06 11:00] VITALS: BP_SYST 118; BP_SYST 127; BP_DIAS 63; BP_DIAS 75; PULSE 71; PULSE 72; RESP 16; TEMP 97.6; O2SAT 97
--- NOTE | 2018-01-06 11:06 | HHI.CCPN ---
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 Apparently he rode bike 5 miles back to the car and presented to the emergency department. Stat EKG showed anterolateral ST elevations and a STEMI alert was called. He was given aspirin and was emergently taken to the dental laboratory assistant. He has no previous history of coronary artery disease or any other significant coronary artery risk factors other than age and sex. Cardiac catheterization by Dr. Sullivan showed occluded mid left anterior descending to be the culprit lesion, a bare-metal stent was placed. Patient was also found to have three-vessel coronary artery disease and ischemic cardiomyopathy with EF 25-30% with severe hypokinesis to akinesis of the inferoapical and distal anteroapical wall. Patient was continued on IV heparin, Aggrastat was started IV. Patient was also loaded with Effient. Dr. Sullivan placed IABP after PCI and stent. CT surgery was consulted for three-vessel coronary artery disease for CABG evaluation. I evaluated the patient in the ICU. He is lying on bed denies any chest pain at this time, mildly anxious. IABP in place without hematoma at the insertion site-intermittently augmenting well. Cardiac catheterization site at right groin also without any hematoma. According to Dr. Sullivan patient had reperfusion arrhythmia/ventricular fibrillation in dental laboratory assistant which needed cardioversion x2. Will start on IV amiodarone per Dr. Vicente. I will also add carvedilol 3.125 mg twice daily, and Lipitor SUBJ 01/01: Currently appears comfortable, no further sustained VTAC, minimal PVCs, and paroxysmal a fib. IABP with good augmentation. Remains on IV Heparin. IV Aggrastat, and IV Amiodarone. 01/02: Lying in bed comfortably no further arrhythmias. Denies chest. IABP remains in place. 2D echo showed EF 30-35%. The basal inferior wall is scarred and akientic. The distal anteroseptum and entire apex is akinetic. CABG eval/plan per CTS 01/03: Denies chest pain no arrhythmias. IABP still Augmentin well. Possible removal today. CABG tentatively planned for Thursday per Dr. Cabrera 01/04 No events overnight. Awake and alert. On IABP 1:1. Heparin drip. 01/05 No events overnight. IABP d/c yesterday awaiting CABG. On Heparin drip. 01/06: taken to OR but case aborted for no usable vein during endoscopic vein harvest. Dr. Sullivan discussing other options with family. patient returning to CVICU and arousing from anesthesia. ROS unobtainable due to current mental status and arousing from anesthesia. Objective Vital Signs Date Time Temp Pulse Resp B/P (MAP) Pulse Ox O2 Delivery O2 Flow Rate FiO2 01/06/18 05:00 97 Room Air 01/06/18 03:00 60 01/05/18 23:06 98.3 16 114/64 (81) 01/02/18 21:05 21 Intake and Output 01/06/18 01/06/18 01/06/18 07:59 15:59 23:59 Intake Total 240 ml 2000 ml Output Total 1425 ml 475 ml Balance -1185 ml 1525 ml Result Diagram: 01/06/18 0501 01/06/18 0501 Imaging Last Impressions Lower Extremity Ultrasound 01/02/18 0000 Signed Impressions: CONCLUSION: 1. The study is negative for lower extremity deep venous thrombosis. Chest X-Ray 01/01/18 0000 Signed Impressions: CONCLUSION: No acute cardiopulmonary abnormality is identified for technique. Carotid Artery Ultrasound 12/31/17 0000 Signed Impressions: CONCLUSION: 1. Right Internal Carotid Artery: Findings indicate <50% stenosis. 2. Left Internal Carotid Artery: Findings indicate <50% stenosis. Abdomen X-Ray 12/31/17 0000 Signed Impressions: CONCLUSION: It appears the tip of the aortic balloon pump is projecting over the left aspec t of the L2 vertebral body. This would be in the mid abdominal aorta. Objective Remarks GENERAL: Awake, arousing from anesthesia, in no distress. SKIN: Warm/dry. HEAD: Atraumatic. Normocephalic. EYES: Pupils equal and round. No scleral icterus. ENT: Mucous membranes. NECK: Trachea midline. No JVD. CARDIOVASCULAR: Regular rate and rhythm. sinus RESPIRATORY: No accessory muscle use. Clear to auscultation. Breath sounds equal bilaterally. GASTROINTESTINAL: Abdomen soft, non-tender, nondistended. MUSCULOSKELETAL: Right groin cath site without hematoma. Peripheral pulses are palpable NEUROLOGICAL: Awake, arousing from anesthesia. no focal deficits. A/P Assessment and Plan Assessment: 67yM s/p LAD STEMI s/p PCI, course complicated by multivessel disease. will discuss with Dr. Sullivan and surgical team what the most appropriate next step in management of the patient is. NEURO: -As needed morphine for pain RESP: -Nasal cannula oxygen, if needed to keep sats above 92% -Aggressive pulmonary toilet CV: Acute STEMI Ischemic cardiomyopathy Reperfusion arrhythmia/ventricular fibrillation Multivessel coronary artery disease -Patient is status post cardiac catheterization and BMS to the LAD (cath showed 3 vessel CAD with RCA and LAD occlusion, EF 30%) -2D echo showed EF 30-35%. The basal inferior wall is scarred and akinetic. The distal anteroseptum and entire apex is akinetic. -aborted CABG attempt 01/06, no usable vein harvest. -Continue aspirin daily. -Completed IV Aggrastat, continue IV heparin -Continue p.o. amiodarone 400 mg p.o. twice daily -Carvedilol 3.125 mg every 12 -Lipitor 40 mg nightly GI: -IV famotidine for GI prophylaxis : -Monitor renal function , electrolytes replacement per protocol. ID: -Periprocedural antibiotics per CTS -Monitor for signs of infections ( Fever, WBC) HEME: -Monitor CBC, CMP, coags- on Heparin drip ENDO: -SSI if needed for glycemic control. PROPH: -IV heparin, IV famotidine LINES: -Utilize peripheral IVs, Howard Jimenez MD Jan 06, 2018 11:06
--- NOTE | 2018-01-06 11:38 | RADRPT ---
EXAM DATE: 01/06/2018 11:30 AM EDT AGE/SEX: 67 years / Male INDICATIONS: Status post coronary artery bypass graft surgery. CLINICAL DATA: This is the patient's subsequent encounter. Patient reports that signs and symptoms h ave been present for 1 week and indicates a pain score of 0/10. MEDICAL/SURGICAL HISTORY: None. Cholecystectomy. Bilateral total hip arthroplasties. COMPARISON: [facility] [place], 01/01/[place]. . FINDINGS: A single AP view of the chest demonstrates the lungs to be symmetrically aerated without evidence of mass, infiltrate or effusion. The cardiomediastinal contours are unremarkable. Osseous structures a re intact. CONCLUSION: Negative examination. Electronically signed by: Vinny Mcdowell MD 01/06/2018 11:37 AM EDT
[2018-01-06] MEDS: HEPARIN SODIUM - IV 10,000 UNITS/10 ML VIAL IV PUSH PRN (12:58)
[2018-01-06 15:00] VITALS: BP_SYST 114; BP_SYST 125; BP_DIAS 47; BP_DIAS 69; PULSE 70; PULSE 71; RESP 16; TEMP 97.8; O2SAT 98
[2018-01-06] MEDS ORDERED: ACETAMINOPHEN 1000 MG/100 ML 100 ML IV SCH (16:00)
--- NOTE | 2018-01-06 16:07 | PD.CARD.PN ---
Subjective Subjective Remarks assymptomatic in nad Objective Medications Current Medications Medications (Trade) Dose Ordered Sig/Pascual Route Start Time Stop Time Status Last Admin (NS Flush) 2 ml UNSCH PRN IV FLUSH 12/31/17 12:30 (NS Flush) 2 ml BID IV FLUSH 12/31/17 21:00 01/05/18 22:02 (Aspirin Chew) 162 mg DAILY PO 01/01/18 09:00 Future Hold 01/03/18 08:43 (Lipitor) 40 mg HS PO 12/31/17 21:00 01/05/18 22:02 Potassium Chloride 100 ml @ 50 mls/hr Q2H PRN IV 12/31/17 13:15 Potassium Chloride 100 ml @ 50 mls/hr Q2H PRN IV 12/31/17 13:15 (K-Lyte Cl Eff) 50 meq UNSCH PRN PO 12/31/17 13:15 Potassium Chloride 100 ml @ 25 mls/hr UNSCH PRN IV 12/31/17 13:15 Potassium Chloride 100 ml @ 50 mls/hr Q2H PRN IV 12/31/17 13:15 01/01/18 09:28 Magnesium Sulfate 4 gm/Sodium Chloride 100 ml @ 50 mls/hr UNSCH PRN IV 12/31/17 13:15 (Mag-Ox) 800 mg UNSCH PRN PO 12/31/17 13:15 Magnesium Sulfate 2 gm/Sodium Chloride 100 ml @ 50 mls/hr UNSCH PRN IV 12/31/17 13:15 12/31/17 19:00 (K-Phos) 2,000 mg Q4H PRN PO 12/31/17 13:15 12/31/17 16:11 Sodium Phosphate 30 mmol/Sodium Chloride 250 ml @ 42 mls/hr UNSCH PRN IV 12/31/17 13:15 (K-Phos) 2,000 mg UNSCH PRN PO/TUBE 12/31/17 13:15 Potassium Phosphate 30 mmol/ Sodium Chloride 260 ml @ 42 mls/hr UNSCH PRN IV 12/31/17 13:15 (Cordarone) 400 mg Q12HR PO 12/31/17 21:00 01/05/18 22:02 Cefazolin Sodium 500 mg/Sodium Chloride 505 ml @ 0 mls/hr UNISHEAR OPERATOR IRRIGATION 12/31/17 13:30 01/07/18 13:29 01/06/18 09:21 Cefazolin Sodium/ Dextrose 50 ml @ 150 mls/hr UNISHEAR OPERATOR IV 12/31/17 13:30 01/07/18 13:29 01/06/18 07:57 (Hibiclens 4% Top Soln) 1 applic UNISHEAR OPERATOR TOPICAL 12/31/17 13:30 01/07/18 13:29 (D50w (Vial) Inj) 50 ml UNSCH PRN IV PUSH 12/31/17 13:30 (Morphine Inj) 2 mg Q4H PRN SQ 12/31/17 14:00 Papaverine HCl 60 mg/Nitroglycerin 100 mcg/Verapamil HCl 100 mg/Sodium Chloride 100 ml @ 0 mls/hr UNISHEAR OPERATOR IRRIGATION 12/31/17 15:30 01/07/18 13:29 01/06/18 09:21 Heparin Sodium/ Dextrose 250 ml @ 10 mls/hr TITRATE PRN IV 12/31/17 17:00 01/06/18 10:56 (Heparin Inj) 5,000 units UNSCH PRN IV PUSH 12/31/17 17:00 (Heparin Inj) 2,500 units UNSCH PRN IV PUSH 12/31/17 17:00 01/06/18 12:58 Amiodarone HCl 450 mg/Dextrose 250 ml @ 33.33 mls/ hr Q7H31M PRN IV 12/31/17 18:02 12/31/17 18:50 (Lopressor Inj) 2.5 mg Q6H PRN IV PUSH 12/31/17 18:00 Potassium Chloride 100 ml @ 25 mls/hr UNSCH PRN IV 12/31/17 18:45 (Coreg) 3.125 mg Q12HR PO 01/01/18 09:00 01/05/18 22:02 (Pepcid) 20 mg BID PO 01/03/18 21:00 01/05/18 22:02 (NS Flush) 2 ml BID IV FLUSH 01/06/18 21:00 (NS Flush) 2 ml UNSCH PRN IV FLUSH 01/06/18 10:00 Dexmedetomidine HCl 200 mcg/ Sodium Chloride 52 ml @ 5.3 mls/hr TITRATE PRN IV 01/06/18 10:00 Nitroglycerin/ Dextrose 250 ml @ 1.5 mls/hr TITRATE PRN IV 01/06/18 10:00 Dobutamine HCl/ Dextrose 250 ml @ 15.3 mls/hr [id number] PRN IV 01/06/18 09:51 Dopamine HCl/ Dextrose 500 ml @ 11.475 mls/ hr TITRATE PRN IV 01/06/18 10:00 Phenylephrine HCl 40 mg/Dextrose 500 ml @ 30 mls/hr TITRATE PRN IV 01/06/18 10:00 Clevidipine 50 ml @ 2 mls/hr TITRATE PRN IV 01/06/18 10:00 Albumin Human 250 ml @ 250 mls/hr UNSCH PRN IV 01/06/18 10:00 Lactated Ringer's 500 ml @ 500 mls/hr Q1H PRN IV 01/06/18 09:51 Cefazolin Sodium 1000 mg/Sodium Chloride 100 ml @ 200 mls/hr Q8H IV 01/06/18 16:00 01/08/18 00:29 01/06/18 16:00 (Aspirin Chew) 162 mg DAILY PO 01/07/18 09:00 (Protonix) 40 mg DAILY@06 PO 01/07/18 06:00 (Tylenol) 650 mg Q4H PRN PO 01/06/18 10:00 (Tylenol Supp) 650 mg Q4H PRN RECTAL 01/06/18 10:00 Acetaminophen 100 ml @ 400 mls/hr Q6H IV 01/06/18 16:00 01/07/18 10:14 (Morphine Inj) 1 mg Q10M PRN IV PUSH 01/06/18 10:00 (Demerol Inj) 12.5 mg Q4H PRN IV PUSH 01/06/18 10:00 ([place] 5-325 Mg) 1 tab Q3H PRN PO 01/06/18 10:00 (Toradol Inj) 15 mg Q6H PRN IV PUSH 01/06/18 10:00 01/08/18 09:59 (fentaNYL INJ) 25 mcg Q1H PRN IV PUSH 01/06/18 10:00 (Zofran Inj) 4 mg Q6H PRN IV PUSH 01/06/18 10:00 (Lopressor Inj) 2.5 mg Q1H PRN IV PUSH 01/06/18 10:00 Potassium Chloride 100 ml @ 50 mls/hr UNSCH PRN IV 01/06/18 10:00 Potassium Chloride 100 ml @ 50 mls/hr UNSCH PRN IV 01/06/18 10:00 Potassium Chloride 100 ml @ 50 mls/hr UNSCH PRN IV 01/06/18 10:00 (KCl) 20 meq UNSCH PRN PO 01/06/18 10:00 (KCl) 40 meq UNSCH PRN PO 01/06/18 10:00 Magnesium Sulfate 2 gm/Sodium Chloride 104 ml @ 100 mls/hr UNSCH PRN IV 01/06/18 10:00 Magnesium Sulfate 2 gm/Sodium Chloride 104 ml @ 50 mls/hr UNSCH PRN IV 01/06/18 10:00 Calcium Chloride 1 gm/Sodium Chloride 110 ml @ 100 mls/hr UNSCH PRN IV 01/06/18 10:00 01/06/18 11:54 (Calcium Chloride Inj) 0.5 gm UNSCH PRN IV PUSH 01/06/18 10:00 (D50w (Vial) Inj) 50 ml UNSCH PRN IV PUSH 01/06/18 10:00 (Sodium Bicarbonate 8.4% Inj) 50 meq UNSCH PRN IV PUSH 01/06/18 10:00 (Sodium Bicarbonate 8.4% Inj) 100 meq UNSCH PRN IV PUSH 01/06/18 10:00 (Duoneb Neb) 1 ampule Q6HR NEB NEB 01/06/18 10:00 (Duoneb Neb) 1 ampule Q2HR NEB PRN NEB 01/06/18 10:00 (Racepinephrine 2.25% Neb) 0.5 ml UNSCH X1 PRN NEB 01/06/18 10:00 01/09/18 09:59 Vital Signs / I&O Vital Signs Date Time Temp Pulse Resp B/P (MAP) Pulse Ox O2 Delivery O2 Flow Rate FiO2 01/06/18 15:00 98 Room Air 01/06/18 15:00 71 01/06/18 15:00 97.8 70 16 114/69 (84) 98 125/47 (73) 01/06/18 11:00 97 Nasal Cannula 4.00 01/06/18 11:00 97.6 72 16 118/75 (89) 97 127/63 (84) 01/06/18 11:00 71 01/06/18 05:00 97 Room Air 01/06/18 03:00 60 01/05/18 23:06 98.3 67 16 114/64 (81) 97 01/05/18 23:06 97 Room Air 01/05/18 23:00 57 01/05/18 19:45 98.1 65 16 138/75 (96) 98 01/05/18 19:45 98 Room Air 01/05/18 19:00 67 I/O 01/05/18 01/05/18 01/05/18 01/06/18 01/06/18 01/06/18 07:00 15:00 23:00 07:00 15:00 23:00 Intake Total 426 ml 141 ml 1265 ml 2350 ml Output Total 850 ml 420 ml 1900 ml Balance -424 ml 141 ml 845 ml 450 ml Intake Oral 240 ml 1200 ml 240 ml IV Total 186 ml 141 ml 65 ml 110 ml Other 2000 ml Output Urine Total 850 ml 420 ml 1875 ml Estimated Blood Loss 25 ml # Voids 4 # Bowel Movements 0 0 Physical Exam GENERAL: SKIN: Warm and dry. HEAD: Normocephalic. EYES: No scleral icterus. No injection or drainage. NECK: Supple, trachea midline. No JVD or lymphadenopathy. CARDIOVASCULAR: Regular rate and rhythm without murmurs, gallops, or rubs. RESPIRATORY: Breath sounds equal bilaterally. No accessory muscle use. GASTROINTESTINAL: Abdomen soft, non-tender, nondistended. MUSCULOSKELETAL: No cyanosis, or edema. BACK: Nontender without obvious deformity. No CVA tenderness. Laboratory Laboratory Tests Test 01/06/18 05:01 01/06/18 12:00 White Blood Count 6.9 TH/MM3 Red Blood Count 4.67 MIL/MM3 Hemoglobin 14.3 GM/DL Hematocrit 41.0 % Mean Corpuscular Volume 87.7 FL Mean Corpuscular Hemoglobin 30.5 PG Mean Corpuscular Hemoglobin Concent 34.8 % Red Cell Distribution Width 13.3 % Platelet Count 217 TH/MM3 Mean Platelet Volume 8.2 FL Neutrophils (%) (Auto) 66.8 % Lymphocytes (%) (Auto) 18.9 % Monocytes (%) (Auto) 9.1 % Eosinophils (%) (Auto) 4.7 % Basophils (%) (Auto) 0.5 % Neutrophils # (Auto) 4.6 TH/MM3 Lymphocytes # (Auto) 1.3 TH/MM3 Monocytes # (Auto) 0.6 TH/MM3 Eosinophils # (Auto) 0.3 TH/MM3 Basophils # (Auto) 0.0 TH/MM3 CBC Comment DIFF FINAL Differential Comment Platelet Function P2Y12 React Units 175 PRU Blood Urea Nitrogen 20 MG/DL Creatinine 1.00 MG/DL Random Glucose 126 MG/DL Calcium Level 8.9 MG/DL Sodium Level 139 MEQ/L Potassium Level 4.3 MEQ/L Chloride Level 105 MEQ/L Carbon Dioxide Level 27.0 MEQ/L Anion Gap 7 MEQ/L Estimat Glomerular Filtration Rate 75 ML/MIN Activated Partial Thromboplast Time 26.7 SEC Imaging GENERAL: SKIN: Warm and dry. HEAD: Normocephalic. EYES: No scleral icterus. No injection or drainage. NECK: Supple, trachea midline. No JVD or lymphadenopathy. CARDIOVASCULAR: Regular rate and rhythm without murmurs, gallops, or rubs. RESPIRATORY: Breath sounds equal bilaterally. No accessory muscle use. GASTROINTESTINAL: Abdomen soft, non-tender, nondistended. MUSCULOSKELETAL: No cyanosis, or edema. BACK: Nontender without obvious deformity. No CVA tenderness. Last 24 hours Impressions Chest X-Ray 01/06/18 0000 Signed Impressions: CONCLUSION: Negative examination. Assessment and Plan Problem List: (1) STEMI (ST elevation myocardial infarction) ICD Codes: I21.3 - ST elevation (STEMI) myocardial infarction of unspecified site Status: Acute (2) Ventricular fibrillation ICD Codes: I49.01 - Ventricular fibrillation (3) Ischemic cardiomyopathy ICD Codes: I25.5 - Ischemic cardiomyopathy (4) Multi-vessel coronary artery stenosis ICD Codes: I25.10 - Atherosclerotic heart disease of [place] coronary artery without angina pectoris Assessment and Plan 1.) pod # 6 primary pci lad, ekg changes resolved, ef=30-35% with akinetic apex on echo, d/w Dr Mcfadden who read echo, continue aspirin, iv hep, coreg, amio ; effient held per ct surg, , d/w patient Dr mclaughlin 01/06/18, veins and mammary inadequate for cabg, d/w Dr Holman who will accept patient for cabg 01/08/18 @ [facility] ; i think he needs hospital to hospital transfer due being off effient x 6 days and need for iv heparin. will continue aspirin. I discussed option of discharge on aspirin and effient but i am very concerned @ high ischemic burden and decreased lv function which high risk for mortality. His ekg has normalized in the anterior leads suggesting lack of significant necrosis and inflamation; Patient understands options and prefers hospital to hospital transfer to [facility] with cabg by Dr Holman 01/08/18; d/w patient, his daughter and nurse at bedside; Dr with Dr Mclaughlin and aMnda extensively Problem Qualifiers (1) STEMI (ST elevation myocardial infarction): Qualified Codes: I21.3 - ST elevation (STEMI) myocardial infarction of unspecified site Puma Sullivan MD Jan 06, 2018 16:07
[2018-01-06] MEDS ORDERED: SODIUM CHLORIDE 0.9% FLUSH 10 ML FLUSH IV FLUSH SCH (21:00)
[2018-01-07] MEDS ORDERED: PANTOPRAZOLE SOD 40 MG DELAYED RELEASE TAB PO SCH (06:00)
[2018-01-07] MEDS ORDERED: ASPIRIN 81 MG CHEW TAB PO SCH (09:00)
== END 2018-01-06 17:44 | disposition short-term general hospital (02) | DRG 270 ==
LOC: NEPC 10:32 → NEDA 11:00 → EEVIPCON 11:00 → HCVI 12:50
PROVIDERS: ADMIT Internal Medicine Interventional Cardiology; ATTEND Internal Medicine Interventional Cardiology
PROC: 5A02210 Assistance with Cardiac Output using Balloon Pump, Continuous (ICD-10-PCS; principal; 2017-12-31)
PROC: 02703DZ Dilation of Coronary Artery, One Artery with Intraluminal Device, Percutaneous Approach (ICD-10-PCS; 2017-12-31)
PROC: 5A2204Z Restoration of Cardiac Rhythm, Single (ICD-10-PCS; 2017-12-31)
PROC: 4A023N7 Measurement of Cardiac Sampling and Pressure, Left Heart, Percutaneous Approach (ICD-10-PCS; 2017-12-31)
PROC: B2111ZZ Fluoroscopy of Multiple Coronary Arteries using Low Osmolar Contrast (ICD-10-PCS; 2017-12-31)
PROC: B2151ZZ Fluoroscopy of Left Heart using Low Osmolar Contrast (ICD-10-PCS; 2017-12-31)
PROC: B3101ZZ Fluoroscopy of Thoracic Aorta using Low Osmolar Contrast (ICD-10-PCS; 2017-12-31)
PROC: B41G1ZZ Fluoroscopy of Left Lower Extremity Arteries using Low Osmolar Contrast (ICD-10-PCS; 2017-12-31)
PROC: 5A2204Z Restoration of Cardiac Rhythm, Single (ICD-10-PCS; 2017-12-31)
PROC: 06BQ4ZZ Excision of Left Saphenous Vein, Percutaneous Endoscopic Approach (ICD-10-PCS; 2018-01-06)
DX: I21.3 ST elevation (STEMI) myocardial infarction of unspecified site (principal); I49.01 Ventricular fibrillation; I48.0 Paroxysmal atrial fibrillation; I10 Essential (primary) hypertension; I46.2 Cardiac arrest due to underlying cardiac condition; I25.119 Atherosclerotic heart disease of native coronary artery with unspecified angina pectoris; I25.2 Old myocardial infarction; I25.5 Ischemic cardiomyopathy; Z53.8 Procedure and treatment not carried out for other reasons; Z82.0 Family history of epilepsy and other diseases of the nervous system; Z82.49 Family history of ischemic heart disease and other diseases of the circulatory system; R73.9 Hyperglycemia, unspecified; Z98.61 Coronary angioplasty status; Z96.643 Presence of artificial hip joint, bilateral; Z87.891 Personal history of nicotine dependence
CPT/HCPCS: 33967; 36430; 71045; 74018; 80048; 80053; 80061; 80076; 81001; 82310; 82550; 82552; 82948; 83036; 83735; 83880; 84100; 84132; 84484; 85025; 85576; 85610; 85730; 86850; 86900; 86901; 86920; 87086; 87641; 92941; 93005; 93306; 93458; 93880; 93971; 93998; 94010; 96374; C1725; C1769; C1876; C1887; C1893; J0282; J0690; J1644; J2250; J2440; J3010; J3246; J3370; J3475; J3480; J7030; J7060; P9016; Q9967